=== PATIENT | male | born 1945 | race Caucasian/White ===

== ENCOUNTER 2016-08-02 16:35 | Inpatient (IN) | payer MEDICARE ==
[~2016-08-02 16:35] MED LIST: ATOR40TA PO; CENTCHW3 PO; CILO50 PO; DIGO0.127 PO; ECASA PO; FLUO20TA20 PO; LANTUS2P SC; METO25 PO; NOVO7030P2 SQ; PLAV75TA PO; PREV15CA PO; VITA500015 PO
[2016-08-03 22:26] VITALS: BP 158/81; PULSE 63; RESP 18; TEMP 98.2; O2SAT 97
[2016-08-04] VITALS (14 sets, daily range): BP systolic 130–176; BP diastolic 67–81; PULSE 55–71; RESP 18; TEMP 97.5–98.6; O2SAT 96–99
[2016-08-04] MEDS: DEXT 5%-NACL 0.45% 1000 ML INJ 1,000 ML IV SCH ×3 (00:30→23:31)
[2016-08-04] MEDS ORDERED: MORPHINE SULFATE 4 MG/ML INJ IV PUSH PRN (00:30)
[2016-08-04] MEDS ORDERED: DEXTROSE 50% IN WATER 50 ML VIAL(D50) IV PUSH PRN ×2 (01:30→07:00)
[2016-08-04] MEDS ORDERED: GLUCAGON 1 MG/ML VIAL OTHER PRN ×2 (01:30→07:00)
[2016-08-04 06:27] LABS: AUTOMATED NEUTROPHIL # 5.1 TH/MM3 (1.8-7.7); BASOPHIL # 0.1 TH/MM3 (0-0.2); BASOPHIL % 0.9 % (0.0-2.0); EOSINOPHIL # 0.3 TH/MM3 (0-0.4); EOSINOPHIL % 4.4 % (0.0-4.0); HEMATOCRIT 36.3 % (39.0-51.0); HEMO FLAGS DIFF FINAL; LYMPH % 16.5 % (9.0-44.0); LYMPHOCYTE # 1.2 TH/MM3 (1.0-4.8); MEAN CELL VOLUME 80.2 FL (80.0-100.0); MEAN CORPUSCULAR HEMOGLOBIN 27.8 PG (27.0-34.0); MEAN CORPUSCULAR HGB CONC 34.6 % (32.0-36.0); MONO % 6.7 % (0.0-8.0); NEUT % 71.5 % (16.0-70.0); PLATELET COUNT 247 TH/MM3 (150-450); RED BLOOD COUNT 4.52 MIL/MM3 (4.50-5.90); RED CELL DISTRIBUTION WIDTH 13.9 % (11.6-17.2); WHITE BLOOD COUNT 7.2 TH/MM3 (4.0-11.0)
[2016-08-04 06:50] LABS: POTASSIUM 4.3 MEQ/L (3.5-5.1)
[2016-08-04] MEDS: CILOSTAZOL 50 MG TAB PO SCH ×2 (07:00→16:21)
[2016-08-04] MEDS ORDERED: ENOXAPARIN SODIUM 30 MG/0.3 ML SYRINGE SQ SCH (07:00)
[2016-08-04] MEDS: LOW DOSE INSULIN NOVOLOG SUPPLEMENTAL SCALE SQ SCH ×4 (07:00→20:16)
--- NOTE | 2016-08-04 08:24 | HHI.HP ---
History of Present Illness Chief Complaint: R groin infection History of Present Illness 70 yo male with PAD who had R LEGAL PRACTICE MANAGER TEA w/ patch in 2003 and then repeated about a week ago. He was seen at OSH earlier this week and there was clear fluid from the groin and concerns of a groin wound infection. The patient denies fevers, chills or malaise. 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 He has a history of R LE endovascular procedures multiple times. He denies rest pain. At present, he feels well overall. Past/Family/Social History Past Medical History PAD HTN XOL DM CAD Past Surgical History R groin reconstruction x 2 CABG Family History none Home Medications Active Scripts Cilostazol (Pletal 50 mg Tab)50 Mg [id number] Mg PO BIDAC #30 TAB Ref 11 Prov:Eliecer Turcios MD 07/18/15 Aspirin (Aspirin EC)325 Mg [id number] Mg PO DAILY #30 TAB Ref 11 Prov:Eliecer Turcios MD 07/18/15 Reported Medications Fluoxetine Hcl 20MG Cap20 Mg PO DAILY 11/20/14 Cholecalciferol (Vitamin D3)5,000 Unit Cap5,000 Unit PO DAILY 10/07/14 Lansoprazole (Prevacid 24Hr)15 Mg Cap30 Mg PO DAILY 10/07/14 Clopidogrel Bisulfate (Plavix)75 Mg Tab75 Mg PO DAILY 10/07/14 Metoprolol Tartrate 25 mg 25 Mg Tab25 Mg PO BID 10/07/14 Insulin Human Isophan/Regular (Novolin 70/30)100 Units/Ml Inj Sq As Directed Sliding Scale As Directed. 10/07/14 Insulin Glargine (Lantus)100 Units/Ml Inj50 Units SC BID 10/07/14 Digoxin (Digox 0.125 mg)0.125 Mg Tab2 Tab PO DAILY 1 TAB ON Tuesday10/07/14 Atorvastatin 40 mg 40 Mg Tab40 Mg PO HS 10/07/14 Multiple Vitamins W/ Minerals (Centrum Silver)Silver Chw1 Tab PO DAILY 10/07/14 Coded Allergies: No Known Allergies (Unverified , 10/07/14) Review of Systems Constitutional: COMPLAINS OF: Weight loss, DENIES: Fever, Chills Respiratory: COMPLAINS OF: Cough, DENIES: Wheezing, Shortness of breath Cardiovascular: COMPLAINS OF: Dyspnea on Exertion, Lower Extremity Edema, DENIES: Chest pain Physical Exam Vitals/I&O Date Time Temp Pulse Resp B/P Pulse Ox O2 Delivery O2 Flow Rate FiO2 08/04/16 04:00 97.5 55 18 130/69 98 08/04/16 00:00 58 08/03/16 22:26 98.2 63 18 158/81 97 08/04/16 08/04/16 08/04/16 07:00 15:00 23:00 Output Total 700 ml Balance -700 ml Neuro: alert, oriented, pleasant HEENT: NC/AT Neck: no JVD Heart: reg rate Lungs: clear, no wheezing Abdomen: NT Vascular: Palp R groin pulse R groin incision slightly full, closed with yasmani Extremities: no palpable pedal pulses Distal 3rd toe tip gangrenous Laboratory Tests Test 08/04/16 05:05 White Blood Count 7.2 Red Blood Count 4.52 Hemoglobin 12.6 Hematocrit 36.3 Mean Corpuscular Volume 80.2 Mean Corpuscular Hemoglobin 27.8 Mean Corpuscular Hemoglobin 34.6 Concent Red Cell Distribution Width 13.9 Platelet Count 247 Mean Platelet Volume 7.2 Neutrophils (%) (Auto) 71.5 Lymphocytes (%) (Auto) 16.5 Monocytes (%) (Auto) 6.7 Eosinophils (%) (Auto) 4.4 Basophils (%) (Auto) 0.9 Neutrophils # (Auto) 5.1 Lymphocytes # (Auto) 1.2 Monocytes # (Auto) 0.5 Eosinophils # (Auto) 0.3 Basophils # (Auto) 0.1 CBC Comment DIFF FINAL Differential Comment Sodium Level 142 Potassium Level 4.3 Chloride Level 104 Carbon Dioxide Level 33.0 Anion Gap 5 Blood Urea Nitrogen 8 Creatinine 0.79 Estimat Glomerular Filtration 97 Rate Random Glucose 90 Calcium Level 9.4 Assessment and Plan Plan possible R groin infection s/p revasc x 2 1. CV meds : ASA, statin, beta virgilio, SSI for DM 2. FRANTZ, UE/LE vein survey for possible revascularization 3. CTA to eval for dipak-graft fluid Abner Chavez MD FACS lieutenant ballistics [facility] - Heart and Vascular Surgery at [facility] [phone] Abner Chavez MD Aug 04, 2016 08:24
[2016-08-04] MEDS ORDERED: LANSOPRAZOLE 30 MG PO SCH (09:00)
[2016-08-04] MEDS: DIGOXIN 0.125 MG TAB PO SCH (09:15)
[2016-08-04] MEDS: CLOPIDOGREL 75 MG TAB PO SCH (09:15)
[2016-08-04] MEDS: PANTOPRAZOLE SOD 40 MG DELAYED RELEASE TAB PO SCH (09:15)
[2016-08-04] MEDS: ASPIRIN EC 325 MG TABEC PO SCH (09:15)
[2016-08-04] MEDS: METOPROLOL TARTRATE 25 MG TAB PO SCH ×2 (09:15→20:15)
[2016-08-04] MEDS ORDERED: IOHEXOL 350 MG/ML 10 ML VIAL (for RAD DIAG) IV ONE (09:46)
--- NOTE | 2016-08-04 10:15 | RADRPT ---
EXAM DATE/TIME: 08/04/2016 09:50 [facility] COMPARISON: No previous studies available for comparison. INDICATIONS : Evaluate for penumonia, pneumothorax,or communicable disease. Pre op for femoral bypass. MEDICAL HISTORY : Hypertension. Hypercholesterolemia. Hiatal hernia. CAD. Myocardial infarction. PVD. COPD. Diabeti c. SURGICAL HISTORY : CABG. Cardiac stent. ENCOUNTER: Initial ACUITY: 1 day PAIN SCORE: 0/10 LOCATION: chest FINDINGS: PA and lateral views of the chest demonstrate the lungs to be symmetrically aerated without evidence of mass, infiltrate or effusion. The cardiomediastinal contours are unremarkable. Osseous structure s are intact. CONCLUSION: Sternal wires of previous bypass otherwise negative Todd Gage MD FACR on August 04, 2016 at 10:11 Board Certified Radiologist. This report was verified electronically.
--- NOTE | 2016-08-04 11:01 | RADRPT ---
EXAM DATE/TIME: 08/04/2016 09:32 [facility] COMPARISON: No previous studies available for comparison. INDICATIONS : Peripheral arterial disease. IV CONTRAST: 97 cc Omnipaque 350 (iohexol) IV RADIATION DOSE: 10.61 CTDIvol (mGy) MEDICAL HISTORY : Hypertension. Peripheral vascular disease.Laryngeal cancer, diabetes SURGICAL HISTORY : CABG Right leg endovascular procedures, left femoral stent ENCOUNTER: Initial ACUITY: 1 day PAIN SCALE: 0/10 LOCATION: lower quadrant TECHNIQUE: Volumetric scanning was performed using a multi-row detector CT scanner. The data was post processed with a variety of visualization algorithms including full volume maximum intensity projection, multi -planar sliding thin slab reformation, curved planar reformation, and surface rendering techniques. Using automated exposure control and adjustment of the mA and/or kV according to patient size, radiat ion dose was kept as low as reasonably achievable to obtain optimal diagnostic quality images. FINDINGS: Examination of the lung bases demonstrates no abnormality. No pleural fluid is identified. No pulmona ry nodules are present. The visualized portion of the liver and spleen are normal. The gallbladder an d pancreas are unremarkable. No intrahepatic or extrahepatic ductal dilatation is seen. The adrenal g lands and kidneys appear normal bilaterally. No hydronephrosis or mass lesions are identified. There is a moderate amount of fecal material throughout the colon. The aorta is normal in caliber. There is no evidence of aneurysm or dissection. The celiac and superi or mesenteric arteries are patent. The left renal artery origin is patent. An accessory right renal a rtery is present. There is 60-70% stenosis at the origin of the main right renal artery Examination of the right lower extremity demonstrates no evidence of inflow stenosis. The common femo ral artery is patent with recent surgery. There is long segment occlusion of the superficial femoral artery with a stent in place with reconstitution of the distal popliteal segment. There is two vessel runoff to the ankle via the posterior tibial and peroneal branch though there is diffuse disease inv olving the peroneal branch. Examination of the left lower extremity demonstrates no evidence of inflow stenosis. The common femor al artery demonstrates 70-80% stenosis in its midportion with a stent in the proximal superficial fem oral artery demonstrating complete occlusion. There is reconstitution at the distal portion of the st ent with diffuse atherosclerotic disease in the distal superficial femoral artery and popliteal segme nt. There is extensive calcific disease involving the trifurcation with single vessel runoff via the posterior tibial artery. CONCLUSION: 1. Long segment occlusion of both superficial femoral arteries. 2. No inflow stenosis is identified. 3. There is single vessel runoff bilaterally via the posterior tibial arteries. Eddy Cruz MD on August 04, 2016 at 10:49 Board Certified Radiologist. This report was verified electronically.
[2016-08-04] MEDS: hydrALAZINE HCL 20 MG/ML VIAL IV PUSH PRN ×2 (12:13→16:22)
[2016-08-04] MEDS: MULTIVITAMINS/MINERALS THERAPEUTIC TAB PO SCH (12:34)
[2016-08-04] MEDS: FLUoxetine HCL 20 MG CAP PO SCH (12:34)
[2016-08-04] MEDS: CHOLECALCIFEROL (VIT D3) 5000 UNIT CAP PO SCH (13:00)
[2016-08-04] MEDS ORDERED: ONDANSETRON HCL 4 MG/2 ML VIAL IV PUSH PRN (15:15)
--- NOTE | 2016-08-04 16:41 | RADRPT ---
EXAM DATE/TIME: 08/04/2016 13:07 [place] Corrected on: August 04, 2016; [facility] COMPARISON: CTA RUNOFF W 3D RECON, August 04, 2016, 9:32. EXTERNAL COMPARISON : [facility], CTA Aorta runoff, June 04, 2016POI, Ultrasound leg mapping venous, 01/20/11 an d 12/28/10. POI, Venous doppler bilateral legs, 12/28/10. INDICATIONS : PreOp. MEDICAL HISTORY : Hypertension. Afib. Carotid stenosis. CAD. Hyperlipidemia. Diabetic. Hypertension. PVD. SURGICAL HISTORY : Left PST SUPERVISOR stent. Right endarterectomy. ENCOUNTER: Initial ACUITY: 1 day PAIN SCORE: 0/10 LOCATION: Bilateral leg. TECHNIQUE: Venous ultrasound of the left and right leg was performed from the inguinal ligament to the proximal calf. Real-time, color Doppler and spectral tracing, compression and augmentation techniques were us ed. FINDINGS: RIGHT LEG: There is normal compressibility of the deep venous system from the inguinal region to the proximal ca lf. No echogenic clot is seen in the lumen of the common femoral, femoral, popliteal, and posterior tibial veins. There is a normal response of the venous system to proximal and distal augmentation an d respiration. LEFT LEG: There is normal compressibility of the deep venous system from the inguinal region to the proximal ca lf. No echogenic clot is seen in the lumen of the common femoral, femoral, popliteal, and posterior tibial veins. There is a normal response of the venous system to proximal and distal augmentation an d respiration. CONCLUSION: Negative for deep venous thrombosis. Common femoral on the right is not visualized due to surgical b andage. Minimal thrombus is identified in the greater saphenous vein below the knee on the left. Todd Gage MD FACR on August 04, 2016 at 16:38 Board Certified Radiologist. This report was verified electronically. Todd Gage MD FACR on August 04, 2016 at 16:46 Board Certified Radiologist. This report was verified electronically.
--- NOTE | 2016-08-04 16:42 | RADRPT ---
EXAM DATE/TIME: 08/04/2016 13:14 [facility] COMPARISON: No previous studies available for comparison. INDICATIONS : PreOp. MEDICAL HISTORY : Hypertension. Diabetic. Afib. Carotid stenosis. CAD. Hyperlipidemia. Diabetic. PVD. SURGICAL HISTORY : Carotid endarterectomy. Left INSTRUMENT CHECKER stent. ENCOUNTER: Initial ACUITY: 1 day PAIN SCORE: 0/10 LOCATION: Bilateral leg. GREATER SAPHENOUS VEIN THIGH: PROXIMAL: Right 3 mm Left 3 mm MID: Right 2 mm Left 2 mm DISTAL: Right 2 mm Left 3 mm CALF: PROXIMAL: Right 1 mm Left 2 mm MID: Right 1 mm Left Thrombosed DISTAL: Right Non-visualized Left Non-visualized FINDINGS: The venous system of the lower extremities are patent by color Doppler imaging. Measurements of the leg veins (in mm) are listed above. CONCLUSION: Venous mapping as described above. There is thrombosis in the left mid greater saphe nous vein.. Todd Gage MD FACR on August 04, 2016 at 16:39 Board Certified Radiologist. This report was verified electronically.
--- NOTE | 2016-08-04 16:43 | RADRPT ---
EXAM DATE/TIME: 08/04/2016 13:39 [facility] COMPARISON: No previous studies available for comparison. EXTERNAL COMPARISON : [facility], CTA Aorta runoff, June 04, 2016POI, Ultrasound leg mapping venous, 01/20/11 an d 12/28/10. POI, Venous doppler bilateral legs, 12/28/10. INDICATIONS : PreOp. MEDICAL HISTORY : Hypertension. Afib. Carotid stenosis. CAD. Hyperlipidemia. Diabetic. Hypertention. PVD. SURGICAL HISTORY : Carotid endarterectomy right. Left ELECTROLYTIC DE SCALER stent. ENCOUNTER: Initial ACUITY: 1 day PAIN SCORE: 0/10 LOCATION: Bilateral arm. FINDINGS: RIGHT UPPER EXTREMITY: There is spontaneous flow documented in the brachial, basilic, cephalic, axillary, and subclavian vei ns. The vessels are compressible and augmentation response is documented. No filling defects are se en. The flow is phasic with respiration. Direction of flow in the jugular vein is caudal. LEFT UPPER EXTREMITY: There is spontaneous flow documented in the brachial, basilic, cephalic, axillary, and subclavian vei ns. The vessels are compressible and augmentation response is documented. No filling defects are se en. The flow is phasic with respiration. Direction of flow in the jugular vein is caudal. CONCLUSION: Negative for venous thrombosis. Todd Gage MD FACR on August 04, 2016 at 16:40 Board Certified Radiologist. This report was verified electronically.
--- NOTE | 2016-08-04 16:43 | RADRPT ---
EXAM DATE/TIME: 08/04/2016 13:56 [facility] COMPARISON: No previous studies available for comparison. EXTERNAL COMPARISON : [facility], CTA Aorta runoff, June 04, 2016POI, Ultrasound leg mapping venous, 01/20/11 an d 12/28/10. POI, Venous doppler bilateral legs, 12/28/10. INDICATIONS : PreOp. MEDICAL HISTORY : Hypertension. Diabetic. Afib. Carotid stenosis. CAD. Hyperlipidemia. PVD. SURGICAL HISTORY : Cartoid endarterectomy right. Left common femoral artery stent. ENCOUNTER: Initial ACUITY: 1 day PAIN SCORE: 0/10 LOCATION: Bilateral arm. CEPHALIC: ORIGIN: Right 1 mm Left 1 mm MID-ARM: Right 2 mm Left 1 mm ELBOW: Right 1 mm Left 2 mm FOREARM: Right 2 mm Left 1 mm WRIST: Right Non-visualized Left 1 mm BASILIC: ORIGIN: Right 5 mm Left 5 mm MID-ARM: Right 2 mm Left 5 mm ELBOW: Right 3 mm Left 3 mm ARTERIES: BRACHIAL: Right 5 mm Left 4 mm ULNAR: Right 2 mm Left 2 mm RADIAL: Right 1 mm Left 1 mm VEINS: RADIAL: Right 1 mm Left 1 mm ULNAR: Right 2 mm Left 1 mm FINDINGS: The venous system of the upper extremities are patent by color Doppler imaging. Measurements of the arm veins (in mm) are listed above. CONCLUSION: Venous mapping as described above. Todd Gage MD FACR on August 04, 2016 at 16:41 Board Certified Radiologist. This report was verified electronically.
[2016-08-04 17:18] LABS: HEMOGLOBIN A1a 0.6 %; HEMOGLOBIN A1b 0.7 %; HEMOGLOBIN Ao 85.9 %; HEMOGLOBIN F 0.8 %; HEMOGLOBIN LA1C 1.6 %; HEMOGLOBIN P3 3.4 %
[2016-08-04] MEDS ORDERED: ATORVASTATIN 40 MG TAB PO SCH (21:00)
[2016-08-05] VITALS (8 sets, daily range): BP systolic 121–188; BP diastolic 58–80; PULSE 64–85; RESP 16–20; TEMP 97.6–98.3; O2SAT 97–98
[2016-08-05] MEDS: LOW DOSE INSULIN NOVOLOG SUPPLEMENTAL SCALE SQ SCH ×2 (04:56→10:51)
[2016-08-05] MEDS: CILOSTAZOL 50 MG TAB PO SCH (04:57)
[2016-08-05] MEDS: hydrALAZINE HCL 20 MG/ML VIAL IV PUSH PRN (05:00)
[2016-08-05 06:50] LABS: MEAN CELL VOLUME 80.6 FL (80.0-100.0); MEAN CORPUSCULAR HEMOGLOBIN 26.7 PG (27.0-34.0); MEAN CORPUSCULAR HGB CONC 33.1 % (32.0-36.0); PLATELET COUNT 228 TH/MM3 (150-450); RED BLOOD COUNT 4.71 MIL/MM3 (4.50-5.90); RED CELL DISTRIBUTION WIDTH 13.9 % (11.6-17.2); REVIEW FLAG FINAL; WHITE BLOOD COUNT 5.9 TH/MM3 (4.0-11.0)
[2016-08-05 07:23] LABS: BICARBONATE 31.2 MEQ/L (21.0-32.0); POTASSIUM 3.9 MEQ/L (3.5-5.1)
[2016-08-05] MEDS: CLOPIDOGREL 75 MG TAB PO SCH (09:53)
[2016-08-05] MEDS: FLUoxetine HCL 20 MG CAP PO SCH (09:53)
[2016-08-05] MEDS: DIGOXIN 0.125 MG TAB PO SCH (09:53)
[2016-08-05] MEDS: PANTOPRAZOLE SOD 40 MG DELAYED RELEASE TAB PO SCH (09:54)
[2016-08-05] MEDS: ASPIRIN EC 325 MG TABEC PO SCH (09:54)
[2016-08-05] MEDS: METOPROLOL TARTRATE 25 MG TAB PO SCH (09:54)
[2016-08-05] MEDS: MULTIVITAMINS/MINERALS THERAPEUTIC TAB PO SCH (09:54)
[2016-08-05] MEDS: CHOLECALCIFEROL (VIT D3) 5000 UNIT CAP PO SCH (10:06)
--- NOTE | 2016-08-05 10:45 | PD.VS.PN ---
Subjective Subjective/Hospital Course Pt adm with concerns of groin infection because of slight drainage caudal aspect of the wound. He feels well and has no F/C. His WBC is normal. His wound actually looks quite good. CTA yesterday showed no obvious infection - only normal post-operative changes. Foot ok and middle toe stable dry gangrene. No rest pain Objective Vitals/I&O Date Time Temp Pulse Resp B/P Pulse Ox O2 Delivery O2 Flow Rate FiO2 08/05/16 10:00 76 08/05/16 09:00 85 08/05/16 08:00 70 08/05/16 07:00 74 08/05/16 07:00 97.9 77 20 165/69 97 08/05/16 06:02 149/58 08/05/16 04:00 68 08/05/16 04:00 97.7 73 18 188/80 98 08/05/16 00:00 98.3 67 16 121/72 98 08/05/16 00:00 64 08/04/16 20:00 66 08/04/16 20:00 98.6 71 18 131/69 99 08/04/16 18:01 68 08/04/16 17:00 66 08/04/16 16:00 66 08/04/16 15:45 62 08/04/16 15:45 98.1 61 18 176/81 96 08/04/16 14:02 58 08/04/16 13:05 59 08/04/16 12:22 58 08/04/16 11:15 97.5 59 18 173/67 99 08/04/16 11:15 55 08/05/16 08/05/16 08/05/16 07:00 15:00 23:00 Intake Total 1680 ml Output Total 1650 ml Balance 30 ml Physical Exam R groin incision intact with yasmani. Minimal serosanguinous drainage caudal aspect of wound. No surrounding erythema. Laboratory Laboratory Tests Test 08/05/16 05:50 White Blood Count 5.9 Red Blood Count 4.71 Hemoglobin 12.6 Hematocrit 38.0 Mean Corpuscular Volume 80.6 Mean Corpuscular Hemoglobin 26.7 Mean Corpuscular Hemoglobin 33.1 Concent Red Cell Distribution Width 13.9 Platelet Count 228 Mean Platelet Volume 7.3 Sodium Level 141 Potassium Level 3.9 Chloride Level 103 Carbon Dioxide Level 31.2 Anion Gap 7 Blood Urea Nitrogen 7 Creatinine 0.80 Estimat Glomerular Filtration 95 Rate Random Glucose 188 Calcium Level 9.3 Imaging Last 48 hours Impressions Upper Extremity Ultrasound 08/04/16 Signed Impressions: Service Date/Time: Thursday, August 04, 2016 13:39 - CONCLUSION: Negative for venous thrombosis. Todd Gage MD FACR Upper Extremity Ultrasound 08/04/16 Signed Impressions: Service Date/Time: Thursday, August 04, 2016 13:56 - CONCLUSION: Venous mapping as described above. Todd Gage MD FACR Lower Extremity Ultrasound 08/04/16 Signed Impressions: Service Date/Time: Thursday, August 04, 2016 13:07 - CONCLUSION: Negative for deep venous thrombosis. Common femoral on the right is not visualized due to surgical bandage. Minimal thrombus is identified in the greater saphenous vein below the knee on the left. Todd Gage MD FACR Lower Extremity Ultrasound 08/04/16 Signed Impressions: Service Date/Time: Thursday, August 04, 2016 13:14 - CONCLUSION: Venous mapping as described above. There is thrombosis in the left mid greater saphenous vein.. Todd Gage MD FACR Chest X-Ray 08/04/16 Signed Impressions: Service Date/Time: Thursday, August 04, 2016 09:50 - CONCLUSION: Sternal wires of previous bypass otherwise negative Todd Gage MD FACR Aorta w/Runoff CTA 08/04/16 Signed Impressions: Service Date/Time: Thursday, August 04, 2016 09:32 - CONCLUSION: 1. Long segment occlusion of both superficial femoral arteries. 2. No inflow stenosis is identified. 3. There is single vessel runoff bilaterally via the posterior tibial arteries. Eddy Cruz MD Assessment and Plan Plan possible R groin infection s/p revasc x 2; CTA unimpressive for infection and no clinical signs of infection 1. CV meds : ASA, statin, beta virgilio, SSI for DM 2. d/c home and RTC 1 week. 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 3. In terms of his underlying PAD, I will get ABIs as outpatient. He may need add'l revasc for the toe wound. Abner Chavez MD FACS staff physician [facility] - Heart and Vascular Surgery at [facility] [phone] Discharge Planning today. RTC 1 week with Abner Swenson MD Aug 05, 2016 10:45
--- NOTE | 2016-08-05 11:06 | PD.VS.DC ---
Discharge Summary Admission Date: Aug 03, 2016 at 22:20 Discharge Date: Aug 05, 2016 Admission Diagnosis: (1) PAD (peripheral artery disease) Discharge Diagnosis: (1) PAD (peripheral artery disease) Status: Chronic Brief History from admission 70 yo male with PAD who had R [employer] TEA w/ patch in 2003 and then repeated about a week ago. He was seen at OSH earlier this week and there was clear fluid from the groin and concerns of a groin wound infection. The patient denies fevers, chills or malaise. 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 He has a history of R LE endovascular procedures multiple times. He denies rest pain. At present, he feels well overall. Procedure(s): Imaging No surgical intervention Significant Findings GENERAL: A&OX3, GCS15, NAD, Pleasant 70/M SKIN: Warm and dry , Right groin incision with staple closure intact/ minimal serosanguineous drainage noted, skin clean and dry with no redness/swelling/odor RESPIRATORY: No accessory muscle use. MUSCULOSKELETAL: No cyanosis, or edema. Right 3rd digit (toe) present with dry gangrene, BLE warm with motor intact Laboratory Tests Test 08/04/16 08/05/16 05:05 05:50 Hemoglobin 12.6 GM/DL 12.6 GM/DL (13.0-17.0) (13.0-17.0) Hematocrit 36.3 % 38.0 % (39.0-51.0) (39.0-51.0) Neutrophils (%) (Auto) 71.5 % (16.0-70.0) Eosinophils (%) (Auto) 4.4 % (0.0-4.0) Carbon Dioxide Level 33.0 MEQ/L (21.0-32.0) Hemoglobin A1c 6.4 % (4.3-6.0) Mean Corpuscular Hemoglobin 26.7 PG (27.0-34.0) Random Glucose 188 MG/DL (74-106) Hospital Course: Mr. Rojo is a 70 yo male with a PMH of PAD who had R [employer]CTOR TEA w/ patch in 2003 and then repeated about a week ago. He was seen at OSH earlier this week and there was clear fluid from the groin and concerns of a groin wound infection. The patient denies fevers, chills or malaise. 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 He has a history of R LE endovascular procedures multiple times. He denies rest pain. At present, he feels well overall. Pt with possible R groin infection s/p revasc x 2; CTA unimpressive for infection and no clinical signs of infection. Pt Ok for D/C today and will f/u in our OPC on 08/13/16. Will continue to monitor pt in our OPC Allergies Coded Allergies Type Severity Reaction Last Updated Verified No Known Allergies 10/07/14 No Recent Impressions Upper Extremity Ultrasound 08/04/16 0000 Signed Impressions: Service Date/Time: Thursday, August 04, 2016 13:39 - CONCLUSION: Negative for venous thrombosis. Todd Gage MD FACR Upper Extremity Ultrasound 08/04/16 0000 Signed Impressions: Service Date/Time: Thursday, August 04, 2016 13:56 - CONCLUSION: Venous mapping as described above. Todd Gage MD FACR Lower Extremity Ultrasound 08/04/16 0000 Signed Impressions: Service Date/Time: Thursday, August 04, 2016 13:07 - CONCLUSION: Negative for deep venous thrombosis. Common femoral on the right is not visualized due to surgical bandage. Minimal thrombus is identified in the greater saphenous vein below the knee on the left. Todd Gage MD FACR Lower Extremity Ultrasound 08/04/16 0000 Signed Impressions: Service Date/Time: Thursday, August 04, 2016 13:14 - CONCLUSION: Venous mapping as described above. There is thrombosis in the left mid greater saphenous vein.. Todd Gage MD FACR Chest X-Ray 08/04/16 0000 Signed Impressions: Service Date/Time: Thursday, August 04, 2016 09:50 - CONCLUSION: Sternal wires of previous bypass otherwise negative Todd Gage MD FACR Aorta w/Runoff CTA 08/04/16 0000 Signed Impressions: Service Date/Time: Thursday, August 04, 2016 09:32 - CONCLUSION: 1. Long segment occlusion of both superficial femoral arteries. 2. No inflow stenosis is identified. 3. There is single vessel runoff bilaterally via the posterior tibial arteries. Eddy Cruz MD 08/03////// 06:00 18:00 06:00 18:00 06:00 18:00 Intake Total 1395 ml 1680 ml Output Total 700 ml 1650 ml Balance -700 ml 1395 ml 30 ml Intake Oral 720 ml 480 ml IV Total 675 ml 1200 ml Output Urine Total 700 ml 1650 ml # Bowel Movements 1 Laboratory Tests Test 08/04/16 08/05/16 05:05 05:50 White Blood Count 7.2 TH/MM3 5.9 TH/MM3 Red Blood Count 4.52 MIL/MM3 4.71 MIL/MM3 Hemoglobin 12.6 GM/DL 12.6 GM/DL Hematocrit 36.3 % 38.0 % Mean Corpuscular Volume 80.2 FL 80.6 FL Mean Corpuscular Hemoglobin 27.8 PG 26.7 PG Mean Corpuscular Hemoglobin 34.6 % 33.1 % Concent Red Cell Distribution Width 13.9 % 13.9 % Platelet Count 247 TH/MM3 228 TH/MM3 Mean Platelet Volume 7.2 FL 7.3 FL Neutrophils (%) (Auto) 71.5 % Lymphocytes (%) (Auto) 16.5 % Monocytes (%) (Auto) 6.7 % Eosinophils (%) (Auto) 4.4 % Basophils (%) (Auto) 0.9 % Neutrophils # (Auto) 5.1 TH/MM3 Lymphocytes # (Auto) 1.2 TH/MM3 Monocytes # (Auto) 0.5 TH/MM3 Eosinophils # (Auto) 0.3 TH/MM3 Basophils # (Auto) 0.1 TH/MM3 CBC Comment DIFF FINAL Differential Comment Sodium Level 142 MEQ/L 141 MEQ/L Potassium Level 4.3 MEQ/L 3.9 MEQ/L Chloride Level 104 MEQ/L 103 MEQ/L Carbon Dioxide Level 33.0 MEQ/L 31.2 MEQ/L Anion Gap 5 MEQ/L 7 MEQ/L Blood Urea Nitrogen 8 MG/DL 7 MG/DL Creatinine 0.79 MG/DL 0.80 MG/DL Estimat Glomerular Filtration 97 ML/MIN 95 ML/MIN Rate Random Glucose 90 MG/DL 188 MG/DL Hemoglobin A1c 6.4 % Calcium Level 9.4 MG/DL 9.3 MG/DL Procedure Category Date Status Time Complete Blood Count LAB 08/04/16 Complete With Diff 06:00 Basic Metabolic Panel LAB 08/04/16 Complete (Bmp) 06:00 ^ IV JESSICA 08/04/16 In Process 00:17 ^ Instruction [facility] 08/04/16 In Process 00:17 ^ Blood Glucose Goal [facility] 08/04/16 In Process (Criteria 00:17 ^ Hypoglycemia 51 - JESSICA 08/04/16 In Process 69 Mg/Dl 00:17 ^ Hypoglycemia 50 JESSICA 08/04/16 In Process Mg/Dl Or < 00:17 ^ Notify DrLia LOPEZ 08/04/16 In Process 00:17 Dext 5%-Nacl 0.45% MED 08/04/16 In Process 1000 Ml Inj (D5w-05/10 00:30 Morphine Inj MED 08/04/16 In Process (Morphine Inj) 00:30 Dextrose 50% In Mik MED 08/04/16 Complete (Vial) Inj (D50w (Vi 01:30 Glucagon Inj MED 08/04/16 Complete (Glucagon Inj) 01:30 Insulin Aspart MED 08/04/16 In Process Supplemtl Scale 07:00 Admit To Inpatient ADMITTING 08/04/16 Transmitted Code Status CODE 08/04/16 Transmitted 06:53 Vital Signs (Adult) [facility] 08/04/16 In Process 06:53 Sales And Marketing Engineer / [facility] 08/04/16 Complete Telemetry 06:53 Activity Oob Ad Susana [facility] 08/04/16 In Process 06:53 ^ Notify Dr. LOPEZ 08/04/16 In Process Parameters 06:53 ^ Precautions [facility] 08/04/16 In Process 06:53 Diet 1800 Ada Cons DIET 08/04/16 Transmitted Carb Breakfast Basic Metabolic Panel LAB 08/05/16 Complete (Bmp) 06:00 Cbc No Diff, Includes LAB 08/05/16 Complete Plts 06:00 Chest, Pa & Lat RADDIAG 08/04/16 Resulted Case Management CONS 08/04/16 Transmitted Consult Pantoprazole MED 08/04/16 In Process (Protonix) 09:00 Oxycodone (Roxicodone) MED 08/04/16 In Process 07:00 Enoxaparin Inj MED 08/04/16 Complete (Lovenox Inj) 07:00 Inpatient ADMITTING 08/04/16 Transmitted Certification Aspirin Ec (Ecotrin MED 08/04/16 In Process Ec) 09:00 Atorvastatin (Lipitor) MED 08/04/16 In Process 21:00 Cilostazol (Pletal) MED 08/04/16 In Process 07:00 Clopidogrel (Plavix) MED 08/04/16 In Process 09:00 Digoxin (Lanoxin) MED 08/04/16 In Process 09:00 Metoprolol Tartrate MED 08/04/16 In Process (Lopressor) 09:00 Cholecalciferol MED 08/04/16 In Process (Vitamin D3) 13:00 Fluoxetine (Prozac) MED 08/04/16 In Process 12:15 Multivitamins-Minerals MED 08/04/16 In Process Therap (Theragran 12:15 Arterial Segmt Dopp CAV 08/04/16 Logged Ltd Monalisa Us Venous Mapping Up RADUS 08/04/16 Resulted Ext Bilat Us Venous Mapping Low RADUS 08/04/16 Resulted Ext Bila Cta Runoff W Iv RADCT 08/04/16 Resulted Contrast W 3d ^ Blood Glucose Goal JESSICA 08/04/16 In Process (Criteria 06:58 ^ Hypoglycemia 51 - JESSICA 08/04/16 In Process 69 Mg/Dl 06:58 ^ Hypoglycemia 50 JESSICA 08/04/16 In Process Mg/Dl Or < 06:58 ^ Notify Dr: Other JESSICA 08/04/16 In Process 06:58 Dextrose 50% In Mik MED 08/04/16 In Process (Vial) Inj (D50w (Vi 07:00 Glucagon Inj MED 08/04/16 In Process (Glucagon Inj) 07:00 Vascular Poc IMGUS 08/04/16 Taken Ultrasound Us Leg Venous Doppler [facility] 08/04/16 Resulted Bilat Us Arm Venous Doppler RADUS 08/04/16 Resulted Bilat Hemoglobin (Hgb) A1c LAB 08/04/16 Complete 08:25 Iohexol 350 Inj MED 08/04/16 Complete (Omnipaque 350 Inj) 09:46 Hydralazine Inj MED 08/04/16 In Process (Apresoline Inj) 11:30 Ondansetron Inj MED 08/04/16 In Process (Zofran Inj) 15:15 Attending Discharge DISCHARGE 08/05/16 Transmitted Order Vital Signs Date Time Temp Pulse Resp B/P Pulse Ox O2 Delivery O2 Flow Rate FiO2 08/05/16 10:00 76 08/05/16 09:00 85 08/05/16 08:00 70 08/05/16 07:00 74 08/05/16 07:00 97.9 77 20 165/69 97 08/05/16 06:02 149/58 08/05/16 04:00 68 08/05/16 04:00 97.7 73 18 188/80 98 08/05/16 00:00 98.3 67 16 121/72 98 08/05/16 00:00 64 08/04/16 20:00 66 08/04/16 20:00 98.6 71 18 131/69 99 08/04/16 18:01 68 08/04/16 17:00 66 08/04/16 16:00 66 08/04/16 15:45 62 08/04/16 15:45 98.1 61 18 176/81 96 08/04/16 14:02 58 08/04/16 13:05 59 08/04/16 12:22 58 08/04/16 11:15 97.5 59 18 173/67 99 08/04/16 11:15 55 08/04/16 10:31 57 08/04/16 09:00 56 08/04/16 07:45 97.6 60 18 165/72 98 08/04/16 07:45 56 08/04/16 04:00 97.5 55 18 130/69 98 08/04/16 00:00 58 08/03/16 22:26 98.2 63 18 158/81 97 Discharge Condition: Good Discharge Disposition: Discharge Home Discharge Instructions: Follow up in our OPC on 08/13/16 Call the office to report any new onset fever, chills, redness, increased drainage, odor or swelling. Keep dressing clean and dry and change as needed if soiled Shannon IBRAHIM [facility] [phone] Any questions or concerns: Call [facility] V[facility] Surgery at [facility] [phone] Shannon Martinez Aug 05, 2016 11:06
[2016-09-24] MEDS ORDERED: FISH500C PO (12:02)
[2016-09-24] MEDS ORDERED: ATOR40TA16 PO (12:02)
[2016-09-24] MEDS ORDERED: PLAV75TA29 PO (12:02)
[2016-09-24] MEDS ORDERED: PREV15CA PO (12:02)
[2016-09-24] MEDS ORDERED: CENTTAB PO (12:02)
[2016-09-24] MEDS ORDERED: ASPI1TAB69 PO (12:02)
[2016-09-24] MEDS ORDERED: CHOL50008 PO (12:02)
[2016-09-24] MEDS ORDERED: NAPR220T95 PO (12:02)
[2016-09-24] MEDS ORDERED: METO100T PO (12:02)
[2016-09-24] MEDS ORDERED: CILO100T PO (12:02)
[2016-09-24] MEDS ORDERED: LANTUS2P SQ (12:02)
[2016-09-24] MEDS ORDERED: NOVORP2 SQ (12:02)
[2016-09-24] MEDS ORDERED: DIGO0.12 PO ×2 (12:02)
[2016-09-24] MEDS ORDERED: FLUO20CA4 PO (12:02)
[2016-09-27] MEDS ORDERED: METO50TA PO (13:24)
== END 2016-08-05 12:31 | disposition home or self-care (01) | DRG 301 ==
LOC: HCIS 08-03 22:20
PROVIDERS: ADMIT Surgery; ATTEND Surgery
PROC: B41DZZZ Fluoroscopy of Aorta and Bilateral Lower Extremity Arteries (ICD-10-PCS; principal; 2016-08-04)
DX: I70.261 Atherosclerosis of native arteries of extremities with gangrene, right leg (principal); I48.91 Unspecified atrial fibrillation; E11.9 Type 2 diabetes mellitus without complications; I10 Essential (primary) hypertension; I70.202 Unspecified atherosclerosis of native arteries of extremities, left leg; I25.10 Atherosclerotic heart disease of native coronary artery without angina pectoris; Z79.4 Long term (current) use of insulin; Z95.1 Presence of aortocoronary bypass graft
CPT/HCPCS: 71020; 75635; 76937; 80048; 82948; 83036; 85025; 85027; 93970; 93998; J0360; J1815; Q9967

== ENCOUNTER → 2016-09-27 | Day surgery (SDC) | payer MEDICARE ==
[~2016-09-27] MED LIST changes: +ASPI1TAB69 PO; +ASPI1TAB91 PO; -ATOR40TA PO; +ATOR40TA16 PO; +AUGM875T3 PO; +BUPIVACAINE HCL PF 0.5% 30 ML VIAL ONE; +CENTTAB PO; +CHLORHEXIDINE GLUCONATE 2 % 1 PACK (2 CLOTHS) TOPICAL PRN; +CHOL5000 PO; +CHOL50008 PO; +CILO100T PO; -CILO50 PO; +DIGO0.12 PO; -DIGO0.127 PO; -ECASA PO; +FISH500C PO; +FLUO10CA4 PO; +FLUO20CA4 PO; -FLUO20TA20 PO; +HALO0.5T PO; +INSULIN HUMAN REGULAR 1,000 UNITS/10 ML VIAL SQ PRN; +LACTATED RINGER'S 1000 ML IV PRN; -LANTUS2P SC; +LANTUS2P SQ; +MEDI220T PO; +METO100T PO; -METO25 PO; +METO50TA PO; +METOPROLOL TARTRATE 25 MG TAB PO PRN; +NAPR220T95 PO; -NOVO7030P2 SQ; +NOVORP2 SQ; +ONDANSETRON HCL 4 MG/2 ML VIAL IV PUSH ONE; +OXYC1CAP PO; +PHENYLEPH/NS 1000 MCG/10 ML SYR IV ONE; -PLAV75TA PO; +PLAV75TA29 PO; +POVIDONE IODINE 5% (ANTISEPSIS KIT) 4 APPLICATIONS EACH NARE PRN; +PROPOFOL 200 MG/20 ML AMP IV ONE; +PROZ20CA11 PO; +SODIUM CHLORID 0.9% 500 ML IV PRN; -VITA500015 PO; +ceFAZolin 2 GM PREMIX 50 ML ONE
[2016-09-27 13:31] VITALS: BP 140/76; PULSE 78; RESP 16; TEMP 97.1; O2SAT 98
[2016-09-27 13:52] LABS: BLOOD, URINE NEG (NEG); COMMENT (UR) CULT NOT INDICATED; CULTURE IF INDICATED CULT NOT INDICATED; GLUCOSE,URINE TRACE mg/dL (NEG); KETONE, URINE NEG (NEG); MUCUS URINE FEW /lpf (OCC); NITRITE,URINE NEG (NEG); URINE COLOR YELLOW (YELLW/STRAW)
--- NOTE | 2016-09-27 14:22 | HHI.PR ---
Immediate Post Op Note Procedure Date: September 27, 2016 Pre Op Diagnosis: R 3rd toe osteomyelitis Post Op Diagnosis: R 3rd toe osteomyelitis Surgeon: Abner Chavez Payroll Processor(s): none Procedure: R 3rd toe amputation (Ray) Findings: no infection, decent perfusion Complications: none Specimen(s) removed: R 3rd toe Estimated blood loss: 20mL Anesthesia: LMA Drains: None Fluids: 500mL IVF Patient to: PACU Patient Condition: Good Date/Time of Procedure: SEE SURGICAL CARE RECORD Abner Chavez MD September 27, 2016 14:22
[2016-09-27 15:35] VITALS: BP 154/74; PULSE 75; RESP 16; TEMP 97.3; O2SAT 99
--- NOTE | 2016-09-28 11:05 | MP ---
cc: ABNER CHAVEZ MD DATE OF SURGERY: 09/27/2016 PREOPERATIVE DIAGNOSIS Right third toe osteomyelitis. POSTOPERATIVE DIAGNOSIS Right third toe osteomyelitis. PROCEDURE Right third toe ray amputation. ATTENDING SURGEON Abner Chavez ANESTHESIA LMA. INDICATION Mr. Rojo is a gentleman who is [id number] who had a previous right wound reconstruction, appears to have adequate perfusion and a right third toe that is frankly osteomyelitic. He is taken to the operating room for amputation. DESCRIPTION OF PROCEDURE Informed consent was obtained. The patient was taken to the operating room and placed supine on the operating table. An appropriate timeout was taken to ensure the patient's identity, operative site and planned procedure. The administration of two grams of Kefzol was initiated prior to skin incision and will be discontinued after the single preoperative dose. Everyone in the room agreed with the timeout and we proceeded. The right leg was prepped and draped and an incision was made at the base of the third toe on the right foot, carried down to subcutaneous tissue with electrocautery. The metatarsophalangeal joint space was encountered and the toe was amputated without difficulty. A rongeur was then used to amputate the distal aspect of the metatarsal head. The wound was irrigated, infiltrated with Marcaine and closed with 2-0 nylon. Sponge and needle counts were correct at the end of the case. I was present and scrubbed for the entire procedure. Abner Chavez MD RJF/BT /2:26 PM /10:56 AM
== END | disposition home or self-care (01) ==
LOC: HSDC 12:37
PROVIDERS: ATTEND Surgery
DX: I96 Gangrene, not elsewhere classified (principal); I10 Essential (primary) hypertension; J44.9 Chronic obstructive pulmonary disease, unspecified
CPT/HCPCS: 01480; 28810; 81001; 86850; 86900; 86901; 88305; 88311; J0690; J2370; J2405; J3010; L3260

== ENCOUNTER 2016-10-03 11:48 | Inpatient (IN) | payer MEDICARE ==
[2016-10-03] VITALS (7 sets, daily range): BP systolic 103–171; BP diastolic 54–88; PULSE 72–91; RESP 16–20; TEMP 97.7–98.3; O2SAT 95–98
[~2016-10-03] VITALS: Ht 190.5 cm; Wt 91.2 kg
[~2016-10-03 11:48] MED LIST changes: -ASPI1TAB91 PO; -AUGM875T3 PO; -BUPIVACAINE HCL PF 0.5% 30 ML VIAL ONE; -CENTCHW3 PO; -CHLORHEXIDINE GLUCONATE 2 % 1 PACK (2 CLOTHS) TOPICAL PRN; -CHOL5000 PO; -FLUO10CA4 PO; -HALO0.5T PO; -INSULIN HUMAN REGULAR 1,000 UNITS/10 ML VIAL SQ PRN; -LACTATED RINGER'S 1000 ML IV PRN; -MEDI220T PO; -METO100T PO; -METOPROLOL TARTRATE 25 MG TAB PO PRN; -ONDANSETRON HCL 4 MG/2 ML VIAL IV PUSH ONE; -OXYC1CAP PO; -PHENYLEPH/NS 1000 MCG/10 ML SYR IV ONE; -POVIDONE IODINE 5% (ANTISEPSIS KIT) 4 APPLICATIONS EACH NARE PRN; -PROPOFOL 200 MG/20 ML AMP IV ONE; -PROZ20CA11 PO; -SODIUM CHLORID 0.9% 500 ML IV PRN; -ceFAZolin 2 GM PREMIX 50 ML ONE
[2016-10-03] MEDS ORDERED: PIPERACIL-TAZO 2.25 GM PREMIX 50 ML IV ONE (12:15)
[2016-10-03] MEDS ORDERED: VANCOMYCIN INJ 1,000 MG in SODIUM CHLOR 0.9% 250 ML INJ 250 ML IV ONE (12:15)
[2016-10-03 12:39] LABS: AUTOMATED NEUTROPHIL # 6.4 TH/MM3 (1.8-7.7); BASOPHIL # 0.1 TH/MM3 (0-0.2); BASOPHIL % 0.9 % (0.0-2.0); EOSINOPHIL # 0.1 TH/MM3 (0-0.4); EOSINOPHIL % 1.5 % (0.0-4.0); HEMATOCRIT 37.8 % (39.0-51.0); HEMO FLAGS DIFF FINAL; LYMPH % 14.9 % (9.0-44.0); LYMPHOCYTE # 1.3 TH/MM3 (1.0-4.8); MEAN CELL VOLUME 79.3 FL (80.0-100.0); MEAN CORPUSCULAR HEMOGLOBIN 27.7 PG (27.0-34.0); MONO % 7.3 % (0.0-8.0); NEUT % 75.4 % (16.0-70.0); PLATELET COUNT 148 TH/MM3 (150-450); RED BLOOD COUNT 4.76 MIL/MM3 (4.50-5.90); RED CELL DISTRIBUTION WIDTH 14.9 % (11.6-17.2); WHITE BLOOD COUNT 8.4 TH/MM3 (4.0-11.0)
[2016-10-03] MEDS ORDERED: MEDI220T PO (12:42)
[2016-10-03] MEDS ORDERED: PROZ20CA11 PO (12:42)
[2016-10-03] MEDS ORDERED: OXYC1CAP PO (12:42)
[2016-10-03] MEDS ORDERED: CENTCHW3 PO (12:42)
[2016-10-03] MEDS ORDERED: CHOL5000 PO (12:42)
[2016-10-03] MEDS ORDERED: ASPI1TAB91 PO (12:42)
[2016-10-03 12:49] LABS: APTT (PATIENT) 28.7 SEC (24.3-30.1); PROTHROMBIN TIME - PATIENT 11.2 SEC (9.8-11.6)
[2016-10-03 12:58] LABS: BICARBONATE 30.1 MEQ/L (21.0-32.0); MAGNESIUM 2.2 MG/DL (1.5-2.5); POTASSIUM 4.1 MEQ/L (3.5-5.1)
--- NOTE | 2016-10-03 13:08 | PD ---
HPI Chief Complaint: Wound/Suture/Staple Re-Check Time Seen by Provider: 13:01 Travel History International Travel<30 days: No Contact w/Intl Traveler<30days: No Traveled to known affect area: No History of Present Illness HPI 70-year-old male that presents to the ED for evaluation of right lower leg infection. Per patient he had an amputation by of the third toe of the right foot. Patient has had no issues since surgery which was done on Tuesday until 2 days ago when the started noticing 10 patient had redness on the second and fourth toes. Patient has wound care by the family member with no issues. Patient states that he went to see the surgeon on and he had no redness or any skin changes. Patient states that he had possible fever yesterday but not today. Patient apparently had contacted his surgeon who recommended that he comes here today. He states that he has 4 out of 10 pain on the foot. He has a history of diabetes and peripheral artery disease. He denies taking any antibiotics currently. He has an allergy to sulfa. He denies any injury or trauma. No purulence. No other medical issues at this time. No falls or injuries. Denies any new numbness, weakness or tingling. Per patient he does have chronic numbness to his foot. PFSH Past Medical History Hx Anticoagulant Therapy: Yes Autoimmune Disease: No Cancer: No Cardiovascular Problems: Yes High Cholesterol: Yes Chest Pain: No COPD: Yes Diabetes: Yes Patient Takes Glucophage: Yes Endocrine: No Gastrointestinal Disorders: Yes (ACID REFLUX) Glaucoma: No Genitourinary: No Hepatitis: No Hiatal Hernia: Yes Hypertension: Yes Immune Disorder: No Neurologic: Yes (numbness in hand and feet) Psychiatric: No Reproductive: No Respiratory: Yes (COPD) Integumentary: No Thyroid Disease: No Tetanus Vaccination: < 5 Years Past Surgical History Abdominal Surgery: Yes ("LINK OF INTESTINE REMOVED") AICD: No Body Medical Devices: stents in heart and legs Cardiac Surgery: Yes (cabage x3, 3 cardiac stents) Ear Surgery: No Eye Surgery: Yes (CATARACT) Joint Replacement: No Neurologic Surgery: No Oral Surgery: No Pacemaker: No Thoracic Surgery: Yes Other Surgery: Yes (toes) Social History Alcohol Use: No Tobacco Use: No (FORMER) Substance Use: No Allergies-Medications (Allergen,Severity, Reaction): Coded Allergies: Sulfa (Verified Allergy, Severe, Hives, 10/03/16) Reported Meds & Prescriptions Reported Meds & Active Scripts Active Reported Oxycodone (Oxycodone HCl) 5 Mg Cap 5 Mg PO Q6H PRN Vitamin D3 (Cholecalciferol) 5,000 Unit Cap 5,000 Units PO MOWEFR Take 1 capsule daily on Tuesday,Tuesday and Tuesday Centrum Silver (Multiple Vitamins W/ Minerals) 1 Chw Chw 1 Tab PO DAILY Prozac (Fluoxetine HCl) 20 Mg Cap 20 Mg PO DAILY Naproxen Sodium 220 Mg Tab 220 Mg PO BID PRN Aspirin Adult Low Strength (Aspirin) 81 Mg Tabdr 81 Mg PO DAILY Metoprolol Tartrate 50 Mg Tab 50 Mg PO BID Fish Oil (Guys-3 Fatty Acids) 500 Mg Cap 500 Mg PO DAILY Prevacid 24Hr (Lansoprazole) 15 Mg Cap 15 Mg PO DAILY Novolin R Inj (Insulin Human Regular) 1,000 Unit/10 Ml Vial 0 SQ DIRECTED Sliding Scale As Directed. Lantus Inj (Insulin Glargine) 100 Unit/Ml Inj 50 Unit SQ BID Digoxin 0.125 Mg Tab 0.125 Mg PO DAILY Plavix (Clopidogrel Bisulfate) 75 Mg Tab 75 Mg PO HS Cilostazol 100 Mg Tab 100 Mg PO BID Atorvastatin (Atorvastatin Calcium) 40 Mg Tab 40 Mg PO HS Review of Systems Except as stated in HPI: all other systems reviewed are Neg Physical Exam Narrative GENERAL: SKIN: Warm and dry. HEAD: Atraumatic. Normocephalic. EYES: Pupils equal and round. No scleral icterus. No injection or drainage. ENT: No nasal bleeding or discharge. Mucous membranes pink and moist. Tongue is midline. No uvula deviation. NECK: Trachea midline. No JVD. CARDIOVASCULAR: Regular rate and rhythm. No murmurs, S3, S4. RESPIRATORY: No accessory muscle use. Clear to auscultation. Breath sounds equal bilaterally. GASTROINTESTINAL: Abdomen soft, non-tender, nondistended. Hepatic and splenic margins not palpable. MUSCULOSKELETAL: Extremities without clubbing, cyanosis, or edema. No obvious deformities. Full range of motion of the lower extremities. Patient does have a surgical scar on the right foot around the third digit with sutures noted. Patient has erythema and swelling which is blanchable as well as warm to the touch and tender on the dorsal aspect of the right foot as well as the plantar aspect of the foot. Some of the redness appears to be creeping up the leg into the ankle. Patient does have 1+ pulses in the dorsalis pedis. No obvious purulence coming from the wound itself and most of the erythema appears to be on the dorsal aspect of the foot as well as the second and fourth toes. NEUROLOGICAL: Awake and alert. No obvious cranial nerve deficits. Motor grossly within normal limits. Five out of 5 muscle strength in the arms and legs. Normal speech. PSYCHIATRIC: Appropriate mood and affect; insight and judgment normal. Data Data Last Documented VS Vital Signs Date Time Temp Pulse Resp B/P Pulse Ox O2 Delivery O2 Flow Rate FiO2 10/03/16 12:41 98 10/03/16 11:51 98.2 87 16 117/54 Orders Complete Blood Count With Diff (10/03/16 12:09) Basic Metabolic Panel (Bmp) (10/03/16 12:09) Prothrombin Time / Inr (Pt) (10/03/16 12:09) Act Partial Throm Time (Ptt) (10/03/16 12:09) Blood Culture (10/03/16 12:09) Magnesium (Mg) (10/03/16 12:09) Iv Access Insert/Monitor (10/03/16 12:09) Ecg Monitoring (10/03/16 12:09) Oximetry (10/03/16 12:09) Foot, Complete ([id number]) (10/03/16 12:09) Vancomycin Inj (Vancomycin Inj) (10/03/16 12:15) Piperacil-Tazo 2.25 Gm Premix (Zosyn 2.2 (10/03/16 12:15) Lactic Acid (10/03/16 12:31) Hemoglobin (Hgb) A1c (10/03/16 12:45) C-Reactive Protein (Crp) (10/03/16 12:20) Admit To Inpatient (10/03/16 ) Code Status (10/03/16 13:18) Vital Signs (Adult) Q4H (10/03/16 13:18) Activity Oob With Assistance (10/03/16 13:18) Diet 1800 Ada Cons Carb (10/03/16 Lunch) Sodium Chloride 0.9% Flush (Ns Flush) (10/03/16 13:30) Sodium Chloride 0.9% Flush (Ns Flush) (10/03/16 21:00) Acetaminophen (Tylenol) (10/03/16 13:30) Ondansetron Inj (Zofran Inj) (10/03/16 13:30) Basic Metabolic Panel (Bmp) (10/04/16 06:00) Complete Blood Count With Diff (10/04/16 06:00) Chest, Single Ap (10/03/16 13:18) Electrocardiogram (10/03/16 13:18) Pt Request For Service (10/03/16 13:18) Scd Bilateral/Knee High JESSICA.BID (10/03/16 13:18) Naloxone Inj (Narcan Inj) (10/03/16 13:30) Magnesium Hydroxide Liq (Milk Of Magnesi (10/03/16 13:30) Inpatient Certification (10/03/16 ) Insulin Aspart Supplemtl Scale (Novolog (10/03/16 16:00) Vancomycin Inj (Vancomycin Inj) (10/04/16 01:15) Piperacil-Tazo 3.375 Gm Premix (Zosyn 3. (10/03/16 20:00) Atorvastatin (Lipitor) (10/03/16 21:00) Cilostazol (Pletal) (10/03/16 21:00) Clopidogrel (Plavix) (10/03/16 21:00) Digoxin (Lanoxin) (10/04/16 09:00) Fluoxetine (Prozac) (10/04/16 09:00) Metoprolol Tartrate (Lopressor) (10/03/16 21:00) (Nf) Lansoprazole (Prevacid 24hr) (10/04/16 09:00) (Nf) Guys-3 Fatty Acids (Fish Oil) (10/04/16 09:00) Admit Order (Ed Use Only) (10/03/16 13:24) Labs Laboratory Tests Test 10/03/16 12:20 White Blood Count 8.4 TH/MM3 Red Blood Count 4.76 MIL/MM3 Hemoglobin 13.2 GM/DL Hematocrit 37.8 % Mean Corpuscular Volume 79.3 FL Mean Corpuscular Hemoglobin 27.7 PG Mean Corpuscular Hemoglobin 35.0 % Concent Red Cell Distribution Width 14.9 % Platelet Count 148 TH/MM3 Mean Platelet Volume 7.8 FL Neutrophils (%) (Auto) 75.4 % Lymphocytes (%) (Auto) 14.9 % Monocytes (%) (Auto) 7.3 % Eosinophils (%) (Auto) 1.5 % Basophils (%) (Auto) 0.9 % Neutrophils # (Auto) 6.4 TH/MM3 Lymphocytes # (Auto) 1.3 TH/MM3 Monocytes # (Auto) 0.6 TH/MM3 Eosinophils # (Auto) 0.1 TH/MM3 Basophils # (Auto) 0.1 TH/MM3 CBC Comment DIFF FINAL Differential Comment Prothrombin Time 11.2 SEC Prothromb Time International 1.0 RATIO Ratio Activated Partial 28.7 SEC Thromboplast Time Sodium Level 140 MEQ/L Potassium Level 4.1 MEQ/L Chloride Level 102 MEQ/L Carbon Dioxide Level 30.1 MEQ/L Anion Gap 8 MEQ/L Blood Urea Nitrogen 9 MG/DL Creatinine 0.79 MG/DL Estimat Glomerular Filtration 97 ML/MIN Rate Random Glucose 155 MG/DL Calcium Level 9.0 MG/DL Magnesium Level 2.2 MG/DL C-Reactive Protein 11.30 MG/DL MDM Medical Decision Making Medical Screen Exam Complete: Yes Emergency Medical Condition: Yes Medical Record Reviewed: Yes Interpretation(s) CBC & BMP Diagram 10/03/16 12:20 CRP of 11 Last Impressions Foot X-Ray 10/03/16 1209 Signed Impressions: Service Date/Time: Monday, October 03, 2016 13:02 - CONCLUSION: 1. There has been prior near-complete amputation of the third digit. The proximal aspect of the proximal phalanx of the third digit remains. 2. There is soft tissue swelling of the dorsal aspect of the foot. Bebo Katz MD Differential Diagnosis Cellulitis versus postop complication versus osteomyelitis versus sepsis Narrative Course 70-year-old male that presents to the ED for evaluation of right foot infection after surgery. Patient was properly examined and was found to have signs and symptoms consistent appears to be cellulitis after surgery. Patient does have a complicated history secondary to peripheral artery disease, recent surgery, diabetes. I spoke with Dr. Chavez over the phone who was made aware of all findings and recommends admission to medicine and he will come here and personally evaluated the patient for further surgical treatment if needed. He agrees with IV antibiotics. This was discussed with the family and patient were both in agreement with plan. Labs were ordered. X-rays as well as IV antibiotics and fluids were ordered. Labs and imaging showed elevated CRP and left shift but no obvious leukocytosis. [facility] was contacted and Dr. Garcia agrees to admission. Procedures EKG Prior to Arrival: No Diagnosis Primary Impression: Cellulitis Qualified Code: L03.115 - Cellulitis of right lower extremity Additional Impressions: PAD (peripheral artery disease) Diabetes Qualified Code: E11.59 - Type 2 diabetes mellitus with other circulatory complication, with long-term current use of insulin Admitting Information Admitting Physician Requests: Andi Lao October 03, 2016 13:08
--- NOTE | 2016-10-03 13:19 | RADRPT ---
EXAM DATE/TIME: 10/03/2016 13:02 [facility] COMPARISON: No previous studies available for comparison. INDICATIONS : Foot pain, previous infection to right 3rd toe. MEDICAL HISTORY : None. SURGICAL HISTORY : amputation of 3rd left toe. ENCOUNTER: Initial ACUITY: 1 day PAIN SCORE: 0/10 LOCATION: Right foot FINDINGS: 3 views of the right foot demonstrate no fracture or dislocation. Mineralization is within normal mares its. The third digit is absent with the exception of the proximal metaphysis and epiphysis of the pro ximal phalanx. There is mild osteoarthritis at the first metatarsophalangeal joint. Lisfranc joint ap pears intact. There is soft tissue swelling in the dorsal aspect of the foot. Enthesophytes are prese nt at the posterior and plantar aspect of the calcaneus. There is arteriovascular calcification. CONCLUSION: 1. There has been prior near-complete amputation of the third digit. The proximal aspect of the proxi mal phalanx of the third digit remains. 2. There is soft tissue swelling of the dorsal aspect of the foot. Bebo Katz MD on October 03, 2016 at 13:15 Board Certified Radiologist. This report was verified electronically.
[2016-10-03] MEDS ORDERED: ONDANSETRON HCL 4 MG/2 ML VIAL IVP PRN (13:30)
[2016-10-03] MEDS ORDERED: SODIUM CHLORIDE 0.9% FLUSH 10 ML FLUSH IV FLUSH PRN (13:30)
[2016-10-03] MEDS ORDERED: MAGNESIUM HYDROXIDE SUSP 30 ML CUP PO PRN (13:30)
[2016-10-03] MEDS ORDERED: NALOXONE HCL 0.4 MG/ML AMP IV PRN (13:30)
[2016-10-03] MEDS ORDERED: ACETAMINOPHEN 325 MG TAB PO PRN (13:30)
--- NOTE | 2016-10-03 13:35 | RADRPT ---
EXAM DATE/TIME: 10/03/2016 13:31 [facility] COMPARISON: CHEST PA & LAT, August 04, 2016, 9:50. INDICATIONS : Cough MEDICAL HISTORY : Hypertension. Hypercholesterolemia. Hiatal hernia. CAD. Myocardial infarction. PVD. COPD. Diabeti c. SURGICAL HISTORY : CABG. ENCOUNTER: Initial ACUITY: 1 day PAIN SCORE: 0/10 LOCATION: Bilateral chest FINDINGS: Rotated AP view of the chest demonstrates a normal-sized cardiac silhouette in this patient post medi an sternotomy and CABG. There is stable interstitial prominence. No effusion, consolidation, or pneum othorax is visualized. Bones and soft tissues demonstrate no acute finding. CONCLUSION: No acute cardiopulmonary abnormality is identified. Bebo Katz MD on October 03, 2016 at 13:33 Board Certified Radiologist. This report was verified electronically.
[2016-10-03] MEDS ORDERED: OMEPRAZOLE 20 MG CAP PO SCH (14:00)
--- NOTE | 2016-10-03 14:27 | PD.VS.CON ---
History of Present Illness Chief Complaint: R forefoot erythema Consult Requested by: ED History of Present Illness 70 yo male with h/o DM and PAD who underwent R 3rd toe amputation on 09/27 for cellulitis. He was seen in clinic on (09/30) and the amputation site was clean and intact. Over the course of yesterday, he developed erythema and chills. No fevers. No other systemic signs of infection. Presents through ED for evaluation of erythema. Also has + pain R foot that is new over past 24 hours. 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 History none Home Medications Reported Medications Oxycodone 5 Mg Cap5 Mg PO Q6H PRN (PAIN) Ref 0 10/03/16 Cholecalciferol (Vitamin D3)5,000 Unit Cap5,000 Units PO MOWEFR #1 BOTTLE Ref 0 Take 1 capsule daily on Tuesday,Tuesday and Tuesday10/03/16 Multiple Vitamins W/ Minerals (Centrum Silver)1 Chw Chw1 Tab PO DAILY 10/03/16 Fluoxetine (Prozac)20 Mg Cap20 Mg PO DAILY #30 CAP Ref 0 10/03/16 Naproxen Sodium 220 Mg [id number] Mg PO BID PRN (Pain Management) Ref 0 10/03/[address] (Aspirin Adult Low Strength)81 Mg Tabdr81 Mg PO DAILY 10/03/16 Metoprolol Tartrate 50 Mg Tab50 Mg PO BID #60 TAB Ref 0 09/27/16 [place]-3 Fatty Acids (Fish Oil)500 Mg [id number] Mg PO DAILY 09/24/16 Lansoprazole (Prevacid 24Hr)15 Mg Cap15 Mg PO DAILY 09/24/16 Insulin Human Regular Inj (Novolin R Inj)1,000 Unit/10 Ml Vial SQ DIRECTED # 10 ML Ref 0 Sliding Scale As Directed. 09/24/16 Insulin Glargine Inj (Lantus Inj)100 Unit/Ml Inj50 Unit SQ BID 09/24/16 Digoxin 0.125 Mg Tab0.125 Mg PO DAILY #30 TAB Ref 0 09/24/16 Clopidogrel (Plavix)75 Mg Tab75 Mg PO HS #30 TAB Ref 0 09/24/16 Cilostazol 100 Mg Leu831 Mg PO BID Ref 0 09/24/16 Atorvastatin 40 Mg Tab40 Mg PO HS #30 TAB Ref 0 09/24/16 Discontinued Reported Medications Multiple Vitamins W/ Minerals (Centrum Silver)1 Tab1 Tab PO DAILY Ref 0 09/24/16 Fluoxetine 20 Mg Cap20 Mg PO DAILY #30 CAP Ref 0 09/24/16 Naproxen Sodium (Aleve)220 Mg Utc693 Mg PO BID PRN (Pain Management) Ref 0 09/24/16 Aspirin 81 Mg Tabdr81 Mg PO DAILY 09/24/16 Insulin Human Regular Inj (Novolin R Inj)1,000 Unit/10 Ml Vial SQ DIRECTED # 10 ML Ref 0 Sliding Scale As Directed. 09/24/16 Digoxin 0.125 Mg Tab0.5 Tab PO TUESDAY #30 TAB Ref 0 09/24/16 Coded Allergies: Sulfa (Verified Allergy, Severe, Hives, 10/03/16) Review of Systems Constitutional: COMPLAINS OF: Chills Cardiovascular: DENIES: Chest pain Musculoskeletal: COMPLAINS OF: Joint pain Physical Exam Vitals/I&O Date Time Temp Pulse Resp B/P Pulse Ox O2 Delivery O2 Flow Rate FiO2 10/03/16 12:41 98 10/03/16 11:51 98.2 87 16 117/54 98 Neuro: sitting in bed, no distress HEENT: NC/AT; aniecteric sclera Neck: no JVD Heart: reg rate Lungs: nonlabored breathing Abdomen: nontender Extremities: R foot erythematous toes 2 and 4; no drainage Incision intact with nylon sutures - TTP dorsum of foot (new from ) Laboratory Tests Test 10/03/16 10/03/16 12:20 12:55 White Blood Count 8.4 Red Blood Count 4.76 Hemoglobin 13.2 Hematocrit 37.8 Mean Corpuscular Volume 79.3 Mean Corpuscular Hemoglobin 27.7 Mean Corpuscular Hemoglobin 35.0 Concent Red Cell Distribution Width 14.9 Platelet Count 148 Mean Platelet Volume 7.8 Neutrophils (%) (Auto) 75.4 Lymphocytes (%) (Auto) 14.9 Monocytes (%) (Auto) 7.3 Eosinophils (%) (Auto) 1.5 Basophils (%) (Auto) 0.9 Neutrophils # (Auto) 6.4 Lymphocytes # (Auto) 1.3 Monocytes # (Auto) 0.6 Eosinophils # (Auto) 0.1 Basophils # (Auto) 0.1 CBC Comment DIFF FINAL Differential Comment Prothrombin Time 11.2 Prothromb Time International 1.0 Ratio Activated Partial 28.7 Thromboplast Time Sodium Level 140 Potassium Level 4.1 Chloride Level 102 Carbon Dioxide Level 30.1 Anion Gap 8 Blood Urea Nitrogen 9 Creatinine 0.79 Estimat Glomerular Filtration 97 Rate Random Glucose 155 Calcium Level 9.0 Magnesium Level 2.2 C-Reactive Protein 11.30 Lactic Acid Level 1.0 Date/Time Procedure Status Source Growth 10/03/16 12:30 Aerobic Blood Culture Received Blood Peripheral Pending 10/03/16 12:30 Anaerobic Blood Culture Received Blood Peripheral Pending Last 48 hours Impressions Chest X-Ray 10/03/16 1318 Signed Impressions: Service Date/Time: Monday, October 03, 2016 13:31 - CONCLUSION: No acute cardiopulmonary abnormality is identified. Bebo Katz MD Foot X-Ray 10/03/16 1209 Signed Impressions: Service Date/Time: Monday, October 03, 2016 13:02 - CONCLUSION: 1. There has been prior near-complete amputation of the third digit. The proximal aspect of the proximal phalanx of the third digit remains. 2. There is soft tissue swelling of the dorsal aspect of the foot. Bebo Katz MD Assessment and Plan Plan Pt with worsening cellulitis and chills but no fevers and no leukocytosis 1. Admit and place on IV antibiotics (VANC/ZOSYN for polymicrobial diabetic foot infection) 2. I removed the stitches to let wound drain and ok to WBAT; needs W to D BID to foot 3. May require amputation of toes 2 and 4, and I discussed that with the patient ; he understands Toe pressure in clinic was 99, so adequate to heal Abner Chavez MD FACS bureau chief [facility] - Heart and Vascular Surgery at [facility] [phone] Abner Chavez MD October 03, 2016 14:27
--- NOTE | 2016-10-03 14:48 | HHI.HP ---
HPI Service [facility] Hospitalists Primary Care Physician Ismael Gibbons Admission Diagnosis right foot cellulitis after surgery, DM, PVA Chief Complaint: redness at 2nd and 4th toes of right foot Travel History International Travel<30 Days: No Contact w/Intl Traveler <30 Da: No Traveled to Known Affected Are: No History of Present Illness Patient is a 70-year-old male with history of diabetes, paroxysmal atrial fibrillation, and peripheral artery disease. Patient underwent amputation of right third toe on 09/27/[address] Chavez. Patient was seen by Dr. Chavez on at his clinic. At this time amputation site appeared clean and intact. However, patient developed erythema at his right second and fourth toes over the last 48 hours. Patient presented to the ER for evaluation of this new erythema. Patient denies fever or chills. Review of Systems Constitutional: DENIES: Diaphoretic episodes, Fatigue, Fever, Weight gain, Weight loss, Chills, Dizziness, Change in appetite, Night Sweats Endocrine: DENIES: Heat/cold intolerance, Polydipsia, Polyuria, Polyphagia Eyes: DENIES: Blurred vision, Diplopia, Eye inflammation, Eye pain, Vision loss , Photosensitivity, Double Vision Ears, nose, mouth, throat: DENIES: Tinnitus, Hearing loss, Vertigo, Nasal discharge, Oral lesions, Throat pain, Hoarseness, Ear Pain, Running Nose, Epistaxis, Sinus Pain, Toothache, Odynophagia Respiratory: DENIES: Apneas, Cough, Snoring, Wheezing, Hemoptysis, Sputum production, Shortness of breath Cardiovascular: DENIES: Chest pain, Palpitations, Syncope, Dyspnea on Exertion , PND, Lower Extremity Edema, Orthopnea, Claudication Gastrointestinal: DENIES: Abdominal pain, Black stools, Bloody stools, BRB per rectum, Constipation, Diarrhea, GERD, Nausea, Reflux, Vomiting, Difficulty Swallowing, Anorexia Genitourinary: DENIES: Urinary frequency, Urinary incontinence, Urgency, Hematuria, Dysuria, Nocturia Musculoskeletal: DENIES: Joint pain, Muscle aches, Stiffness, Joint Swelling, Back pain, Neck pain Integumentary: DENIES: Abnormal pigmentation, Nail changes, Pruritus, Rash Hematologic/lymphatic: DENIES: Bruising, Lymphadenopathy Immunologic/allergic: DENIES: Eczema, Urticaria Neurologic: DENIES: Abnormal gait, Headache, Localized weakness, Paresthesias, Seizures, Speech Problems, Tremor, Poor Balance Psychiatric: DENIES: Anxiety, Confusion, Mood changes, Depression, Hallucinations, Agitation, Suicidal Ideation, Homicidal Ideation, Delusions, History of Bipolar, History of Schizophrenia Past Family Social History Past Medical History - Diabetes, type II - Peripheral artery disease - Hypertension - Coronary artery disease - Paroxysmal atrial fibrillation Past Surgical History Past Surgical History R groin reconstruction x 2 Toe amp as above CABG Reported Medications Reported Meds & Active Scripts Active Reported Oxycodone (Oxycodone HCl) 5 Mg Cap 5 Mg PO Q6H PRN Vitamin D3 (Cholecalciferol) 5,000 Unit Cap 5,000 Units PO MOWEFR Take 1 capsule daily on Tuesday,Tuesday and Tuesday Centrum Silver (Multiple Vitamins W/ Minerals) 1 Chw Chw 1 Tab PO DAILY Prozac (Fluoxetine HCl) 20 Mg Cap 20 Mg PO DAILY Naproxen Sodium 220 Mg Tab 220 Mg PO BID PRN Aspirin Adult Low Strength (Aspirin) 81 Mg Tabdr 81 Mg PO DAILY Metoprolol Tartrate 50 Mg Tab 50 Mg PO BID Fish Oil ([place]-3 Fatty Acids) 500 Mg Cap 500 Mg PO DAILY Prevacid 24Hr (Lansoprazole) 15 Mg Cap 15 Mg PO DAILY Novolin R Inj (Insulin Human Regular) 1,000 Unit/10 Ml Vial 0 SQ DIRECTED Sliding Scale As Directed. Lantus Inj (Insulin Glargine) 100 Unit/Ml Inj 50 Unit SQ BID Digoxin 0.125 Mg Tab 0.125 Mg PO DAILY Plavix (Clopidogrel Bisulfate) 75 Mg Tab 75 Mg PO HS Cilostazol 100 Mg Tab 100 Mg PO BID Atorvastatin (Atorvastatin Calcium) 40 Mg Tab 40 Mg PO HS Allergies: Coded Allergies: Sulfa (Verified Allergy, Severe, Hives, 10/03/16) Family History Noncontributory Social History - Former smoker - no alcohol use - no illicit street drugs Physical Exam Vital Signs Vital Signs Date Time Temp Pulse Resp B/P Pulse Ox O2 Delivery O2 Flow Rate FiO2 10/03/16 12:41 98 10/03/16 11:51 98.2 87 16 117/54 98 Physical Exam GENERAL: This is a well-nourished, well-developed patient, in no apparent distress. SKIN: No rashes, ecchymoses or lesions. Cool and dry. HEAD: Atraumatic. Normocephalic. No temporal or scalp tenderness. EYES: Pupils equal round and reactive. Extraocular motions intact. No scleral icterus. No injection or drainage. ENT: Nose without bleeding, purulent drainage or septal hematoma. Throat without erythema, tonsillar hypertrophy or exudate. Uvula midline. Airway patent. NECK: Trachea midline. No JVD or lymphadenopathy. Supple, nontender, no meningeal signs. CARDIOVASCULAR: Regular rate and rhythm without murmurs, gallops, or rubs. RESPIRATORY: Clear to auscultation. Breath sounds equal bilaterally. No wheezes , rales, or rhonchi. GASTROINTESTINAL: Abdomen soft, non-tender, nondistended. No hepato-splenomegaly , or palpable masses. No guarding. MUSCULOSKELETAL: Extremities without clubbing, cyanosis, or edema. No joint tenderness, effusion, or edema noted. No calf tenderness. Negative Homans sign bilaterally. NEUROLOGICAL: Awake and alert. Cranial nerves II through XII intact. Motor and sensory grossly within normal limits. Five out of 5 muscle strength in all muscle groups. Normal speech. Laboratory Laboratory Tests Test 10/03/16 10/03/16 12:20 12:55 White Blood Count 8.4 Red Blood Count 4.76 Hemoglobin 13.2 Hematocrit 37.8 Mean Corpuscular Volume 79.3 Mean Corpuscular Hemoglobin 27.7 Mean Corpuscular Hemoglobin 35.0 Concent Red Cell Distribution Width 14.9 Platelet Count 148 Mean Platelet Volume 7.8 Neutrophils (%) (Auto) 75.4 Lymphocytes (%) (Auto) 14.9 Monocytes (%) (Auto) 7.3 Eosinophils (%) (Auto) 1.5 Basophils (%) (Auto) 0.9 Neutrophils # (Auto) 6.4 Lymphocytes # (Auto) 1.3 Monocytes # (Auto) 0.6 Eosinophils # (Auto) 0.1 Basophils # (Auto) 0.1 CBC Comment DIFF FINAL Differential Comment Prothrombin Time 11.2 Prothromb Time International 1.0 Ratio Activated Partial 28.7 Thromboplast Time Sodium Level 140 Potassium Level 4.1 Chloride Level 102 Carbon Dioxide Level 30.1 Anion Gap 8 Blood Urea Nitrogen 9 Creatinine 0.79 Estimat Glomerular Filtration 97 Rate Random Glucose 155 Calcium Level 9.0 Magnesium Level 2.2 C-Reactive Protein 11.30 Lactic Acid Level 1.0 Date/Time Procedure Status Source Growth 10/03/16 12:30 Aerobic Blood Culture Received Blood Peripheral Pending 10/03/16 12:30 Anaerobic Blood Culture Received Blood Peripheral Pending Result Diagram: 10/03/16 1220 10/03/16 1220 Imaging Last Impressions Chest X-Ray 10/03/16 1318 Signed Impressions: Service Date/Time: Monday, October 03, 2016 13:31 - CONCLUSION: No acute cardiopulmonary abnormality is identified. Bebo Katz MD Foot X-Ray 10/03/16 1209 Signed Impressions: Service Date/Time: Monday, October 03, 2016 13:02 - CONCLUSION: 1. There has been prior near-complete amputation of the third digit. The proximal aspect of the proximal phalanx of the third digit remains. 2. There is soft tissue swelling of the dorsal aspect of the foot. Bebo Katz MD Septic Shock Reassessment Heart: Regular rate and rhythm Lungs: Clear Skin: Warm Peripheral Pulses: Bounding Right Radial Bounding Left Radial Bounding Right Popliteal Bounding Left Popliteal Bounding Right Dorsalis Pedis Bounding Left Dorsalis Pedis Bounding Right Posterior Tibial Bounding Left Posterior Tibial Capillary Refill: Brisk Assessment and Plan Problem List: (1) Cellulitis Status: Acute Plan: - Second and fourth digits of right foot - Recent amputation of third digit of right foot with , 09/27/16 - Continue vancomycin and Zosyn - comgmt with Dr. Chavez - Patient is at high risk of requiring subsequent amputation of right second and fourth toes - Observe clinical response to antibiotic treatment - Oxycodone when necessary pain - Supportive care - DVT prophylaxis (2) CAD (coronary artery disease) Status: Acute Plan: - Continue aspirin, metoprolol, Plavix, Lipitor (3) PAD (peripheral artery disease) Status: Chronic Plan: - Aspirin, Plavix, Pletal - See above (4) Diabetes Status: Chronic Plan: - SSI (5) Paroxysmal atrial fibrillation Status: Acute Plan: - Aspirin, Plavix - Continue metoprolol and digoxin Physician Certification 2 Midnight Certification Type: Admission for Inpatient Services Order for Inpatient Services The services are ordered in accordance with Medicare regulations or non- Medicare payer requirements, as applicable. In the case of services not specified as inpatient-only, they are appropriately provided as inpatient services in accordance with the 2-midnight benchmark. Estimated LOS (days): 3 3 days is the estimated time the patient will need to remain in the hospital, assuming treatment plan goals are met and no additional complications. Post-Hospital Plan: Not yet determined Problem Qualifiers (1) Cellulitis: Qualified Code: L03.115 - Cellulitis of right lower extremity (2) CAD (coronary artery disease): Qualified Code: I25.10 - Coronary artery disease involving [place] heart without angina pectoris, unspecified vessel or lesion type (3) Diabetes: Qualified Code: E11.59 - Type 2 diabetes mellitus with other circulatory complication, with long-term current use of insulin Gumaro Garcia DO October 03, 2016 14:48
[2016-10-03] MEDS: INSULIN ASPART SUPPLEMENTAL SCALE SQ SCH ×2 (16:00→20:14)
--- NOTE | 2016-10-03 17:08 | EKG ---
Date Performed: 10/03/2016 Time Performed: 13:38:54 PTAGE: 70 years EKG: ATRIAL FIBRILLATION SEPTAL MYOCARDIAL INFARCTION ABNORMAL ECG COMPARED TO PRIOR ELECTROCARD IOGRAM, Atrial fibrillation has replaced atrial flutter. PREVIOUS TRACING : 07/18/2015 07.47 DOCTOR: Italo Mann Interpretating Date/Time 10/03/2016 17:06:33
[2016-10-03] MEDS: SODIUM CHLORIDE 0.9% FLUSH 10 ML FLUSH IV FLUSH SCH (20:27)
[2016-10-03] MEDS: CILOSTAZOL 100 MG TAB PO SCH (20:27)
[2016-10-03] MEDS: CLOPIDOGREL 75 MG TAB PO SCH (20:27)
[2016-10-03] MEDS: METOPROLOL TARTRATE 50 MG TAB PO SCH (20:27)
[2016-10-03] MEDS: PIPERACIL-TAZO 3.375 GM PREMIX 50 ML IV SCH (20:27)
[2016-10-03] MEDS: ATORVASTATIN 40 MG TAB PO SCH (20:27)
[2016-10-04] MEDS: VANCOMYCIN INJ 1,000 MG in SODIUM CHLOR 0.9% 250 ML INJ 250 ML IV SCH ×2 (01:15→13:22)
[2016-10-04] MEDS: PIPERACIL-TAZO 3.375 GM PREMIX 50 ML IV SCH ×4 (03:19→20:21)
[2016-10-04 03:40] VITALS: BP 122/67; PULSE 101; RESP 18; TEMP 97.7; O2SAT 94
[2016-10-04] MEDS: INSULIN ASPART SUPPLEMENTAL SCALE SQ SCH ×4 (06:06→21:39)
[2016-10-04 08:00] VITALS: BP 106/61; PULSE 82; RESP 20; TEMP 97.5; O2SAT 97
--- NOTE | 2016-10-04 08:05 | PD.PN.STU ---
Subjective Remarks Pt reports pain well controlled - 1/10 on pain scale minimal improvement in appearance of R 2nd toe tender to touch reports erythema on distal right leg is due to initial ODETTE bandage able to ambulate denies fever/chills, SOB, CP, n/v Objective Vitals GENERAL: well developed, appears stated age, alert/awake/oriented x3, does not appear to be in acute distress SKIN: Warm and dry. HEAD: Atraumatic. Normocephalic. EYES: Pupils equal and round. No scleral icterus. No injection or drainage. ENT: No nasal bleeding or discharge. Mucous membranes pink and moist. Tongue is midline. No uvula deviation. NECK: Trachea midline. No JVD. CARDIOVASCULAR: Regular rate and rhythm. No murmurs, S3, S4. RESPIRATORY: No accessory muscle use. Clear to auscultation. Breath sounds equal bilaterally. GASTROINTESTINAL: Abdomen soft, non-tender, nondistended. Hepatic and splenic margins not palpable. MUSCULOSKELETAL: Third digit missing from R foot due to amputation. Sutures have been removed and left open. Some of the redness appears to be creeping up the leg into the ankle. Patient does have 1+ pulses in the dorsalis pedis. No obvious purulence coming from the wound itself. Erythema on the dorsal aspect of the foot as well as the second and fourth toes. Petechiae on right lower leg. NEUROLOGICAL: Awake and alert. No obvious cranial nerve deficits. Motor grossly within normal limits. Five out of 5 muscle strength in the arms and legs. Normal speech. PSYCHIATRIC: Appropriate mood and affect; insight and judgment normal. Vital Signs Date Time Temp Pulse Resp B/P Pulse Ox O2 Delivery O2 Flow Rate FiO2 10/04/16 03:40 97.7 101 18 122/67 94 10/03/16 23:10 98.3 86 18 103/60 95 10/03/16 20:30 97.8 72 20 120/59 98 10/03/16 20:00 91 10/03/16 20:00 Room Air 10/03/16 16:44 Room Air 10/03/16 16:00 97.7 82 20 171/88 95 10/03/16 15:34 78 20 132/78 98 10/03/16 12:41 98 10/03/16 11:51 98.2 87 16 117/54 98 I/O 5/10/03/16 10/03/16 10/04/16 10/04/16 10/04/16 07:00 15:00 23:00 07:00 15:00 23:00 Intake Total 450 ml 621 ml Output Total 900 ml Balance -450 ml 621 ml Intake Oral 400 ml 360 ml IV Total 50 ml 261 ml Output Urine Total 900 ml # Voids 1 4 Result Diagram: 10/03/16 1220 10/03/16 1220 A/P Assessment and Plan (1) Cellulitis Status: Acute Plan: - Second and fourth digits of right foot - Recent amputation of third digit of right foot with , 09/27/16 - comgmt with Dr. Chavez - Patient is at high risk of requiring subsequent amputation of right second and fourth toes - Observe clinical response to antibiotic treatment - Oxycodone when necessary pain - Supportive care - DVT prophylaxis - 10/04 Minimal improvement in appearance of R 2nd toe. Continue vancomycin and Zosyn. Surgery will assess 10/05 if amputation necessary. (2) CAD (coronary artery disease) Status: Acute Plan: - Continue aspirin, metoprolol, Plavix, Lipitor (3) PAD (peripheral artery disease) Status: Chronic Plan: - Aspirin, Plavix, Pletal - See above (4) Diabetes Status: Chronic Plan: - SSI (5) Paroxysmal atrial fibrillation Status: Acute Plan: - Aspirin, Plavix - Continue metoprolol and digoxin Gopi Aparicio October 04, 2016 08:05
--- NOTE | 2016-10-04 08:24 | PD.VS.PN ---
Subjective Subjective/Hospital Course Pt with continued pain in R foot but no fevers Objective Vitals/I&O Date Time Temp Pulse Resp B/P Pulse Ox O2 Delivery O2 Flow Rate FiO2 10/04/16 03:40 97.7 101 18 122/67 94 10/03/16 23:10 98.3 86 18 103/60 95 10/03/16 20:30 97.8 72 20 120/59 98 10/03/16 20:00 91 10/03/16 20:00 Room Air 10/03/16 16:44 Room Air 10/03/16 16:00 97.7 82 20 171/88 95 10/03/16 15:34 78 20 132/78 98 10/03/16 12:41 98 10/03/16 11:51 98.2 87 16 117/54 98 Physical Exam R foot with 4th toe dusky and erythematous at base 3rd toe amputation site ok; no odor, + serous drainage 2nd toe with petechiae proximally and petechia in forefoot Laboratory Laboratory Tests Test 10/03/16 10/03/16 12:20 12:55 White Blood Count 8.4 Red Blood Count 4.76 Hemoglobin 13.2 Hematocrit 37.8 Mean Corpuscular Volume 79.3 Mean Corpuscular Hemoglobin 27.7 Mean Corpuscular Hemoglobin 35.0 Concent Red Cell Distribution Width 14.9 Platelet Count 148 Mean Platelet Volume 7.8 Neutrophils (%) (Auto) 75.4 Lymphocytes (%) (Auto) 14.9 Monocytes (%) (Auto) 7.3 Eosinophils (%) (Auto) 1.5 Basophils (%) (Auto) 0.9 Neutrophils # (Auto) 6.4 Lymphocytes # (Auto) 1.3 Monocytes # (Auto) 0.6 Eosinophils # (Auto) 0.1 Basophils # (Auto) 0.1 CBC Comment DIFF FINAL Differential Comment Prothrombin Time 11.2 Prothromb Time International 1.0 Ratio Activated Partial 28.7 Thromboplast Time Sodium Level 140 Potassium Level 4.1 Chloride Level 102 Carbon Dioxide Level 30.1 Anion Gap 8 Blood Urea Nitrogen 9 Creatinine 0.79 Estimat Glomerular Filtration 97 Rate Random Glucose 155 Calcium Level 9.0 Magnesium Level 2.2 C-Reactive Protein 11.30 Lactic Acid Level 1.0 Date/Time Procedure Status Source Growth 10/03/16 12:30 Aerobic Blood Culture Received Blood Peripheral Pending 10/03/16 12:30 Anaerobic Blood Culture Received Blood Peripheral Pending Imaging Last 48 hours Impressions Chest X-Ray 10/03/16 1318 Signed Impressions: Service Date/Time: Monday, October 03, 2016 13:31 - CONCLUSION: No acute cardiopulmonary abnormality is identified. Bebo Katz MD Foot X-Ray 10/03/16 1209 Signed Impressions: Service Date/Time: Monday, October 03, 2016 13:02 - CONCLUSION: 1. There has been prior near-complete amputation of the third digit. The proximal aspect of the proximal phalanx of the third digit remains. 2. There is soft tissue swelling of the dorsal aspect of the foot. Bebo Katz MD Assessment and Plan Plan Pt with worsening cellulitis and chills but no fevers and no leukocytosis 1.On IV antibiotics (VANC/ZOSYN for polymicrobial diabetic foot infection) 2. WBAT to R foot 3. May need amputation of toes 2 and 4 - discussed with patient and his at bedside this morning. 4. NPO after MN Abner Chavez MD FACS tooth cutter spur [facility] - Heart and Vascular Surgery at [facility] [phone] Abner Chavez MD October 04, 2016 08:24
[2016-10-04] MEDS ORDERED: FATTY ACIDS PO SCH (09:00)
[2016-10-04] MEDS ORDERED: OMEGA PO SCH (09:00)
[2016-10-04] MEDS: CILOSTAZOL 100 MG TAB PO SCH ×2 (09:30→20:29)
[2016-10-04] MEDS: FLUoxetine HCL 20 MG CAP PO SCH (09:30)
[2016-10-04] MEDS: METOPROLOL TARTRATE 50 MG TAB PO SCH ×2 (09:30→20:29)
[2016-10-04] MEDS: PANTOPRAZOLE SOD 20 MG DELAYED RELEASE TAB PO SCH (09:30)
[2016-10-04] MEDS: DIGOXIN 0.125 MG TAB PO SCH (09:31)
[2016-10-04] MEDS: SODIUM CHLORIDE 0.9% FLUSH 10 ML FLUSH IV FLUSH SCH ×2 (09:31→20:30)
[2016-10-04 09:48] VITALS: PULSE 98
--- NOTE | 2016-10-04 09:59 | HHI.PR ---
Subjective Remarks spread of redness to toe number 2 and 4, dorsum of foot. Objective Vitals heart reg lung cta abd s/nt ext right foot dorsum with redness/petechia amptuation 3rd toe with redness/tenderness toe 2 and 4 Vital Signs Date Time Temp Pulse Resp B/P Pulse Ox O2 Delivery O2 Flow Rate FiO2 10/04/16 08:00 97.5 82 20 106/61 97 10/04/16 03:40 97.7 101 18 122/67 94 10/03/16 23:10 98.3 86 18 103/60 95 10/03/16 20:30 97.8 72 20 120/59 98 10/03/16 20:00 91 10/03/16 20:00 Room Air 10/03/16 16:44 Room Air 10/03/16 16:00 97.7 82 20 171/88 95 10/03/16 15:34 78 20 132/78 98 10/03/16 12:41 98 10/03/16 11:51 98.2 87 16 117/54 98 10/03/16 10/03/16 10/04/16 15:00 23:00 07:00 Intake Total 450 ml 621 ml Output Total 900 ml Balance -450 ml 621 ml Intake Oral 400 ml 360 ml IV Total 50 ml 261 ml Output Urine Total 900 ml # Voids 1 4 Result Diagram: 10/03/16 1220 10/03/16 1220 Imaging Last Impressions Chest X-Ray 10/03/16 1318 Signed Impressions: Service Date/Time: Monday, October 03, 2016 13:31 - CONCLUSION: No acute cardiopulmonary abnormality is identified. Bebo Katz MD Foot X-Ray 10/03/16 1209 Signed Impressions: Service Date/Time: Monday, October 03, 2016 13:02 - CONCLUSION: 1. There has been prior near-complete amputation of the third digit. The proximal aspect of the proximal phalanx of the third digit remains. 2. There is soft tissue swelling of the dorsal aspect of the foot. eBbo Katz MD A/P Problem List: (1) Cellulitis Status: Acute Plan: - Second and fourth digits of right foot. dorsum of foot ..presumed cellulitis..?ischemic process. ?[employer]. no hx vasculitis/ctd - Recent amputation of third digit of right foot with , 09/27/16 - Continue vancomycin and Zosyn - possible amputations pending for tomorrow.. (2) CAD (coronary artery disease) Status: Acute Plan: - Continue aspirin, metoprolol, Plavix, Lipitor (3) PAD (peripheral artery disease) Status: Chronic Plan: - Aspirin, Plavix, Pletal - See above (4) Diabetes Status: Chronic Plan: - SSI (5) Paroxysmal atrial fibrillation Status: Acute Plan: - Aspirin, Plavix - Continue metoprolol and digoxin Problem Qualifiers (1) Cellulitis: Qualified Code: L03.115 - Cellulitis of right lower extremity (2) CAD (coronary artery disease): Qualified Code: I25.10 - Coronary artery disease involving [place] heart without angina pectoris, unspecified vessel or lesion type (3) Diabetes: Qualified Code: E11.59 - Type 2 diabetes mellitus with other circulatory complication, with long-term current use of insulin Fish Fernandez MD October 04, 2016 09:58
[2016-10-04] MEDS: NYSTATIN 100,000 U/GM OINT 15 GM TUBE TOPICAL SCH ×2 (10:27→16:57)
[2016-10-04 12:00] VITALS: BP 97/57; PULSE 85; RESP 20; TEMP 97.7; O2SAT 93
[2016-10-04 12:05] LABS: AUTOMATED NEUTROPHIL # 5.1 TH/MM3 (1.8-7.7); BASOPHIL % 0.7 % (0.0-2.0); EOSINOPHIL # 0.1 TH/MM3 (0-0.4); EOSINOPHIL % 2.1 % (0.0-4.0); HEMATOCRIT 38.2 % (39.0-51.0); HEMO FLAGS DIFF FINAL; LYMPH % 11.9 % (9.0-44.0); LYMPHOCYTE # 0.8 TH/MM3 (1.0-4.8); MEAN CELL VOLUME 80.2 FL (80.0-100.0); MEAN CORPUSCULAR HEMOGLOBIN 26.4 PG (27.0-34.0); MEAN CORPUSCULAR HGB CONC 32.8 % (32.0-36.0); NEUT % 78.3 % (16.0-70.0); PLATELET COUNT 145 TH/MM3 (150-450); RED BLOOD COUNT 4.76 MIL/MM3 (4.50-5.90); RED CELL DISTRIBUTION WIDTH 14.7 % (11.6-17.2); WHITE BLOOD COUNT 6.5 TH/MM3 (4.0-11.0)
[2016-10-04 12:26] LABS: BICARBONATE 31.5 MEQ/L (21.0-32.0); POTASSIUM 3.5 MEQ/L (3.5-5.1)
[2016-10-04 12:41] LABS: DIGOXIN 1.2 NG/ML (0.8-2.0)
[2016-10-04 16:00] VITALS: BP 112/62; PULSE 86; RESP 20; TEMP 97.9; O2SAT 96
[2016-10-04 20:00] VITALS: BP 163/90; PULSE 86; RESP 16; TEMP 98.4; O2SAT 96
[2016-10-04] MEDS: CLOPIDOGREL 75 MG TAB PO SCH (20:29)
[2016-10-04] MEDS: ATORVASTATIN 40 MG TAB PO SCH (20:30)
[2016-10-05] VITALS (8 sets, daily range): BP systolic 103–146; BP diastolic 56–74; PULSE 88–98; RESP 18–20; TEMP 97.4–98.3; O2SAT 96–98
[2016-10-05] MEDS: VANCOMYCIN INJ 1,000 MG in SODIUM CHLOR 0.9% 250 ML INJ 250 ML IV SCH ×2 (01:07→13:24)
[2016-10-05] MEDS: NYSTATIN 100,000 U/GM OINT 15 GM TUBE TOPICAL SCH ×3 (02:00→17:15)
[2016-10-05] MEDS: PIPERACIL-TAZO 3.375 GM PREMIX 50 ML IV SCH ×4 (02:37→20:48)
[2016-10-05] MEDS: INSULIN ASPART SUPPLEMENTAL SCALE SQ SCH ×4 (06:04→20:47)
--- NOTE | 2016-10-05 06:56 | PD.VS.PN ---
Subjective Subjective/Hospital Course Pt with continued pain in R foot but no fevers No chills, WBC normal Objective Vitals/I&O Date Time Temp Pulse Resp B/P Pulse Ox O2 Delivery O2 Flow Rate FiO2 10/05/16 04:00 97.7 88 18 103/56 98 10/05/16 00:00 98.0 88 18 112/58 97 10/04/16 21:00 Room Air 10/04/16 20:00 98.4 86 16 163/90 96 10/04/16 16:00 97.9 86 20 112/62 96 10/04/16 12:00 97.7 85 20 97/57 93 10/04/16 09:48 98 10/04/16 09:48 Room Air 10/04/16 08:00 97.5 82 20 106/61 97 10/05/16 10/05/16 10/05/16 07:00 15:00 23:00 Intake Total 0 ml Output Total 650 ml Balance -650 ml Physical Exam R 4th toe sl better, 2nd toe better Dorsum erythema improved serous drainage only from foot Laboratory Laboratory Tests Test 10/04/16 11:15 White Blood Count 6.5 Red Blood Count 4.76 Hemoglobin 12.5 Hematocrit 38.2 Mean Corpuscular Volume 80.2 Mean Corpuscular Hemoglobin 26.4 Mean Corpuscular Hemoglobin 32.8 Concent Red Cell Distribution Width 14.7 Platelet Count 145 Mean Platelet Volume 7.6 Neutrophils (%) (Auto) 78.3 Lymphocytes (%) (Auto) 11.9 Monocytes (%) (Auto) 7.0 Eosinophils (%) (Auto) 2.1 Basophils (%) (Auto) 0.7 Neutrophils # (Auto) 5.1 Lymphocytes # (Auto) 0.8 Monocytes # (Auto) 0.5 Eosinophils # (Auto) 0.1 Basophils # (Auto) 0.0 CBC Comment DIFF FINAL Differential Comment Sodium Level 142 Potassium Level 3.5 Chloride Level 102 Carbon Dioxide Level 31.5 Anion Gap 9 Blood Urea Nitrogen 9 Creatinine 0.71 Estimat Glomerular Filtration 109 Rate Random Glucose 134 Calcium Level 8.7 Digoxin Level 1.2 Date/Time Procedure Status Source Growth 10/03/16 12:30 Aerobic Blood Culture - Preliminary Resulted Blood Peripheral NO GROWTH IN 1 DAY 10/03/16 12:30 Anaerobic Blood Culture - Preliminary Resulted Blood Peripheral NO GROWTH IN 1 DAY Imaging Last 48 hours Impressions Chest X-Ray 10/03/16 1318 Signed Impressions: Service Date/Time: Monday, October 03, 2016 13:31 - CONCLUSION: No acute cardiopulmonary abnormality is identified. Bebo Katz MD Foot X-Ray 10/03/16 1209 Signed Impressions: Service Date/Time: Monday, October 03, 2016 13:02 - CONCLUSION: 1. There has been prior near-complete amputation of the third digit. The proximal aspect of the proximal phalanx of the third digit remains. 2. There is soft tissue swelling of the dorsal aspect of the foot. Bebo Katz MD Assessment and Plan Plan Pt with stable cellulitis and no fevers or leukocytosis 1.On IV antibiotics (VANC/ZOSYN for polymicrobial diabetic foot infection) 2. WBAT to R foot 3. May need amputation of toes 2 and 4 - discussed with patient again this morning but would like to try antibiotics for another day or two. 4. diabetic diet 5. NC CT foot to eval for undrained fluid collection Abner Chavez MD FACS library science professor [facility] - Heart and Vascular Surgery at [facility] [phone] Abner Chavez MD October 05, 2016 06:56
[2016-10-05] MEDS ORDERED: Vancomycin Consult Pharmacy 1 EA OTHER SCH (07:15)
[2016-10-05 07:57] LABS: BICARBONATE 29.8 MEQ/L (21.0-32.0); POTASSIUM 3.6 MEQ/L (3.5-5.1)
[2016-10-05 08:07] LABS: HEMOGLOBIN A1a 1.1 %; HEMOGLOBIN A1b 1.9 %; HEMOGLOBIN Ao 82.8 %; HEMOGLOBIN LA1C 1.8 %; HEMOGLOBIN P3 3.8 %
[2016-10-05] MEDS: PANTOPRAZOLE SOD 20 MG DELAYED RELEASE TAB PO SCH (08:10)
[2016-10-05] MEDS: DIGOXIN 0.125 MG TAB PO SCH (08:10)
[2016-10-05] MEDS: FLUoxetine HCL 20 MG CAP PO SCH (08:10)
[2016-10-05] MEDS: CILOSTAZOL 100 MG TAB PO SCH ×2 (08:10→20:45)
[2016-10-05] MEDS: SODIUM CHLORIDE 0.9% FLUSH 10 ML FLUSH IV FLUSH SCH ×2 (08:11→20:48)
[2016-10-05] MEDS: METOPROLOL TARTRATE 50 MG TAB PO SCH ×2 (08:11→20:45)
--- NOTE | 2016-10-05 08:14 | PD.PN.STU ---
Subjective Remarks some improvement in R 2nd toe R 4th toe and dorsum of foot remain erythematous pain controlled at rest with medication tenderness with movement/palpation as per he has been confused since night -reports he "saw bodies on the floor in the hallway of the hospital and was wondering why they didn't have beds for them" -has been agitated more easily -wanted to go grocery shopping at 2:30am fungal infection of the penis improving Objective Vitals GENERAL: well developed, appears stated age, alert/awake/oriented x3, does not appear to be in acute distress SKIN: Warm and dry. HEAD: Atraumatic. Normocephalic. EYES: Pupils equal and round. No scleral icterus. No injection or drainage. ENT: No nasal bleeding or discharge. Mucous membranes pink and moist. Tongue is midline. No uvula deviation. NECK: Trachea midline. No JVD. CARDIOVASCULAR: Regular rate and rhythm. No murmurs, S3, S4. RESPIRATORY: No accessory muscle use. Clear to auscultation. Breath sounds equal bilaterally. GASTROINTESTINAL: Abdomen soft, non-tender, nondistended. Hepatic and splenic margins not palpable. MUSCULOSKELETAL: Third digit missing from R foot due to amputation. Sutures have been removed and left open. Some of the redness appears to be creeping up the leg into the ankle. Patient does have 1+ pulses in the dorsalis pedis. No obvious purulence coming from the wound itself. Erythema on the dorsal aspect of the foot as well as the second and fourth toes. Petechiae on right lower leg. NEUROLOGICAL: Awake and alert. No obvious cranial nerve deficits. Motor grossly within normal limits. Five out of 5 muscle strength in the arms and legs. Normal speech. PSYCHIATRIC: Appropriate mood and affect; seems somewhat confused. Vital Signs Date Time Temp Pulse Resp B/P Pulse Ox O2 Delivery O2 Flow Rate FiO2 10/05/16 04:00 97.7 88 18 103/56 98 10/05/16 00:00 98.0 88 18 112/58 97 10/04/16 21:00 Room Air 10/04/16 20:00 98.4 86 16 163/90 96 10/04/16 16:00 97.9 86 20 112/62 96 10/04/16 12:00 97.7 85 20 97/57 93 10/04/16 09:48 98 10/04/16 09:48 Room Air I/O 10/04/16 10/04/16 10/04/16 10/05/16 10/05/16 10/05/16 07:00 15:00 23:00 07:00 15:00 23:00 Intake Total 621 ml 0 ml 0 ml Output Total 500 ml 650 ml Balance 621 ml -500 ml -650 ml Intake Oral 360 ml 0 ml 0 ml IV Total 261 ml Output Urine Total 500 ml 650 ml # Voids 4 3 # Bowel Movements 2 0 Result Diagram: 10/04/16 1115 10/05/16 0626 A/P Assessment and Plan (1) Cellulitis Status: Acute Plan: - Second and fourth digits of right foot - Recent amputation of third digit of right foot with , 09/27/16 - comgmt with Dr. Chavez - Patient is at high risk of requiring subsequent amputation of right second and fourth toes - Observe clinical response to antibiotic treatment - Oxycodone when necessary pain - Supportive care - DVT prophylaxis - 10/04 Minimal improvement in appearance of R 2nd toe. Continue vancomycin and Zosyn. Surgery will assess 10/05 if amputation necessary. - 10/05 Minimal improvement in appearance of R 2nd toe. Continue abx. CT scan of foot today to assess for fluid collection (2) Confusion/Agitation Status: Acute Plan: - MRI of brain (3) CAD (coronary artery disease) Status: Acute Plan: - Continue aspirin, metoprolol, Plavix, Lipitor (4) PAD (peripheral artery disease) Status: Chronic Plan: - Aspirin, Plavix, Pletal - See above (5) Diabetes Status: Chronic Plan: - SSI (6) Paroxysmal atrial fibrillation Status: Acute Plan: - Aspirin, Plavix - Continue metoprolol and digoxin (7) Fungal infection of penis Status: Acute Plan: - Improved with Nystatin Gopi Aparicio October 05, 2016 08:14
--- NOTE | 2016-10-05 10:12 | RADRPT ---
EXAM DATE/TIME: 10/05/2016 09:13 [facility] COMPARISON: CTA RUNOFF W 3D RECON, August 04, 2016, 9:32. FOOT RIGHT COMPLETE ([id number]), October 03, 2016, 13:02. INDICATIONS : Rule out Abscess. RADIATION DOSE: 7.29 CTDIvol (mGy) MEDICAL HISTORY : Diabetes mellitus type 2. Hypertension. Cardiovascular disease SURGICAL HISTORY : ENCOUNTER: Subsequent ACUITY: 3 days PAIN SCALE: 2/10 LOCATION: Right TECHNIQUE: Volumetric scanning of the foot was performed. Using automated exposure control and adjustment of th e mA and/or kV according to patient size, radiation dose was kept as low as reasonably achievable to obtain optimal diagnostic quality images. FINDINGS: Patient is recent status post a near-complete amputation of the third toe. The base of the third prox imal phalanx remains. There is soft tissue swelling in the region of the dictation. There is a few ti ny droplets of air. There is a questionable erosion involving the remaining base of the third proxima l phalanx. No definite focal fluid collection is seen. There are some primary degenerative changes at the first metatarsophalangeal joint. There some mild degenerative changes of the metatarsal bones. N o bony fracture is demonstrated. CONCLUSION: 1. Status post recent near-complete amputation of the third toe. 2. There is a questionable erosion involving the residual base of the third proximal phalanx. This co uld be postsurgical versus infection. There is surrounding soft tissue swelling and a couple droplets of air in this location. 3. No loculated fluid collection is seen in the soft tissues to indicate a soft tissue abscess at thi s time. Thai Nuñez MD on October 05, 2016 at 10:03 Board Certified Radiologist. This report was verified electronically.
--- NOTE | 2016-10-05 10:22 | HHI.PR ---
Subjective Remarks no new complaints Objective Vitals heart reg lung cta abd s/nt ext right third toe amputation with swelling/bluish/red toe number 2 and 4 with petechial rash on dorsal foot. Vital Signs Date Time Temp Pulse Resp B/P Pulse Ox O2 Delivery O2 Flow Rate FiO2 10/05/16 08:00 97.4 97 18 118/74 96 Automatic Cuff 10/05/16 04:00 97.7 88 18 103/56 98 10/05/16 00:00 98.0 88 18 112/58 97 10/04/16 21:00 Room Air 10/04/16 20:00 98.4 86 16 163/90 96 10/04/16 16:00 97.9 86 20 112/62 96 10/04/16 12:00 97.7 85 20 97/57 93 10/04/16 10/04/16 10/05/16 15:00 23:00 07:00 Intake Total 0 ml 0 ml Output Total 500 ml 650 ml Balance -500 ml -650 ml Intake Oral 0 ml 0 ml Output Urine Total 500 ml 650 ml # Voids 3 # Bowel Movements 2 0 Result Diagram: 10/04/16 1115 10/05/16 0626 Imaging Last Impressions Chest X-Ray 10/03/16 1318 Signed Impressions: Service Date/Time: Monday, October 03, 2016 13:31 - CONCLUSION: No acute cardiopulmonary abnormality is identified. Bebo Katz MD Foot X-Ray 10/03/16 1209 Signed Impressions: Service Date/Time: Monday, October 03, 2016 13:02 - CONCLUSION: 1. There has been prior near-complete amputation of the third digit. The proximal aspect of the proximal phalanx of the third digit remains. 2. There is soft tissue swelling of the dorsal aspect of the foot. Bebo Katz MD A/P Problem List: (1) Cellulitis Status: Acute Plan: - Second and fourth digits of right foot. dorsum of foot ..presumed cellulitis..?ischemic process. 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 no hx vasculitis/ctd - Recent amputation of third digit of right foot with , 09/27/16 - Continue vancomycin and Zosyn - possible amputations pending per vascular...?underlying osteo. (2) CAD (coronary artery disease) Status: Acute Plan: - Continue aspirin, metoprolol, Plavix, Lipitor (3) PAD (peripheral artery disease) Status: Chronic Plan: - Aspirin, Plavix, Pletal - See above (4) Diabetes Status: Chronic Plan: - SSI (5) Paroxysmal atrial fibrillation Status: Acute Plan: - Aspirin, Plavix - Continue metoprolol and digoxin Problem Qualifiers (1) Cellulitis: Qualified Code: L03.115 - Cellulitis of right lower extremity (2) CAD (coronary artery disease): Qualified Code: I25.10 - Coronary artery disease involving [place] heart without angina pectoris, unspecified vessel or lesion type (3) Diabetes: Qualified Code: E11.59 - Type 2 diabetes mellitus with other circulatory complication, with long-term current use of insulin Fish Fernandez MD October 05, 2016 10:22
[2016-10-05] MEDS ORDERED: PHARMACY ORDERED LAB ONE (12:45)
[2016-10-05] MEDS: ATORVASTATIN 40 MG TAB PO SCH (20:45)
[2016-10-05] MEDS: CLOPIDOGREL 75 MG TAB PO SCH (20:46)
[2016-10-06] VITALS (9 sets, daily range): BP systolic 106–149; BP diastolic 51–90; PULSE 70–106; RESP 16–18; TEMP 97.5–98.3; O2SAT 94–96
[2016-10-06] MEDS: VANCOMYCIN INJ 1,500 MG in SODIUM CHLORID 0.9% 500 ML INJ 500 ML IV SCH ×2 (00:13→12:43)
[2016-10-06] MEDS: NYSTATIN 100,000 U/GM OINT 15 GM TUBE TOPICAL SCH ×3 (02:00→18:00)
[2016-10-06] MEDS: PIPERACIL-TAZO 3.375 GM PREMIX 50 ML IV SCH ×4 (02:00→22:11)
[2016-10-06] MEDS: INSULIN ASPART SUPPLEMENTAL SCALE SQ SCH ×4 (06:19→21:00)
--- NOTE | 2016-10-06 07:19 | PD.VS.PN ---
Subjective Subjective/Hospital Course Pain in R foot better. Ambulated yesterday Is tired of bed alarm but otherwise in good spirits CT yesterday showed no abscess or fluid collection Objective Vitals/I&O Date Time Temp Pulse Resp B/P Pulse Ox O2 Delivery O2 Flow Rate FiO2 10/06/16 04:00 97.7 95 18 108/51 96 10/06/16 00:00 97.8 93 18 106/52 96 10/05/16 20:15 98 10/05/16 20:00 Room Air 10/05/16 20:00 98.3 91 20 130/70 97 10/05/16 16:00 97.6 96 18 146/70 97 10/05/16 12:00 97.6 92 18 140/72 98 10/05/16 08:19 Room Air 10/05/16 08:19 90 10/05/16 08:00 97.4 97 18 118/74 96 Automatic Cuff 10/06/16 10/06/16 10/06/16 07:00 15:00 23:00 Intake Total 559 ml Output Total 200 ml Balance 359 ml Physical Exam R dorsum of foot erythema stable, toe cellulitis is better much less TTP Laboratory Laboratory Tests Test 10/05/16 13:20 Vitamin B12 Level 999 Thyroid Stimulating Hormone 1.590 3rd Gen Vancomycin Level Trough 8.6 Date/Time Procedure Status Source Growth 10/03/16 12:30 Aerobic Blood Culture - Preliminary Resulted Blood Peripheral NO GROWTH IN 2 DAYS 10/03/16 12:30 Anaerobic Blood Culture - Preliminary Resulted Blood Peripheral NO GROWTH IN 2 DAYS Imaging Last 48 hours Impressions Lower Extremity CT 10/05/16 0000 Signed Impressions: Service Date/Time: Wednesday, October 05, 2016 09:13 - CONCLUSION: 1. Status post recent near-complete amputation of the third toe. 2. There is a questionable erosion involving the residual base of the third proximal phalanx. This could be postsurgical versus infection. There is surrounding soft tissue swelling and a couple droplets of air in this location. 3. No loculated fluid collection is seen in the soft tissues to indicate a soft tissue abscess at this time. Thai Nuñez MD Assessment and Plan Plan Pt with improved cellulitis and no fevers or leukocytosis; pain improved 1.On IV antibiotics (VANC/ZOSYN for polymicrobial diabetic foot infection) - would continue 2. WBAT to R foot 3. May need amputation of toes 2 and 4 but looking better now 4. diabetic diet 5. Discussed with his recent "sundowning" - may be infectious but I doubt it given response to antibiotics and no leukocytosis or fevers Abner Chavez MD FACS filter press supervisor [facility] - Heart and Vascular Surgery at [facility] [phone] Abner Chavez MD October 06, 2016 07:19
[2016-10-06] MEDS: CILOSTAZOL 100 MG TAB PO SCH ×2 (09:55→22:08)
[2016-10-06] MEDS: METOPROLOL TARTRATE 50 MG TAB PO SCH ×2 (09:55→22:08)
[2016-10-06] MEDS: FLUoxetine HCL 20 MG CAP PO SCH (09:55)
[2016-10-06] MEDS: SODIUM CHLORIDE 0.9% FLUSH 10 ML FLUSH IV FLUSH SCH ×2 (09:56→22:08)
[2016-10-06] MEDS: DIGOXIN 0.125 MG TAB PO SCH (09:56)
[2016-10-06] MEDS: PANTOPRAZOLE SOD 20 MG DELAYED RELEASE TAB PO SCH (09:56)
[2016-10-06] MEDS: INSULIN DETEMIR 100 UNITS/ML VIAL SQ SCH ×2 (09:59→22:10)
--- NOTE | 2016-10-06 19:39 | HHI.PR ---
Subjective Remarks says he gets more confused at night. says since May more forgetful, agitates easily, misplaces things and gets suspicious and paranoid. worsened over past week since dealing with the infection. Objective Vitals joking heart reg lung cta abd s/nt ext right dorsal foot petechial rash improved. 3rd toe amputated and 2nd and 4rth toe less bluish/purple wrapped. Vital Signs Date Time Temp Pulse Resp B/P Pulse Ox O2 Delivery O2 Flow Rate FiO2 10/06/16 16:00 97.6 83 18 143/79 96 10/06/16 12:00 97.5 90 18 142/90 94 10/06/16 11:00 20 10/06/16 08:13 99 10/06/16 08:00 Room Air 10/06/16 08:00 97.7 106 18 130/72 96 10/06/16 04:00 97.7 95 18 108/51 96 10/06/16 00:00 97.8 93 18 106/52 96 10/05/16 20:15 98 10/05/16 20:00 Room Air 10/05/16 20:00 98.3 91 20 130/70 97 10/05/16 10/05/16 10/06/16 15:00 23:00 07:00 Intake Total 590 ml 50 ml 559 ml Output Total 325 ml 700 ml 200 ml Balance 265 ml -650 ml 359 ml Intake Oral 240 ml 0 ml 0 ml IV Total 350 ml 50 ml 559 ml Output Urine Total 325 ml 700 ml 200 ml # Voids 1 # Bowel Movements 0 0 0 Result Diagram: 10/04/16 1115 10/05/16 0626 Imaging Last Impressions Chest X-Ray 10/03/16 1318 Signed Impressions: Service Date/Time: Monday, October 03, 2016 13:31 - CONCLUSION: No acute cardiopulmonary abnormality is identified. Bebo Katz MD Foot X-Ray 10/03/16 1209 Signed Impressions: Service Date/Time: Monday, October 03, 2016 13:02 - CONCLUSION: 1. There has been prior near-complete amputation of the third digit. The proximal aspect of the proximal phalanx of the third digit remains. 2. There is soft tissue swelling of the dorsal aspect of the foot. Bebo Katz MD A/P Problem List: (1) Cellulitis Status: Acute Plan: - Second and fourth digits of right foot. dorsum of foot ..presumed cellulitis..?ischemic process. no hx vasculitis/ctd - Recent amputation of third digit of right foot with , 09/27/16 - Continue vancomycin and Zosyn - possible amputations pending per vascular... Long talk with pt and about mental status. it appears that pt has had changes over past 6months to include more forgetfulness, agitates easily, paranoid and misplaces things. worsened recently with the infection. It sounds like pt has been developing dementia perhaps worsened by the recent acute illnesss and now the hospitalization(sundowns.) so far no obvious metabolic reason or drug. will get mri/a brain to exclude embolic stroke changes from his afib. has been off coumadin. (2) CAD (coronary artery disease) Status: Acute Plan: - Continue aspirin, metoprolol, Plavix, Lipitor (3) PAD (peripheral artery disease) Status: Chronic Plan: - Aspirin, Plavix, Pletal - See above (4) Diabetes Status: Chronic Plan: - SSI (5) Paroxysmal atrial fibrillation Status: Acute Plan: - Aspirin, Plavix - Continue metoprolol and digoxin Problem Qualifiers (1) Cellulitis: Qualified Code: L03.115 - Cellulitis of right lower extremity (2) CAD (coronary artery disease): Qualified Code: I25.10 - Coronary artery disease involving [place] heart without angina pectoris, unspecified vessel or lesion type (3) Diabetes: Qualified Code: E11.59 - Type 2 diabetes mellitus with other circulatory complication, with long-term current use of insulin Fish Fernandez MD October 06, 2016 19:39
--- NOTE | 2016-10-06 20:56 | RADRPT ---
EXAM DATE/TIME: 10/06/2016 20:44 [facility] COMPARISON: No previous studies available for comparison. INDICATIONS : Pre-MRI orbits. MEDICAL HISTORY : None. SURGICAL HISTORY : None. ENCOUNTER: Initial ACUITY: 1 day PAIN SCORE: 0/10 LOCATION: Orbits FINDINGS: Limited examination of the orbits was performed. There is no evidence of fracture involving the bony structures surrounding the orbits. The maxillary sinuses appear to be well aerated. No radiopaque foreign bodies are seen in the soft tissues. CONCLUSION: Unremarkable limited examination of the orbits. Yosi Mars Jr., MD on October 06, 2016 at 20:53 Board Certified Radiologist. This report was verified electronically.
[2016-10-06] MEDS: ATORVASTATIN 40 MG TAB PO SCH (22:08)
[2016-10-06] MEDS: CLOPIDOGREL 75 MG TAB PO SCH (22:09)
--- NOTE | 2016-10-06 22:18 | RADRPT ---
EXAM DATE/TIME: 10/06/2016 21:24 [facility] COMPARISON: No previous studies available for comparison. INDICATIONS : Altered mental status. MEDICAL HISTORY : Diabetes mellitus type 1. Hypertension. SURGICAL HISTORY : CABG Colon resection. Metatarsal removal, Femoral bypas bilateral legs. ENCOUNTER: Initial ACUITY: 1 day PAIN SCORE: 4/10 LOCATION: Bilateral cranial TECHNIQUE: Multiplanar, multisequence MRI of the brain was performed without contrast. FINDINGS: CEREBRUM: Atrophy. The ventricles are normal for age. No evidence of midline shift, mass lesion, hemorrhage or acute infarction. No extraaxial fluid collections are seen. The pituitary gland and suprasellar ci mcdonald are normal in configuration. WHITE MATTER: Multiple small foci of high flair signal involving the periventricular white matter of both cerebral hemispheres. POSTERIOR FOSSA: The cerebellum and brainstem are intact. The 4th ventricle is midline. The cerebellopontine angle is unremarkable. The cerebellar tonsils are normal in position. DIFFUSION IMAGING: No focal areas of restricted diffusion are seen. No evidence of acute infarction. EXTRACRANIAL: The visualized portions of the orbits and paranasal sinuses are unremarkable. CONCLUSION: 1. No acute intracranial abnormality. 2. Atrophy. 3. Chronic small vessel ischemic change. Yosi Mars Jr., MD on October 06, 2016 at 22:15 Board Certified Radiologist. This report was verified electronically.
--- NOTE | 2016-10-06 22:26 | RADRPT ---
EXAM DATE/TIME: 10/06/2016 21:24 [facility] COMPARISON: No previous studies available for comparison. INDICATIONS : Altered mental status. MEDICAL HISTORY : Diabetes mellitus type 2. Hypertension. SURGICAL HISTORY : CABG Colon resection. Metatarsal removed, Femoral bypass bilateral legs. ENCOUNTER: Initial ACUITY: 1 day PAIN SCORE: 6/10 LOCATION: Bilateral cranial Please note a normal MRA of the brain does not entirely exclude the possibility of a small aneurysm, nor the possibility of distal intracranial vessel disease. TECHNIQUE: 3D time of flight MRA was performed. Source images, multiplanar STS MIP, and 3D volume MIP reconstru ctions were reviewed. FINDINGS: There is excellent visualization of the major intracranial arteries out to the second-order branch ve ssels. There is variant anatomy with persistent circulation bilaterally. The left vertebral art liam is dominant. There is no evidence for aneurysm, vessel truncation or stenosis, and no evidence f or vascular malformation. CONCLUSION: Variant anatomy. Otherwise, unremarkable exam. Yosi Mars Jr., MD on October 06, 2016 at 22:22 Board Certified Radiologist. This report was verified electronically.
[2016-10-07] VITALS (7 sets, daily range): BP systolic 102–163; BP diastolic 60–78; PULSE 70–121; RESP 16–20; TEMP 97.3–98.3; O2SAT 94–98
[2016-10-07] MEDS: VANCOMYCIN INJ 1,500 MG in SODIUM CHLORID 0.9% 500 ML INJ 500 ML IV SCH ×2 (00:34→14:08)
[2016-10-07] MEDS: NYSTATIN 100,000 U/GM OINT 15 GM TUBE TOPICAL SCH ×3 (02:00→16:24)
[2016-10-07] MEDS: PIPERACIL-TAZO 3.375 GM PREMIX 50 ML IV SCH ×4 (02:12→20:49)
[2016-10-07] MEDS: INSULIN ASPART SUPPLEMENTAL SCALE SQ SCH ×4 (06:25→20:52)
[2016-10-07] MEDS: FLUoxetine HCL 20 MG CAP PO SCH (08:45)
[2016-10-07] MEDS: METOPROLOL TARTRATE 50 MG TAB PO SCH ×2 (08:45→20:48)
[2016-10-07] MEDS: DIGOXIN 0.125 MG TAB PO SCH (08:45)
[2016-10-07] MEDS: CILOSTAZOL 100 MG TAB PO SCH ×2 (08:46→20:48)
[2016-10-07] MEDS: PANTOPRAZOLE SOD 20 MG DELAYED RELEASE TAB PO SCH (08:46)
[2016-10-07] MEDS: SODIUM CHLORIDE 0.9% FLUSH 10 ML FLUSH IV FLUSH SCH ×2 (08:51→20:50)
[2016-10-07] MEDS: INSULIN DETEMIR 100 UNITS/ML VIAL SQ SCH ×2 (09:00→20:51)
--- NOTE | 2016-10-07 11:49 | PD.VS.PN ---
Subjective Subjective/Hospital Course Pain in right foot has improved. Patient optimistic about color of foot. Objective Vitals/I&O Date Time Temp Pulse Resp B/P Pulse Ox O2 Delivery O2 Flow Rate FiO2 10/07/16 08:20 Room Air 10/07/16 08:00 97.3 103 20 114/64 95 10/07/16 05:00 97.7 92 16 147/60 94 10/06/16 23:55 98.3 70 16 110/86 95 10/06/16 20:30 97.7 91 16 149/73 96 10/06/16 20:00 Room Air 10/06/16 20:00 96 10/06/16 16:00 97.6 83 18 143/79 96 10/06/16 12:00 97.5 90 18 142/90 94 10/07/16 10/07/16 10/07/16 07:00 15:00 23:00 Intake Total 840 ml Output Total 1400 ml Balance -560 ml Physical Exam right 3rd amp stump is clean. No erythema surrounding toes 2 and 4. Laboratory Laboratory Tests Test 10/07/16 05:57 Creatinine 0.80 Estimat Glomerular Filtration 95 Rate Date/Time Procedure Status Source Growth 10/03/16 12:30 Aerobic Blood Culture - Preliminary Resulted Blood Peripheral NO GROWTH IN 4 DAYS 10/03/16 12:30 Anaerobic Blood Culture - Preliminary Resulted Blood Peripheral NO GROWTH IN 4 DAYS Imaging Last 48 hours Impressions Orbit X-Ray 10/06/16 0000 Signed Impressions: Service Date/Time: Thursday, October 06, 2016 20:44 - CONCLUSION: Unremarkable limited examination of the orbits. Yosi Mars Jr., MD Head Magnetic Resonance Angiography 10/06/16 0000 Signed Impressions: Service Date/Time: Thursday, October 06, 2016 21:24 - CONCLUSION: Variant anatomy. Otherwise, unremarkable exam. Yosi Mars Jr., MD Brain MRI 10/06/16 0000 Signed Impressions: Service Date/Time: Thursday, October 06, 2016 21:24 - CONCLUSION: 1. No acute intracranial abnormality. 2. Atrophy. 3. Chronic small vessel ischemic change. Yosi Mars Jr., MD Assessment and Plan Plan Cellulitis of right foot is improved. definitely 2,4 toes without erythema. Will continue to follow progress. Can ambulate (WBAT) and continue IV antibiotics (zosyn and vancomycin). Bertin Paula DO, FACS [employer] Preassembler of Vascular Surgery MIRIAM/Betrin Donaldson DO Oct 07, 2016 11:49
[2016-10-07] MEDS ORDERED: PHARMACY ORDERED LAB ONE (12:45)
--- NOTE | 2016-10-07 20:27 | HHI.PR ---
Subjective Remarks sundowns and hallucinates. Objective Vitals heart reg lung cta abd s/nt ext right 3rd toe amp. 2nd/4rth toes improved color with bluish/purple resolved. redness better. Vital Signs Date Time Temp Pulse Resp B/P Pulse Ox O2 Delivery O2 Flow Rate FiO2 10/07/16 16:00 97.4 102 20 102/78 96 10/07/16 12:00 97.6 96 20 146/70 96 10/07/16 12:00 99 10/07/16 08:20 Room Air 10/07/16 08:00 97.3 103 20 114/64 95 10/07/16 08:00 121 10/07/16 05:00 97.7 92 16 147/60 94 10/06/16 23:55 98.3 70 16 110/86 95 10/06/16 20:30 97.7 91 16 149/73 96 10/06/16 10/06/16 10/07/16 15:00 23:00 07:00 Intake Total 360 ml 770 ml 840 ml Output Total 725 ml 800 ml 1400 ml Balance -365 ml -30 ml -560 ml Intake Oral 360 ml 720 ml 240 ml IV Total 50 ml 600 ml Output Urine Total 725 ml 800 ml 1400 ml # Bowel Movements 0 0 0 Result Diagram: 10/04/16 1115 10/07/16 0557 Imaging Last Impressions Chest X-Ray 10/03/16 1318 Signed Impressions: Service Date/Time: Monday, October 03, 2016 13:31 - CONCLUSION: No acute cardiopulmonary abnormality is identified. Bebo Katz MD Foot X-Ray 10/03/16 1209 Signed Impressions: Service Date/Time: Monday, October 03, 2016 13:02 - CONCLUSION: 1. There has been prior near-complete amputation of the third digit. The proximal aspect of the proximal phalanx of the third digit remains. 2. There is soft tissue swelling of the dorsal aspect of the foot. Bebo Katz MD A/P Problem List: (1) Cellulitis Status: Acute Plan: - Second and fourth digits of right foot. dorsum of foot ..presumed cellulitis..?ischemic process. no hx vasculitis/ctd - Recent amputation of third digit of right foot with , 09/27/16 - Continue vancomycin and Zosyn - overall improved and no amputations now Long talk with pt and about mental status. it appears that pt has had changes over past 6months to include more forgetfulness, agitates easily, paranoid and misplaces things. worsened recently with the infection. It sounds like pt has been developing dementia perhaps worsened by the recent acute illnesss and now the hospitalization(s.) so far no obvious metabolic reason or drug. MRI/A negative for cva. will ask psych eval to give opinion on mental status changes/hallucinations... and treatment recommendations. (2) CAD (coronary artery disease) Status: Acute Plan: - Continue aspirin, metoprolol, Plavix, Lipitor (3) PAD (peripheral artery disease) Status: Chronic Plan: - Aspirin, Plavix, Pletal - See above (4) Diabetes Status: Chronic Plan: - SSI (5) Paroxysmal atrial fibrillation Status: Acute Plan: - Aspirin, Plavix - Continue metoprolol and digoxin Problem Qualifiers (1) Cellulitis: Qualified Code: L03.115 - Cellulitis of right lower extremity (2) CAD (coronary artery disease): Qualified Code: I25.10 - Coronary artery disease involving [place] heart without angina pectoris, unspecified vessel or lesion type (3) Diabetes: Qualified Code: E11.59 - Type 2 diabetes mellitus with other circulatory complication, with long-term current use of insulin Fish Fernandez MD Oct 07, 2016 20:27
[2016-10-07] MEDS: ATORVASTATIN 40 MG TAB PO SCH (20:46)
[2016-10-07] MEDS: CLOPIDOGREL 75 MG TAB PO SCH (20:47)
[2016-10-08] MEDS: PIPERACIL-TAZO 3.375 GM PREMIX 50 ML IV SCH ×4 (02:28→21:05)
[2016-10-08] MEDS: VANCOMYCIN INJ 1,250 MG in SODIUM CHLOR 0.9% 250 ML INJ 250 ML IV SCH ×2 (02:28→12:23)
[2016-10-08] MEDS: NYSTATIN 100,000 U/GM OINT 15 GM TUBE TOPICAL SCH ×3 (03:13→17:37)
[2016-10-08 03:43] LABS: AMPHETAMINE, URINE NEG (NEG); BARBITURATES, URINE NEG (NEG); COCAINE, URINE NEG (NEG)
[2016-10-08 04:35] VITALS: BP 112/57; PULSE 86; RESP 16; TEMP 97.9; O2SAT 96
--- NOTE | 2016-10-08 05:45 | MB ---
cc: ALEX ALEXANDRE M.D. DATE OF CONSULTATION 10/07/2016 HISTORY OF PRESENT ILLNESS This 70-year-old white male with multiple medical issues was admitted because of "right foot cellulitis after surgery, redness second and fourth toe of the right foot". Psychiatric consultation is requested by Dr. Fernandez for evaluation and assistance in the management of "dementia with hallucinations". In reviewing the records it was learned that he has underwent amputation of right third toe on 09/27/[address] Chavez. He developed erythema of his right second and fourth toes over the 48 hours preceding this hospitalization. SIGNIFICANT LAB WORKUP CBC with differential is essentially unremarkable. Serum electrolytes normal. Vitamin B12 levels normal. TSH normal. Serum digoxin 1.2. Vancomycin trough 8.6. IMAGING STUDIES MRI of the brain shows cortical atrophy, no acute process. MRA of the brain unremarkable for aneurysm. Orbit x-ray unremarkable. Lower extremity CT also unremarkable. Chest x-ray unremarkable. X-ray right foot shows complete amputation of the third digit. The proximal phalanx of the third digit remains and there is soft tissue swelling of the dorsal aspect of the foot. CURRENT MEDICATIONS 1. Vancomycin. 2. Levemir. 3. Mycostatin ointment. 4. Digoxin. 5. Prozac 20 mg daily. 6. Protonix. 7. Lipitor. 8. Pletal. 9. Plavix. The case was also reviewed with the nursing staff. It was reported that at night he "hallucinates"; during the daytime he is pleasant and cooperative. 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 At the time of this evaluation Mr. Rojo was pleasant and cooperative. Because of his hearing impairment, questions had to be repeated to him. He seemed aware that he was in the hospital and was able to provide a clear account of the circumstances leading to this hospitalization, "I have diabetes. They amputated the middle toe of my right foot. The toe before and after became blue but now they gave me antibiotics and it is getting better." He stated he has been depressed off and on for the past 10 years and has been on Prozac. He, however, described more in the form that he was "stressed and irritable." He stated that he has had difficulty controlling his temper in the past but since being on Prozac he has been able to control it better. He mentioned he has also been experiencing initial insomnia off and on. Over the past few months. His appetite had declined and he lost about 20 pounds. He also seemed quite aware of gradual decline in his memory. He indicated he noticed decline in his memory over the past 2 years, more so recently. He also mentioned that he would experience visual hallucinations off and on, mostly at night. He described a recent episode where he believed that there was a man and a woman with guns in their hands. However, he also pointed to a immigration lawyer which actually is on the wall in the dictation area believing that it was a man and a woman. He denied active suicidal thoughts but acknowledged experiencing fleeting thoughts in the past. He denied any intent or plan. He denied any previous suicide attempts. He also denied any history of violence. On further direct questioning he did not give any history suggestive of bipolar affective disorder. He denied current with alcohol or drug abuse. However, acknowledged drinking heavily in his younger years. Further exploration revealed that he has been experiencing a few psychosocial stressors, mostly related to finances. He has been for 45 years. He denied any significant conflicts in his marriage. PAST PSYCHIATRIC HISTORY He denied any previous psychiatric intervention. PAST MEDICAL HISTORY As mentioned, he has history of - 1. Diabetes mellitus. 2. Peripheral artery disease. 3. Hypertension. 4. Coronary artery disease. 5. Paroxysmal atrial fibrillation. PAST SURGICAL HISTORY 1. He is status post coronary artery bypass graft. 2. Recent amputation of third toe right foot. FAMILY HISTORY His parents are . He has one sister. He denied any family history of psychiatric illness or substance abuse. PERSONAL AND SOCIAL HISTORY He grew up in [place] and dropped out of school in ninth grade. He started working for the [employer] at the age of 16. He seemed to take a great deal of pride in his ability to be a productive member of his family. He has been twice. His first marriage ended in divorce after 3 years. He has a son from this marriage who lives in [place]. He has been to his current for 45 years and had a daughter from this marriage who lives in this area. As mentioned, he has history of alcohol abuse in his younger years but currently drinks about "12 beers per year." He denied any illicit substance abuse. He denied any history of physical or sexual trauma. He denied any history of involvement with the law. Specifically, he denied ever being charged with DUI. CLINICAL OBSERVATION AND MENTAL STATUS EXAMINATION At the time of this evaluation, Mr. Rojo presented as a reasonably well-groomed white male who looked his stated age. He was pleasant, polite and cooperative with this interviewer and volunteered information spontaneously. His response to questions at times were over-elaborate and as such direct questions had to be asked to elicit specific information from him. No bizarre behavioral or mannerisms were noticed. His speech was coherent and appropriate. His affect was appropriate, somewhat blunted. Subjectively he described his mood as, "I have been irritable, stressed." Thought processes did not reveal any looseness of association or flight of ideas. No isaac delusions were noticed or reported. However, as described, he has been experiencing visual hallucinations mostly at night. During this evaluation he did not exhibit any behavior indicative of him experiencing auditory hallucinations or visual hallucinations. He denied any suicidal or homicidal ideations or intent at this time. He denied any previous suicide attempts. COGNITIVE FUNCTIONS: He was alert, oriented to time, place, person and situation. He gave the date as "October 07." MEMORY: Immediate - He could do 5 digits forward, 3 digits backward. Recent - He could recall 1 out of 3 objects after 10 minutes. Remote - He could, recall presidents up to President Obama only. ATTENTION AND CONCENTRATION was impaired. He could do serial sevens up to 93 only. His fund of knowledge was adequate. For example he knew the capital of the [facility] as "[place]", the capital of [place] "[place]." He could correctly interpret proverbs. JUDGMENT AND INSIGHT was felt to be fair. DIAGNOSTIC IMPRESSION 1. Major depressive disorder, moderate, recurrent. 2. Dementia with psychosis. 3. Diabetes mellitus. 4. Peripheral artery disease. 5. Hypertension. 6. Coronary artery disease. 7. Paroxysmal atrial fibrillation. 8. Status post amputation of right third toe. 9. Status post coronary artery bypass graft. FORMULATION AND RECOMMENDATIONS Based on this evaluation and the background information available to me at this time, Mr. Rojo is experiencing a moderate degree of depression as manifested by persistent feeling of irritability and neurovegetative symptoms. His depression is compounded by various psychosocial stressors, i.e. financial difficulties, chronic medical issues. To alleviate his depression he needs to continue on the Prozac but the dose needs to be increased. In addition he is also exhibiting a mild to moderate degree of cognitive impairment which seems to have progressed over the past 2 years. Most of the dementia workup here was already done but for the sake of completeness, I will check his urine drug screen and sed rate, BRIAN and RPR. A small dose of Haldol in the evening would certainly help reduce the visual hallucinations/agitation and I have taken the liberty of ordering this. Thank you, Dr. Fernandez, for allowing me to participate in the care of Mr. Rojo. I will be out of town for the rest of the week and if further input is needed, the psychiatrist agricultural production engineer would be available. Upon discharge he needs to follow up with a psychiatrist at [facility]. MD ROSA MARIA Shea/AHSAN /8:31 PM /5:12 AM
[2016-10-08] MEDS: INSULIN ASPART SUPPLEMENTAL SCALE SQ SCH ×4 (06:22→21:11)
[2016-10-08 08:00] VITALS: BP 130/80; PULSE 87; RESP 22; TEMP 98; O2SAT 96
[2016-10-08] MEDS: METOPROLOL TARTRATE 50 MG TAB PO SCH ×2 (09:25→21:06)
[2016-10-08] MEDS: DIGOXIN 0.125 MG TAB PO SCH (09:25)
[2016-10-08] MEDS: CILOSTAZOL 100 MG TAB PO SCH ×2 (09:25→21:06)
[2016-10-08] MEDS: FLUoxetine HCL 10 MG CAP PO SCH (09:25)
[2016-10-08] MEDS: SODIUM CHLORIDE 0.9% FLUSH 10 ML FLUSH IV FLUSH SCH ×2 (09:26→21:05)
[2016-10-08] MEDS: PANTOPRAZOLE SOD 20 MG DELAYED RELEASE TAB PO SCH (09:26)
[2016-10-08] MEDS: INSULIN DETEMIR 100 UNITS/ML VIAL SQ SCH ×2 (09:33→21:10)
--- NOTE | 2016-10-08 09:38 | HHI.PR ---
Subjective Remarks hallucinates more at night. present Objective Vitals pleasant. cooperative heart reg lung cta abd s/nt ext right 3rd toe amputation with bloody discharge from wound base and surrounding wound edge with necrotic/black tissue. tender over plantar/metartarsal area. discoloration of toe 2 and 4 better. Vital Signs Date Time Temp Pulse Resp B/P Pulse Ox O2 Delivery O2 Flow Rate FiO2 10/08/16 08:10 Room Air 10/08/16 08:00 98.0 87 22 130/80 96 10/08/16 04:35 97.9 86 16 112/57 96 10/08/16 04:00 Room Air 10/08/16 00:00 Room Air 10/07/16 23:43 98.3 70 16 110/70 95 10/07/16 20:30 97.7 82 16 163/76 98 10/07/16 20:00 Room Air 10/07/16 20:00 99 10/07/16 16:00 97.4 102 20 102/78 96 10/07/16 12:00 97.6 96 20 146/70 96 10/07/16 12:00 99 10/07/16 10/07/16 10/08/16 15:00 23:00 07:00 Intake Total 240 ml 340 ml 450 ml Output Total 400 ml 450 ml 500 ml Balance -160 ml -110 ml -50 ml Intake Oral 240 ml 240 ml 0 ml IV Total 100 ml 450 ml Output Urine Total 400 ml 450 ml 500 ml # Bowel Movements 1 0 0 Result Diagram: 10/04/16 1115 10/07/16 0557 Imaging Last Impressions Chest X-Ray 10/03/16 1318 Signed Impressions: Service Date/Time: Monday, October 03, 2016 13:31 - CONCLUSION: No acute cardiopulmonary abnormality is identified. Bebo Katz MD Foot X-Ray 10/03/16 1209 Signed Impressions: Service Date/Time: Monday, October 03, 2016 13:02 - CONCLUSION: 1. There has been prior near-complete amputation of the third digit. The proximal aspect of the proximal phalanx of the third digit remains. 2. There is soft tissue swelling of the dorsal aspect of the foot. Bebo Katz MD A/P Problem List: (1) Cellulitis Status: Acute Plan: - Second and fourth digits of right foot. dorsum of foot ..presumed cellulitis..?ischemic process. no hx vasculitis/ctd - Recent amputation of third digit of right foot with , 09/27/16 - Continue vancomycin and Zosyn - overall improved and no amputations now -?debridement of wound site of toe amputation. Long talk with pt and about mental status. it appears that pt has had changes over past 6months to include more forgetfulness, agitates easily, paranoid and misplaces things. worsened recently with the infection. I think patient has dementia. psych consult agrees and also thinks he is experiencing some depression. pscyhosis sx's with visual hallucinations. started on haldol. ssri increased. observe sx's -no obvious metabolic reason or drug. MRI/A negative for cva. (2) CAD (coronary artery disease) Status: Acute Plan: - Continue aspirin, metoprolol, Plavix, Lipitor (3) PAD (peripheral artery disease) Status: Chronic Plan: - Aspirin, Plavix, Pletal - See above (4) Diabetes Status: Chronic Plan: - SSI (5) Paroxysmal atrial fibrillation Status: Acute Plan: - Aspirin, Plavix - Continue metoprolol and digoxin Problem Qualifiers (1) Cellulitis: Qualified Code: L03.115 - Cellulitis of right lower extremity (2) CAD (coronary artery disease): Qualified Code: I25.10 - Coronary artery disease involving [place] heart without angina pectoris, unspecified vessel or lesion type (3) Diabetes: Qualified Code: E11.59 - Type 2 diabetes mellitus with other circulatory complication, with long-term current use of insulin Fish Fernandez MD Oct 08, 2016 09:38
[2016-10-08 10:48] LABS: RAPID PLASMA REAGIN SCREEN NON-REACTIVE (NON-REACTVE)
--- NOTE | 2016-10-08 10:57 | PD.VS.PN ---
Subjective Subjective/Hospital Course Pain in right foot has improved. Objective Vitals/I&O Date Time Temp Pulse Resp B/P Pulse Ox O2 Delivery O2 Flow Rate FiO2 10/08/16 08:10 Room Air 10/08/16 08:00 98.0 87 22 130/80 96 10/08/16 04:35 97.9 86 16 112/57 96 10/08/16 04:00 Room Air 10/08/16 00:00 Room Air 10/07/16 23:43 98.3 70 16 110/70 95 10/07/16 20:30 97.7 82 16 163/76 98 10/07/16 20:00 Room Air 10/07/16 20:00 99 10/07/16 16:00 97.4 102 20 102/78 96 10/07/16 12:00 97.6 96 20 146/70 96 10/07/16 12:00 99 10/08/16 10/08/16 10/08/16 07:00 15:00 23:00 Intake Total 450 ml Output Total 500 ml Balance -50 ml Physical Exam right 3 rd toe with granulation tissue at base. erythema is more proximal forefoot and decreased since yesterday. NO odor Laboratory Laboratory Tests Test 10/07/16 10/08/16 10/08/16 12:10 02:30 06:35 Vancomycin Level Trough 16.6 Urine Opiates Screen NEG Urine Barbiturates Screen NEG Urine Amphetamines Screen NEG Urine Benzodiazepines Screen NEG Urine Cocaine Screen NEG Urine Cannabinoids Screen NEG Erythrocyte Sedimentation Rate 43 Rapid Plasma Reagin NON-REACTIVE Date/Time Procedure Status Source Growth 10/03/16 12:30 Aerobic Blood Culture - Preliminary Resulted Blood Peripheral NO GROWTH IN 4 DAYS 10/03/16 12:30 Anaerobic Blood Culture - Preliminary Resulted Blood Peripheral NO GROWTH IN 4 DAYS Assessment and Plan Plan Cellulitis of right foot is improved. definitely 2,4 toes without erythema. Will continue to follow progress. Can ambulate (WBAT) and continue IV antibiotics (zosyn and vancomycin). Bertin Paula DO, FACS Geochemist of Vascular Surgery MIRIAM/Bertin Donaldson DO Oct 08, 2016 10:57
[2016-10-08 12:00] VITALS: BP 164/74; PULSE 90; RESP 22; TEMP 97.3; O2SAT 98
[2016-10-08 13:38] LABS: ANA SCREEN NEG (NEG)
[2016-10-08 16:00] VITALS: BP 148/78; PULSE 82; RESP 20; TEMP 97.1; O2SAT 97
[2016-10-08] MEDS: HALOPERIDOL 0.5 MG TAB PO SCH (17:32)
[2016-10-08 19:55] VITALS: BP 129/59; PULSE 84; RESP 16; TEMP 97.6; O2SAT 97
[2016-10-08] MEDS: ATORVASTATIN 40 MG TAB PO SCH (21:05)
[2016-10-08] MEDS: CLOPIDOGREL 75 MG TAB PO SCH (21:06)
[2016-10-08 23:15] VITALS: BP 137/58; PULSE 81; RESP 16; TEMP 98.3; O2SAT 97
[2016-10-09] MEDS: NYSTATIN 100,000 U/GM OINT 15 GM TUBE TOPICAL SCH ×3 (02:00→18:41)
[2016-10-09] MEDS: PIPERACIL-TAZO 3.375 GM PREMIX 50 ML IV SCH ×4 (02:56→20:56)
[2016-10-09] MEDS: VANCOMYCIN INJ 1,250 MG in SODIUM CHLOR 0.9% 250 ML INJ 250 ML IV SCH ×2 (02:57→12:46)
[2016-10-09 04:15] VITALS: BP 151/69; PULSE 82; RESP 16; TEMP 97.6; O2SAT 96
[2016-10-09] MEDS: INSULIN ASPART SUPPLEMENTAL SCALE SQ SCH ×4 (07:13→21:22)
[2016-10-09 08:00] VITALS: BP 162/81; PULSE 84; PULSE 90; RESP 17; TEMP 97.6; O2SAT 97
--- NOTE | 2016-10-09 08:54 | HHI.PR ---
Subjective Remarks no hallucination last night. Objective Vitals heart reg lung cta abd s/nt ext right foot toes 2 and 4 look much better. no red/purple/black amptuation site toe 3 bloody with necrotic tissue extending to plantar foot Vital Signs Date Time Temp Pulse Resp B/P Pulse Ox O2 Delivery O2 Flow Rate FiO2 10/09/16 08:00 97.6 84 17 162/81 97 10/09/16 04:15 97.6 82 16 151/69 96 10/08/16 23:15 98.3 81 16 137/58 97 10/08/16 20:00 Room Air 10/08/16 19:55 97.6 84 16 129/59 97 10/08/16 16:00 97.1 82 20 148/78 97 10/08/16 12:00 97.3 90 22 164/74 98 10/08/16 10/08/16 10/09/16 15:00 23:00 07:00 Intake Total 240 ml 360 ml 328 ml Output Total 825 ml 350 ml 375 ml Balance -585 ml 10 ml -47 ml Intake Oral 240 ml 360 ml 0 ml IV Total 328 ml Output Urine Total 825 ml 350 ml 375 ml # Bowel Movements 1 0 0 Result Diagram: 10/09/16 0618 Imaging Last Impressions Chest X-Ray 10/03/16 1318 Signed Impressions: Service Date/Time: Monday, October 03, 2016 13:31 - CONCLUSION: No acute cardiopulmonary abnormality is identified. Bebo Katz MD Foot X-Ray 10/03/16 1209 Signed Impressions: Service Date/Time: Monday, October 03, 2016 13:02 - CONCLUSION: 1. There has been prior near-complete amputation of the third digit. The proximal aspect of the proximal phalanx of the third digit remains. 2. There is soft tissue swelling of the dorsal aspect of the foot. Bebo Katz MD A/P Problem List: (1) Cellulitis Status: Acute Plan: - Second and fourth digits of right foot. dorsum of foot ..presumed cellulitis..?ischemic process. no hx vasculitis/ctd - Recent amputation of third digit of right foot with , 09/27/16 - Continue vancomycin and Zosyn - overall improved and no amputations now -?debridement of wound site of toe amputation on Tuesday Long talk with pt and about mental status. it appears that pt has had changes over past 6months to include more forgetfulness, agitates easily, paranoid and misplaces things. worsened recently with the infection. I think patient has dementia. psych consult agrees and also thinks he is experiencing some depression. pscyhosis sx's with visual hallucinations. started on haldol. ssri increased. observe sx's. so far better. -no obvious metabolic reason or drug. MRI/A negative for cva. (2) CAD (coronary artery disease) Status: Acute Plan: - Continue aspirin, metoprolol, Plavix, Lipitor (3) PAD (peripheral artery disease) Status: Chronic Plan: - Aspirin, Plavix, Pletal - See above (4) Diabetes Status: Chronic Plan: - SSI (5) Paroxysmal atrial fibrillation Status: Acute Plan: - Aspirin, Plavix - Continue metoprolol and digoxin Problem Qualifiers (1) Cellulitis: Qualified Code: L03.115 - Cellulitis of right lower extremity (2) CAD (coronary artery disease): Qualified Code: I25.10 - Coronary artery disease involving [place] heart without angina pectoris, unspecified vessel or lesion type (3) Diabetes: Qualified Code: E11.59 - Type 2 diabetes mellitus with other circulatory complication, with long-term current use of insulin Fish Fernandez MD Oct 09, 2016 08:54
[2016-10-09] MEDS: CILOSTAZOL 100 MG TAB PO SCH ×2 (08:58→20:56)
[2016-10-09] MEDS: SODIUM CHLORIDE 0.9% FLUSH 10 ML FLUSH IV FLUSH SCH ×2 (08:58→20:56)
[2016-10-09] MEDS: PANTOPRAZOLE SOD 20 MG DELAYED RELEASE TAB PO SCH (08:58)
[2016-10-09] MEDS: FLUoxetine HCL 10 MG CAP PO SCH (08:58)
[2016-10-09] MEDS: METOPROLOL TARTRATE 50 MG TAB PO SCH ×2 (08:58→20:55)
[2016-10-09] MEDS: DIGOXIN 0.125 MG TAB PO SCH (08:58)
[2016-10-09] MEDS: INSULIN DETEMIR 100 UNITS/ML VIAL SQ SCH ×2 (09:04→21:22)
[2016-10-09 12:00] VITALS: BP 112/70; PULSE 100; RESP 17; TEMP 97.5; O2SAT 97
[2016-10-09] MEDS ORDERED: PHARMACY ORDERED LAB ONE (12:45)
--- NOTE | 2016-10-09 13:23 | PD.VS.PN ---
Subjective Subjective/Hospital Course No new complaints. Objective Vitals/I&O Date Time Temp Pulse Resp B/P Pulse Ox O2 Delivery O2 Flow Rate FiO2 10/09/16 12:00 97.5 100 17 112/70 97 10/09/16 08:50 Room Air 10/09/16 08:00 90 10/09/16 08:00 97.6 84 17 162/81 97 10/09/16 04:15 97.6 82 16 151/69 96 10/08/16 23:15 98.3 81 16 137/58 97 10/08/16 20:00 Room Air 10/08/16 19:55 97.6 84 16 129/59 97 10/08/16 16:00 97.1 82 20 148/78 97 10/09/16 10/09/16 10/09/16 06:59 14:59 22:59 Intake Total 328 ml Output Total 375 ml Balance -47 ml Physical Exam right 3rd toe stump with ischemic edges but no surrounding erythema. 2.4 toes without erythema. Some ecchymosis at base of 2.4 MT Head. Laboratory Laboratory Tests Test 10/09/16 06:18 Creatinine 0.82 Estimat Glomerular Filtration 93 Rate Assessment and Plan Plan Cellulitis of right foot is improved. definitely 2,4 toes without erythema. Will continue to follow progress. Can ambulate (WBAT) and continue IV antibiotics (zosyn and vancomycin). Bertin Paula DO, FACS Journeyman Operator Assistant of Vascular Surgery MIRIAM/Bertin Donaldson DO Oct 09, 2016 13:22
[2016-10-09 16:00] VITALS: BP 141/73; PULSE 79; RESP 17; TEMP 97.8; O2SAT 97
[2016-10-09] MEDS: HALOPERIDOL 0.5 MG TAB PO SCH (16:22)
[2016-10-09 20:00] VITALS: BP 137/84; PULSE 83; PULSE 87; RESP 16; TEMP 97.3; O2SAT 97
[2016-10-09] MEDS: CLOPIDOGREL 75 MG TAB PO SCH (20:56)
[2016-10-09] MEDS: ATORVASTATIN 40 MG TAB PO SCH (20:56)
[2016-10-10] VITALS (8 sets, daily range): BP systolic 121–180; BP diastolic 61–88; PULSE 76–94; RESP 14–18; TEMP 97.6–97.8; O2SAT 94–98
[2016-10-10] MEDS: VANCOMYCIN 1,000 MG/NS 250 ML IV SCH ×4 (01:21→13:25)
[2016-10-10] MEDS: PIPERACIL-TAZO 3.375 GM PREMIX 50 ML IV SCH ×4 (01:24→20:09)
[2016-10-10] MEDS: NYSTATIN 100,000 U/GM OINT 15 GM TUBE TOPICAL SCH ×3 (01:26→16:43)
[2016-10-10] MEDS: INSULIN ASPART SUPPLEMENTAL SCALE SQ SCH ×4 (06:02→20:49)
[2016-10-10] MEDS: SODIUM CHLORIDE 0.9% FLUSH 10 ML FLUSH IV FLUSH SCH ×2 (08:41→20:10)
[2016-10-10] MEDS: DIGOXIN 0.125 MG TAB PO SCH (08:42)
[2016-10-10] MEDS: PANTOPRAZOLE SOD 20 MG DELAYED RELEASE TAB PO SCH (08:42)
[2016-10-10] MEDS: METOPROLOL TARTRATE 50 MG TAB PO SCH ×2 (08:42→20:09)
[2016-10-10] MEDS: CILOSTAZOL 100 MG TAB PO SCH ×2 (08:42→20:09)
[2016-10-10] MEDS: FLUoxetine HCL 10 MG CAP PO SCH (08:42)
[2016-10-10] MEDS: INSULIN DETEMIR 100 UNITS/ML VIAL SQ SCH ×2 (08:48→20:49)
--- NOTE | 2016-10-10 09:23 | HHI.PR ---
Subjective Remarks worried about the black appearance of tissue surrounding previous amputation. slept well. hallucinations gone. Objective Vitals heart reg lung cta abd s/nt ext right 3rd toe site black dry blood..but black strip of tissue on plantar surface with tenderness Vital Signs Date Time Temp Pulse Resp B/P Pulse Ox O2 Delivery O2 Flow Rate FiO2 10/10/16 08:40 Room Air 10/10/16 08:00 97.8 87 18 155/74 10/10/16 04:00 Room Air 10/10/16 04:00 97.8 87 14 121/61 97 10/10/16 00:00 97.8 76 16 124/71 97 10/10/16 00:00 Room Air 10/09/16 20:00 Room Air 10/09/16 20:00 97.3 87 16 137/84 97 10/09/16 20:00 83 10/09/16 16:00 97.8 79 17 141/73 97 10/09/16 12:00 97.5 100 17 112/70 97 10/09/16 10/09/16 10/10/16 15:00 23:00 07:00 Intake Total 1212 ml 53 ml 600 ml Output Total 150 ml Balance 1212 ml 53 ml 450 ml Intake Oral 960 ml 240 ml IV Total 252 ml 53 ml 360 ml Output Urine Total 150 ml # Voids 3 1 0 # Bowel Movements 0 Result Diagram: 10/09/16 0618 Imaging Last Impressions Chest X-Ray 10/03/16 1318 Signed Impressions: Service Date/Time: Monday, October 03, 2016 13:31 - CONCLUSION: No acute cardiopulmonary abnormality is identified. Bebo Katz MD Foot X-Ray 10/03/16 1209 Signed Impressions: Service Date/Time: Monday, October 03, 2016 13:02 - CONCLUSION: 1. There has been prior near-complete amputation of the third digit. The proximal aspect of the proximal phalanx of the third digit remains. 2. There is soft tissue swelling of the dorsal aspect of the foot. Bebo aKtz MD A/P Problem List: (1) Cellulitis Status: Acute Plan: - Second and fourth digits of right foot. dorsum of foot ..presumed cellulitis..?ischemic process. no hx vasculitis/ctd - Recent amputation of third digit of right foot with , 09/27/16 - Continue vancomycin and Zosyn - overall improved and no amputations now -I think pt should have debridement of wound site of toe amputation on Tuesday Long talk with pt and about mental status. it appears that pt has had changes over past 6months to include more forgetfulness, agitates easily, paranoid and misplaces things. worsened recently with the infection. I think patient has dementia. psych consult agrees and also thinks he is experiencing some depression. pscyhosis sx's with visual hallucinations. started on haldol. ssri increased. observe sx's. so far better. needs psych f/u [facility]. -no obvious metabolic reason or drug. MRI/A negative for cva. (2) CAD (coronary artery disease) Status: Acute Plan: - Continue aspirin, metoprolol, Plavix, Lipitor (3) PAD (peripheral artery disease) Status: Chronic Plan: - Aspirin, Plavix, Pletal - See above (4) Diabetes Status: Chronic Plan: - SSI (5) Paroxysmal atrial fibrillation Status: Acute Plan: - Aspirin, Plavix - Continue metoprolol and digoxin Problem Qualifiers (1) Cellulitis: Qualified Code: L03.115 - Cellulitis of right lower extremity (2) CAD (coronary artery disease): Qualified Code: I25.10 - Coronary artery disease involving [place] heart without angina pectoris, unspecified vessel or lesion type (3) Diabetes: Qualified Code: E11.59 - Type 2 diabetes mellitus with other circulatory complication, with long-term current use of insulin Fish Fernandez MD Oct 10, 2016 09:23
--- NOTE | 2016-10-10 10:07 | PD.VS.PN ---
Subjective Subjective/Hospital Course No new complaints. Pain better except with direct pressure No chills Objective Vitals/I&O Date Time Temp Pulse Resp B/P Pulse Ox O2 Delivery O2 Flow Rate FiO2 10/10/16 08:40 Room Air 10/10/16 08:00 97.8 87 18 155/74 10/10/16 04:00 Room Air 10/10/16 04:00 97.8 87 14 121/61 97 10/10/16 00:00 97.8 76 16 124/71 97 10/10/16 00:00 Room Air 10/09/16 20:00 Room Air 10/09/16 20:00 97.3 87 16 137/84 97 10/09/16 20:00 83 10/09/16 16:00 97.8 79 17 141/73 97 10/09/16 12:00 97.5 100 17 112/70 97 10/10/16 10/10/16 10/10/16 07:00 15:00 23:00 Intake Total 600 ml Output Total 150 ml Balance 450 ml Physical Exam R forefoot erythema significantly improved Toes 2 and 3 no longer erythematous base 3rd toe with necrotic tissue and serous drainage Laboratory Laboratory Tests Test 10/09/16 12:45 Vancomycin Level Trough 18.0 Assessment and Plan Plan I tried to drain the wound at the bedside but he was too tender Discussed with pt and ; will plan on taking to OR tomorrow (Tue) for RIGHT foot debridement Anticipate d/c Tues with HH if ok from primary service standpoint Abner Chavez MD Oct 10, 2016 10:07
[2016-10-10] MEDS: HALOPERIDOL 0.5 MG TAB PO SCH (15:17)
[2016-10-10] MEDS: ATORVASTATIN 40 MG TAB PO SCH (20:09)
[2016-10-10] MEDS: CLOPIDOGREL 75 MG TAB PO SCH (20:10)
[2016-10-11] VITALS (7 sets, daily range): BP systolic 111–139; BP diastolic 60–80; PULSE 64–109; RESP 16–18; TEMP 97.3–98.1; O2SAT 94–97
[2016-10-11] MEDS ORDERED: PHARMACY ORDERED LAB ONE (00:45)
[2016-10-11] MEDS: VANCOMYCIN 1,000 MG/NS 250 ML IV SCH ×4 (00:54→13:00)
[2016-10-11] MEDS: PIPERACIL-TAZO 3.375 GM PREMIX 50 ML IV SCH ×4 (02:12→21:25)
[2016-10-11] MEDS: NYSTATIN 100,000 U/GM OINT 15 GM TUBE TOPICAL SCH ×3 (02:13→17:42)
[2016-10-11] MEDS: INSULIN ASPART SUPPLEMENTAL SCALE SQ SCH ×4 (07:00→21:00)
[2016-10-11] MEDS ORDERED: PROPOFOL 200 MG/20 ML AMP IV ONE (07:51)
[2016-10-11] MEDS: CILOSTAZOL 100 MG TAB PO SCH ×2 (08:38→21:25)
[2016-10-11] MEDS: PANTOPRAZOLE SOD 20 MG DELAYED RELEASE TAB PO SCH (08:38)
[2016-10-11] MEDS: DIGOXIN 0.125 MG TAB PO SCH (08:38)
[2016-10-11] MEDS: METOPROLOL TARTRATE 50 MG TAB PO SCH ×2 (08:38→21:25)
[2016-10-11] MEDS: SODIUM CHLORIDE 0.9% FLUSH 10 ML FLUSH IV FLUSH SCH ×2 (08:38→21:25)
[2016-10-11] MEDS: FLUoxetine HCL 10 MG CAP PO SCH (08:38)
[2016-10-11] MEDS: INSULIN DETEMIR 100 UNITS/ML VIAL SQ SCH ×2 (08:48→21:46)
--- NOTE | 2016-10-11 14:37 | PD.VS.PN ---
Pre-operative Note Pre-operative diagnosis: R foot wound, DM Planned procedure: R foot debridement Interval History: Pt has been an inpatient. No changes to preclude OR. Blood: none needed Imaging: Last Impressions Orbit X-Ray 10/06/16 0000 Signed Impressions: Service Date/Time: Thursday, October 06, 2016 20:44 - CONCLUSION: Unremarkable limited examination of the orbits. Yosi Mars Jr., MD Head Magnetic Resonance Angiography 10/06/16 0000 Signed Impressions: Service Date/Time: Thursday, October 06, 2016 21:24 - CONCLUSION: Variant anatomy. Otherwise, unremarkable exam. Yosi Mars Jr., MD Brain MRI 10/06/16 0000 Signed Impressions: Service Date/Time: Thursday, October 06, 2016 21:24 - CONCLUSION: 1. No acute intracranial abnormality. 2. Atrophy. 3. Chronic small vessel ischemic change. Yosi Mars Jr., MD Lower Extremity CT 10/05/16 0000 Signed Impressions: Service Date/Time: Wednesday, October 05, 2016 09:13 - CONCLUSION: 1. Status post recent near-complete amputation of the third toe. 2. There is a questionable erosion involving the residual base of the third proximal phalanx. This could be postsurgical versus infection. There is surrounding soft tissue swelling and a couple droplets of air in this location. 3. No loculated fluid collection is seen in the soft tissues to indicate a soft tissue abscess at this time. Thai Nuñez MD Chest X-Ray 10/03/16 1318 Signed Impressions: Service Date/Time: Monday, October 03, 2016 13:31 - CONCLUSION: No acute cardiopulmonary abnormality is identified. Bebo Katz MD Foot X-Ray 10/03/16 1209 Signed Impressions: Service Date/Time: Monday, October 03, 2016 13:02 - CONCLUSION: 1. There has been prior near-complete amputation of the third digit. The proximal aspect of the proximal phalanx of the third digit remains. 2. There is soft tissue swelling of the dorsal aspect of the foot. Bebo Katz MD Orders: NPO since MN Post-operative destination: PACU Operative site marked: Yes Consent: Informed consent has been obtained from Gumaro Rojo. I have explained the procedure in detail and discussed the risks, benefits, and potential complications. All questions have been answered. Abner Chavez MD Oct 11, 2016 14:37
[2016-10-11] MEDS ORDERED: BUPIVACAINE HCL PF 0.5% 30 ML VIAL ONE (15:04)
[2016-10-11] MEDS ORDERED: DILTIAZEM HCL 25 MG/5 ML VIAL ONE (15:24)
--- NOTE | 2016-10-11 15:24 | HHI.PR ---
Immediate Post Op Note Procedure Date: Oct 11, 2016 Pre Op Diagnosis: R 3rd toe wound Post Op Diagnosis: R 3rd toe wound Surgeon: Abner Chavez Weed Cooking Operator(s): none Procedure: debridement of R third toe wound (skin and sub-q tissue, <10 sq cm) Findings: no infection Complications: exacerbated a-fib controlled with beta viriglio Estimated blood loss: 5mL Anesthesia: MAC Drains: None Fluids: 250 mL IVF Patient to: PACU Patient Condition: Good Date/Time of Procedure: SEE SURGICAL CARE RECORD Abner Chavez MD Oct 11, 2016 15:24
[2016-10-11] MEDS ORDERED: DO NOT ADM ANY ANTICOAGULANT DRUGS PRN (15:31)
[2016-10-11] MEDS ORDERED: *morphine SULFATE 8 MG/ML PERIprocedure ONLY ONE ×2 (15:51→17:02)
[2016-10-11] MEDS ORDERED: *diphenhydrAMINE HCL 50 MG/ML VIAL PERIprocedural Use ONLY ONE (15:57)
[2016-10-11] MEDS ORDERED: *LABETALOL HCL 100 MG/20 ML VIAL PERIprocedural Use ONLY ONE (16:36)
[2016-10-11] MEDS: HALOPERIDOL 0.5 MG TAB PO SCH (17:40)
[2016-10-11] MEDS: CLOPIDOGREL 75 MG TAB PO SCH (21:25)
[2016-10-11] MEDS: ATORVASTATIN 40 MG TAB PO SCH (21:25)
[2016-10-12] VITALS (7 sets, daily range): BP systolic 104–145; BP diastolic 62–80; PULSE 81–109; RESP 16–19; TEMP 97.2–98; O2SAT 94–96
[2016-10-12] MEDS: PIPERACIL-TAZO 3.375 GM PREMIX 50 ML IV SCH ×4 (01:35→20:05)
[2016-10-12] MEDS: VANCOMYCIN 1,000 MG/NS 250 ML IV SCH ×4 (01:35→13:33)
[2016-10-12] MEDS: NYSTATIN 100,000 U/GM OINT 15 GM TUBE TOPICAL SCH ×3 (01:36→17:11)
[2016-10-12] MEDS: INSULIN ASPART SUPPLEMENTAL SCALE SQ SCH ×4 (06:25→21:00)
[2016-10-12] MEDS: DIGOXIN 0.125 MG TAB PO SCH (07:37)
[2016-10-12] MEDS: CILOSTAZOL 100 MG TAB PO SCH ×2 (07:38→21:17)
[2016-10-12] MEDS: FLUoxetine HCL 10 MG CAP PO SCH (07:38)
[2016-10-12] MEDS: SODIUM CHLORIDE 0.9% FLUSH 10 ML FLUSH IV FLUSH SCH ×2 (07:38→20:05)
[2016-10-12] MEDS: PANTOPRAZOLE SOD 20 MG DELAYED RELEASE TAB PO SCH (07:38)
[2016-10-12] MEDS: METOPROLOL TARTRATE 50 MG TAB PO SCH ×2 (07:38→21:17)
[2016-10-12] MEDS: INSULIN DETEMIR 100 UNITS/ML VIAL SQ SCH ×2 (07:47→21:16)
--- NOTE | 2016-10-12 12:41 | MP ---
cc: ABNER CHAVEZ MD DATE OF SURGERY 10/11/2016 PRIMARY DIAGNOSIS Right third toe wound. POSTOPERATIVE DIAGNOSIS Right third toe wound. PROCEDURE Debridement of skin, subcutaneous tissue of right third toe wound (less than 10 square cm) SURGEON Abner Chavez MD ANESTHESIA MAC INDICATIONS Mr. Rojo is a 70-year-old gentleman with a right third toe amputation. The amputation site appeared necrotic and was causing the patient pain. There was no evidence of infection, but he was taken to the operating room for operative debridement. DESCRIPTION OF PROCEDURE Informed consent was obtained. The patient was taken to the operating room and placed supine on the operating table. An appropriate time-out was taken to assure the patient's operative site and planned procedure. The administration of antibiotics was not necessary as the patient was already on systemic and therapeutic antibiotics and these will be continued postoperatively for ongoing therapy. Everyone in the room agreed with the time out and we proceeded. His right foot was prepped and draped and the previous amputation was incised and elliptically excised in total including skin and subcutaneous tissue. The bone was then debrided with a rongeur and the entire subcutaneous tissue was debrided with sharp debridement. The wound was irrigated, infiltrated with Marcaine and wrapped in a Kerlix. There are no complications was present. I was present and scrubbed for the entire procedure. Abner Chavez MD RJF/DJL /4:55 PM /12:32 PM
[2016-10-12] MEDS ORDERED: PHARMACY ORDERED LAB ONE (12:45)
--- NOTE | 2016-10-12 13:02 | PD.VS.PN ---
Subjective POD #: 1 Procedure(s): Debridement of R third toe wound Subjective/Hospital Course Pt c/o pain to surgical site Pain controlled w/ meds Pt denies fever chills swelling or redness Dressing dry and intact Objective Vitals/I&O Date Time Temp Pulse Resp B/P Pulse Ox O2 Delivery O2 Flow Rate FiO2 10/12/16 12:06 98.0 94 18 145/80 96 10/12/16 08:06 97.9 105 18 104/62 94 10/12/16 05:50 97.4 81 18 123/64 94 10/12/16 04:00 Room Air 10/12/16 00:00 Room Air 10/12/16 00:00 97.2 83 18 117/64 95 10/11/16 20:00 Room Air 10/11/16 20:00 97.3 64 18 126/60 94 10/11/16 19:57 109 10/11/16 17:00 110 16 153/74 97 Nasal Cannula 2 10/11/16 16:45 106 16 151/97 97 Nasal Cannula 2 10/11/16 16:30 108 16 186/84 97 Nasal Cannula 2 10/11/16 16:15 120 16 179/88 97 Nasal Cannula 2 10/11/16 16:00 118 16 137/62 97 Nasal Cannula 2 10/11/16 15:45 112 16 167/72 99 Nasal Cannula 2 10/11/16 15:37 97.8 104 16 142/80 99 Nasal Cannula 2 10/12/16 10/12/16 10/12/16 07:00 15:00 23:00 Intake Total 431 ml Balance 431 ml Exam: GENERAL: Pt alert and oriented in NAD, GCS 15 SKIN: Warm and dry. dressing changed, Debridement site of R third toe wound with red tissue/ no swelling, odor or drainage present CARDIOVASCULAR: +S1,S2 RESPIRATORY: BS CTA MUSCULOSKELETAL: No cyanosis, or edema, BLE 5/5 strength + R triphasic PT/DP bilat feet warm w/ motor intact Pulses: + triphasic R DP/PT Laboratory Laboratory Tests Test 10/12/16 07:15 Creatinine 0.87 Estimat Glomerular Filtration 87 Rate Assessment and Plan Assessment: (1) S/P debridement Status: Acute Plan Pt doing well this afternoon c/o pain this am Pain controlled with pain meds Plan Changed dressing to R third toe wound Orders for daily wound care written PT/OOB Shannon IBRAHIM [facility] [place] [phone] Discharge Planning From a vascular standpoint pt is OK for D/C as early as tomorrow if pain is controlled and able to ambulate w/o difficulty Will see patient in our OPC on Tuesday for F/U Shannon Martinez Oct 12, 2016 13:02
[2016-10-12] MEDS: HALOPERIDOL 0.5 MG TAB PO SCH (14:54)
--- NOTE | 2016-10-12 16:31 | HHI.PR ---
Subjective Remarks No new complaints. Pt had increased pain this morning in the right foot and was unable to participate in PT Afebrile. Objective Vitals Vital Signs Date Time Temp Pulse Resp B/P Pulse Ox O2 Delivery O2 Flow Rate FiO2 10/12/16 16:12 97.7 90 19 114/64 96 10/12/16 12:06 98.0 94 18 145/80 96 10/12/16 08:06 97.9 105 18 104/62 94 10/12/16 05:50 97.4 81 18 123/64 94 10/12/16 04:00 Room Air 10/12/16 00:00 Room Air 10/12/16 00:00 97.2 83 18 117/64 95 10/11/16 20:00 Room Air 10/11/16 20:00 97.3 64 18 126/60 94 10/11/16 19:57 109 10/11/16 17:00 110 16 153/74 97 Nasal Cannula 2 10/11/16 16:45 106 16 151/97 97 Nasal Cannula 2 10/11/16 16:30 108 16 186/84 97 Nasal Cannula 2 10/11/16 16:15 120 16 179/88 97 Nasal Cannula 2 10/11/16 10/11/16 10/12/16 15:00 23:00 07:00 Intake Total 0 ml 300 ml 431 ml Output Total 400 ml 475 ml Balance -400 ml -175 ml 431 ml Intake Oral 0 ml 0 ml 120 ml IV Total 300 ml 311 ml Output Urine Total 400 ml 475 ml # Voids 0 # Bowel Movements 0 0 0 Result Diagram: 10/12/16 0715 Other Results Laboratory Tests Test 10/11/16 10/11/16 10/12/16 00:50 05:50 07:15 Vancomycin Level Trough 13.6 MCG/ML Creatinine 0.87 MG/DL 0.87 MG/DL Estimat Glomerular Filtration 87 ML/MIN 87 ML/MIN Rate Imaging Last Impressions Orbit X-Ray 10/06/16 0000 Signed Impressions: Service Date/Time: Thursday, October 06, 2016 20:44 - CONCLUSION: Unremarkable limited examination of the orbits. Yosi Mars Jr., MD Head Magnetic Resonance Angiography 10/06/16 0000 Signed Impressions: Service Date/Time: Thursday, October 06, 2016 21:24 - CONCLUSION: Variant anatomy. Otherwise, unremarkable exam. Yosi Mars Jr., MD Brain MRI 10/06/16 0000 Signed Impressions: Service Date/Time: Thursday, October 06, 2016 21:24 - CONCLUSION: 1. No acute intracranial abnormality. 2. Atrophy. 3. Chronic small vessel ischemic change. Yosi Mars Jr., MD Lower Extremity CT 10/05/16 0000 Signed Impressions: Service Date/Time: Wednesday, October 05, 2016 09:13 - CONCLUSION: 1. Status post recent near-complete amputation of the third toe. 2. There is a questionable erosion involving the residual base of the third proximal phalanx. This could be postsurgical versus infection. There is surrounding soft tissue swelling and a couple droplets of air in this location. 3. No loculated fluid collection is seen in the soft tissues to indicate a soft tissue abscess at this time. Thai Nuñez MD Chest X-Ray 10/03/16 1318 Signed Impressions: Service Date/Time: Monday, October 03, 2016 13:31 - CONCLUSION: No acute cardiopulmonary abnormality is identified. Bebo Katz MD Foot X-Ray 10/03/16 1209 Signed Impressions: Service Date/Time: Monday, October 03, 2016 13:02 - CONCLUSION: 1. There has been prior near-complete amputation of the third digit. The proximal aspect of the proximal phalanx of the third digit remains. 2. There is soft tissue swelling of the dorsal aspect of the foot. Bebo Katz MD Last Impressions Chest X-Ray 10/03/16 1318 Signed Impressions: Service Date/Time: Monday, October 03, 2016 13:31 - CONCLUSION: No acute cardiopulmonary abnormality is identified. Bebo Katz MD Foot X-Ray 10/03/16 1209 Signed Impressions: Service Date/Time: Monday, October 03, 2016 13:02 - CONCLUSION: 1. There has been prior near-complete amputation of the third digit. The proximal aspect of the proximal phalanx of the third digit remains. 2. There is soft tissue swelling of the dorsal aspect of the foot. Bebo Katz MD Objective Remarks General: NAD, Awake and alert Chest: CTA Cardiac: Regular Abd: +BS, soft ND/NT Ext: Right foot bandages are c/d/i A/P Problem List: (1) Cellulitis Status: Acute Plan: - Pt is a 70 y/o with diabetes, paroxysmal atrial fibrillation, and peripheral artery disease. Patient underwent amputation of right third toe on 09/27/[address] Chavez. - Pt was admitted with cellulitis of the second and fourth digits of right foot/ dorsum of foot ?ischemic process. - Pt was started on Vancomycin and Zosyn at admission and this was continued - MRI Foot (10/05/16) --> Status post recent near-complete amputation of the third toe. There is a questionable erosion involving the residual base of the third proximal phalanx. This could be postsurgical versus infection. There is surrounding soft tissue swelling and a couple droplets of air in this location. No loculated fluid collection is seen in the soft tissues to indicate a soft tissue abscess at this time. - Vascular surgery is following - Vascular surgery tried to drain the wound at the bedside but was unable to as the pt was too tender - Pt underwent debridement of the right 3rd toe wound on 10/11/[address] Chavez. - Pain control PRN - Pt will need to be converted to oral Abx and will discuss the case with Dr. Chavez tomorrow. - Anticipate d/c in the next 1-2 days. (2) Altered mental status Status: Acute Plan: - Per previous discussion with the pts and Dr. Burleson, it appears that pt has had changes over past 6 months to include more forgetfulness, agitates easily, paranoid and misplaces things. - This worsened recently with the infection. - There is no obvious metabolic reason or drug. - MRI/A negative for cva. - It is felt likely that the patient has underlying dementia. - Psych was consulted and agrees that the pt has dementia with psychosis with visual hallucination and also thinks he is experiencing some depression. - Pt was started on Haldol 30mgpo daily - Prozac 30mg po daily - Pt will need psych f/u as an outpt with CP. (3) CAD (coronary artery disease) Status: Acute Plan: - Continue aspirin, metoprolol, Plavix, Lipitor (4) PAD (peripheral artery disease) Status: Chronic Plan: - Aspirin, Plavix, Pletal - See above (5) Diabetes Status: Chronic Plan: - SSI (6) Paroxysmal atrial fibrillation Status: Acute Plan: - Aspirin, Plavix - Continue metoprolol and digoxin Assessment and Plan Patient examined. Assessment and plan formulated with Carol Loco PA-C. I agree with the above. Problem Qualifiers (1) Cellulitis: Qualified Code: L03.115 - Cellulitis of right lower extremity (2) CAD (coronary artery disease): Qualified Code: I25.10 - Coronary artery disease involving chinik heart without angina pectoris, unspecified vessel or lesion type (3) Diabetes: Qualified Code: E11.59 - Type 2 diabetes mellitus with other circulatory complication, with long-term current use of insulin Carol Loco Oct 12, 2016 16:31 Gumaro Garcia DO Oct 13, 2016 22:27
[2016-10-12] MEDS: ATORVASTATIN 40 MG TAB PO SCH (21:17)
[2016-10-12] MEDS: CLOPIDOGREL 75 MG TAB PO SCH (21:17)
[2016-10-13] VITALS: BP 139/71; PULSE 83; RESP 16; TEMP 98.3; O2SAT 94
[2016-10-13] MEDS: VANCOMYCIN 1,000 MG/NS 250 ML IV SCH ×2 (01:54)
[2016-10-13] MEDS: NYSTATIN 100,000 U/GM OINT 15 GM TUBE TOPICAL SCH (01:56)
[2016-10-13] MEDS: PIPERACIL-TAZO 3.375 GM PREMIX 50 ML IV SCH ×2 (02:58→08:00)
[2016-10-13 04:00] VITALS: BP 129/71; PULSE 75; RESP 18; TEMP 98; O2SAT 98
[2016-10-13] MEDS: INSULIN ASPART SUPPLEMENTAL SCALE SQ SCH (05:35)
[2016-10-13 08:00] VITALS: PULSE 78
[2016-10-13 08:05] VITALS: BP 120/68; PULSE 85; RESP 16; TEMP 97.7; O2SAT 94
[2016-10-13] MEDS: CILOSTAZOL 100 MG TAB PO SCH (08:17)
[2016-10-13] MEDS: PANTOPRAZOLE SOD 20 MG DELAYED RELEASE TAB PO SCH (08:17)
[2016-10-13] MEDS: METOPROLOL TARTRATE 50 MG TAB PO SCH (08:17)
[2016-10-13] MEDS: DIGOXIN 0.125 MG TAB PO SCH (08:17)
[2016-10-13] MEDS: FLUoxetine HCL 10 MG CAP PO SCH (08:17)
[2016-10-13] MEDS: SODIUM CHLORIDE 0.9% FLUSH 10 ML FLUSH IV FLUSH SCH (08:23)
[2016-10-13] MEDS: INSULIN DETEMIR 100 UNITS/ML VIAL SQ SCH (08:25)
[2016-10-13 09:00] VITALS: O2SAT 95
--- NOTE | 2016-10-13 09:57 | PD.VS.PN ---
Subjective POD #: 2 Procedure(s): Debridement of R third toe wound Subjective/Hospital Course Pt w/o complaints this am Dressing c/d/i to right foot Pt reported improved pain this am Objective Vitals/I&O Date Time Temp Pulse Resp B/P Pulse Ox O2 Delivery O2 Flow Rate FiO2 10/13/16 08:05 97.7 85 16 120/68 94 10/13/16 04:00 98.0 75 18 129/71 98 10/13/16 00:00 98.3 83 16 139/71 94 10/12/16 20:00 98.0 88 16 145/70 96 10/12/16 20:00 109 10/12/16 17:20 96 21 10/12/16 16:12 97.7 90 19 114/64 96 10/12/16 12:06 98.0 94 18 145/80 96 10/13/16 10/13/16 10/13/16 06:59 14:59 22:59 Intake Total 540 ml Output Total 650 ml Balance -110 ml Exam: GENERAL: A&OX3, NAD, GCS15 SKIN: Warm and dry, R third toe surgical site with red tissue, no drainage, swelling or odor present CARDIOVASCULAR: +S1,S2, RRR w/o M/G/R RESPIRATORY: BS CTA GASTROINTESTINAL: Abdomen S/NT MUSCULOSKELETAL: No cyanosis, or edema. Bilat feet warm w/ motor intact Laboratory Laboratory Tests Test 10/13/16 06:21 Creatinine 0.84 Estimat Glomerular Filtration 90 Rate Assessment and Plan Assessment: (1) S/P debridement Status: Acute Plan Plan PT/OOB Continue daily wound care management Apply post op shoe with transfers/ambulation Shannon IBRAHIM [facility] [phone] Discharge Planning From a vascular standpoint pt is OK for D/C Will see patient in our OPC next Tuesday for F/U Shannon Martinez Oct 13, 2016 09:57
[2016-10-13] MEDS ORDERED: AUGM875T3 PO (10:39)
[2016-10-13] MEDS ORDERED: FLUO10CA4 PO (10:39)
[2016-10-13] MEDS ORDERED: HALO0.5T PO (10:39)
--- NOTE | 2016-10-13 10:55 | HHI.DS ---
Discharge Summary Admission Date October 03, 2016 at 13:26 Discharge Date: Oct 13, 2016 Admitting Diagnosis right foot cellulitis after surgery, DM, PVA (1) Cellulitis Diagnosis: Principal (2) Altered mental status Diagnosis: Secondary (3) CAD (coronary artery disease) Diagnosis: Secondary (4) PAD (peripheral artery disease) Diagnosis: Secondary (5) Diabetes Diagnosis: Secondary (6) Paroxysmal atrial fibrillation Diagnosis: Secondary Consultants Dr. Abner Chavez - Vascular Surgery Dr. Santiago Mills - Psychiatry Procedures Debridement of the right 3rd toe wound on 10/11/[address] Chavez. Brief History Patient is a 70-year-old male with history of diabetes, paroxysmal atrial fibrillation, and peripheral artery disease. Patient underwent amputation of right third toe on 09/27/[address] Chavez. Patient was seen by Dr. Chavez on at his clinic. At this time amputation site appeared clean and intact. However, patient developed erythema at his right second and fourth toes over the last 48 hours. Patient presented to the ER for evaluation of this new erythema. Patient denies fever or chills. CBC/BMP: 10/13/16 0621 Significant Findings Laboratory Tests Test 10/11/16 10/11/16 10/12/16 00:50 05:50 07:15 Vancomycin Level Trough 13.6 MCG/ML (5.0-10.0) Estimat Glomerular Filtration 87 ML/MIN (>89) 87 ML/MIN (>89) Rate Imaging Last Impressions Orbit X-Ray 10/06/16 0000 Signed Impressions: Service Date/Time: Thursday, October 06, 2016 20:44 - CONCLUSION: Unremarkable limited examination of the orbits. Yosi Mars Jr., MD Head Magnetic Resonance Angiography 10/06/16 0000 Signed Impressions: Service Date/Time: Thursday, October 06, 2016 21:24 - CONCLUSION: Variant anatomy. Otherwise, unremarkable exam. Yosi Mars Jr., MD Brain MRI 10/06/16 0000 Signed Impressions: Service Date/Time: Thursday, October 06, 2016 21:24 - CONCLUSION: 1. No acute intracranial abnormality. 2. Atrophy. 3. Chronic small vessel ischemic change. Yosi Mars Jr., MD Lower Extremity CT 10/05/16 0000 Signed Impressions: Service Date/Time: Wednesday, October 05, 2016 09:13 - CONCLUSION: 1. Status post recent near-complete amputation of the third toe. 2. There is a questionable erosion involving the residual base of the third proximal phalanx. This could be postsurgical versus infection. There is surrounding soft tissue swelling and a couple droplets of air in this location. 3. No loculated fluid collection is seen in the soft tissues to indicate a soft tissue abscess at this time. Thai Nuñez MD Chest X-Ray 10/03/16 1318 Signed Impressions: Service Date/Time: Monday, October 03, 2016 13:31 - CONCLUSION: No acute cardiopulmonary abnormality is identified. Bebo Katz MD Foot X-Ray 10/03/16 1209 Signed Impressions: Service Date/Time: Monday, October 03, 2016 13:02 - CONCLUSION: 1. There has been prior near-complete amputation of the third digit. The proximal aspect of the proximal phalanx of the third digit remains. 2. There is soft tissue swelling of the dorsal aspect of the foot. Bebo Katz MD PE at Discharge General: NAD, Awake and alert Chest: CTA Cardiac: Regular Abd: +BS, soft ND/NT Ext: Right foot bandages are c/d/i Hospital Course Pt is a 70 y/o with diabetes, paroxysmal atrial fibrillation, and peripheral artery disease. Patient underwent amputation of right third toe on 09/27/[address] Chavez. Pt was admitted with cellulitis of the second and fourth digits of right foot/dorsum of foot ?ischemic process. Pt was started on Vancomycin and Zosyn at admission and this was continued. MRI Foot (10/05/16) -- > Status post recent near-complete amputation of the third toe. There is a questionable erosion involving the residual base of the third proximal phalanx. This could be postsurgical versus infection. There is surrounding soft tissue swelling and a couple droplets of air in this location. No loculated fluid collection is seen in the soft tissues to indicate a soft tissue abscess at this time. Vascular surgery was consulted. Vascular surgery tried to drain the wound at the bedside but was unable to as the pt was too tender. Pt underwent debridement of the right 3rd toe wound on 10/11/[address] Chavez. Pt recommended to have daily dressing changes with Maxorb Extra AG+ to be lightly packed into R third toe wound and then covered with 2x2 then 4x4 then kerlix then tape. The pt was recommended to go to SNF at discharge but he and his refused. They were also recommended HHC/PT for wound care and continued PT but they also refused this as well. The importance of continued wound care was stressed to the pt and his as well as high risk for repeat infections, hospital readmissions and possible amputation should he develop a worsening infection/osteomyelitis. They expressed understanding but again refused any HHC. This was discussed with Dr. Chavez and he will have the pt return every 3 days to his office for followup and monitoring of the wound. Pt will need to be converted to oral Abx with Augmentin BID x 5 more days. During admission the pt had some worsening AMS and agitation. Per previous discussion between the pts and Dr. Fernandez, it appears that pt has had changes over past 6 months to include more forgetfulness, agitates easily, paranoid and misplaces things. This worsened recently with the infection. There is no obvious metabolic reason or drug. MRI/A negative for CVA. It is felt likely that the patient has underlying dementia. Psych was consulted and they agrees that the pt has dementia with psychosis with visual hallucination and also thinks he is experiencing some depression. Pt was started on Haldol 30mgpo daily and this will be continued as an outpt. Pts Prozac was increased to 30mg po daily. Pt will need psych f/u as an outpt with [facility]. Pt will need to followup with Dr. Leung office on 10/15/16. Pt will need to followup with his PCP, Dr. Gibbons, in 1 week Pt will need to followup with [facility] within 1 week as well. Pt Condition on Discharge: Stable Discharge Disposition: Discharge Home Discharge Instructions DIET: Follow Instructions for: Diabetic Diet Activities you can perform: Weight Bearing as Radha, See Additionl Instruction Other Activity Instructions: Must wear post-op shoe when ambulating Follow up Referrals: PCP Follow-up - [address] Gibbons Psychiatry Adult - 1 Week with [facility] Vascular Surgery - 10/15/16 with Abner Chavez MD New Medications: Amoxicillin-Clavulanate (Augmentin) 875-125 Mg Tab 1 TAB PO BID Infection #10 Ref 0 TAB Fluoxetine (Pmdd) (Fluoxetine (Pmdd)) 10 Mg Cap 30 MG PO DAILY depression #30 CAP Haloperidol (Haloperidol) 0.5 Mg Tab 0.5 MG PO DAILY@1600 dementia with agitation #30 TAB Continued Medications: Aspirin DR (Aspirin Adult Low Strength) 81 Mg Tabdr 81 MG PO DAILY TAB Atorvastatin (Atorvastatin) 40 Mg Tab 40 MG PO HS Cholesterol Management #30 Ref 0 TAB Cholecalciferol (Vitamin D3) 5,000 Unit Cap 5000 UNITS PO MOWEFR Take 1 capsule daily on Tuesday,Tuesday and Tuesday Nutritional Supplement #1 Ref 0 BOTTLE Cilostazol (Cilostazol) 100 Mg Tab 100 MG PO BID INTERMITTENT CLAUDICATION Ref 0 TAB Clopidogrel (Plavix) 75 Mg Tab 75 MG PO HS Blood Clot Prevention #30 Ref 0 TAB Digoxin (Digoxin) 0.125 Mg Tab 0.125 MG PO DAILY Regulate Heart Beat #30 Ref 0 TAB Insulin Glargine Inj (Lantus Inj) 100 Unit/Ml Inj 50 UNIT SQ BID Insulin Human Regular Inj (Novolin R Inj) 1,000 Unit/10 Ml Vial 0 SQ DIRECTED Sliding Scale As Directed. Blood Sugar Management #10 Ref 0 ML Lansoprazole (Prevacid 24Hr) 15 Mg Cap 15 MG PO DAILY Metoprolol Tartrate (Metoprolol Tartrate) 50 Mg Tab 50 MG PO BID #60 Ref 0 TAB Multiple Vitamins W/ Minerals (Centrum Silver) 1 Chw Chw 1 TAB PO DAILY Nutritional Supplement [place]-3 Fatty Acids (Fish Oil) 500 Mg Cap 500 MG PO DAILY Oxycodone (Oxycodone) 5 Mg Cap 5 MG PO Q6H PRN PAIN Ref 0 CAP Discontinued Medications: Fluoxetine (Prozac) 20 Mg Cap 20 MG PO DAILY #30 Ref 0 CAP Naproxen Sodium (Naproxen Sodium) 220 Mg Tab 220 MG PO BID PRN Pain Management Ref 0 TAB Additional Information Patient examined. Assessment and plan formulated with Carol Loco PA-C. I agree with the above. Carol Loco Oct 13, 2016 10:54 Gumaro Garcia DO Oct 13, 2016 22:26
--- NOTE | 2016-10-13 10:56 | HHI.DCPOC ---
Discharge Care Plan Diagnosis: (1) PAD (peripheral artery disease) (2) Cellulitis (3) S/P debridement (4) Altered mental status (5) Paroxysmal atrial fibrillation (6) Diabetes (7) CAD (coronary artery disease) Goals to Promote Your Health - Patient is recommended to have daily dressing changes with Maxorb Extra AG + to be lightly packed into right third toe wound and then covered with 2x2 then 4x4 then Kerlix then tape. - Pt will need to followup with Dr. Chavez on Tuesday10/15/16 and he will have the pt return every 3 days to his office for followup and monitoring of the wound. - Pt will be discharged on oral Augmentin twice daily x 5 more days. - Pt was started on Haldol 30mg daily and this will be continued as an outpt and his Prozac was increased to 30mg daily. Pt will need psych f/u as an outpt with [facility]. - Pt will need to followup with his PCP, Dr. Gibbons, in 1 week, call for an appt. - Pt will need to followup with [facility] within 1 week as well, call for an appt. Directions to Meet Your Goals Take your medications as prescribed Follow your dietary instruction Follow activity as directed Keep your appointments as scheduled Take your immunizations and boosters as scheduled If your symptoms worsen call your PCP, if no PCP go to Urgent Care Center or Emergency Room Smoking is Dangerous to Your Health. Avoid second hand smoke Call the 24-hour hour crisis hotline for domestic abuse at [facility] Oct 13, 2016 10:56 Gumaro Garcia DO Oct 13, 2016 22:27 Take your immunizations and boosters as scheduled If your symptoms worsen call your PCP, if no PCP go to Urgent Care Center or Emergency Room Smoking is Dangerous to Your Health. Avoid second hand smoke Call the 24-hour hour crisis hotline for domestic abuse at [facility] Oct 13, 2016 10:56
[2016-10-13 12:06] VITALS: BP 133/70; PULSE 82; RESP 16; TEMP 97.6; O2SAT 96
[2016-10-14] MEDS ORDERED: PHARMACY ORDERED LAB ONE (12:45)
== END 2016-10-13 13:06 | disposition home or self-care (01) | DRG 982 ==
LOC: NEPE 11:48 → NEDA 13:26 → N04A 15:38
PROVIDERS: ADMIT Hospitalist; ATTEND Hospitalist
PROC: 0QBQ0ZZ Excision of Right Toe Phalanx, Open Approach (ICD-10-PCS; principal; 2016-10-11 14:44)
DX: L03.115 Cellulitis of right lower limb (principal); F33.1 Major depressive disorder, recurrent, moderate; I48.0 Paroxysmal atrial fibrillation; F03.90 Unspecified dementia, unspecified severity, without behavioral disturbance, psychotic disturbance, mood disturbance, and anxiety; J44.9 Chronic obstructive pulmonary disease, unspecified; I73.9 Peripheral vascular disease, unspecified; E11.9 Type 2 diabetes mellitus without complications; R20.0 Anesthesia of skin; E78.00 Pure hypercholesterolemia, unspecified; K21.9 Gastro-esophageal reflux disease without esophagitis; I10 Essential (primary) hypertension; Z79.4 Long term (current) use of insulin; K44.9 Diaphragmatic hernia without obstruction or gangrene; I25.10 Atherosclerotic heart disease of native coronary artery without angina pectoris; Z95.1 Presence of aortocoronary bypass graft; Z95.5 Presence of coronary angioplasty implant and graft; Z88.2 Allergy status to sulfonamides; Z87.891 Personal history of nicotine dependence; H91.90 Unspecified hearing loss, unspecified ear; R44.1 Visual hallucinations; F06.30 Mood disorder due to known physiological condition, unspecified
CPT/HCPCS: 70250; 70544; 70551; 71010; 73630; 73700; 80048; 80162; 80202; 80307; 82565; 82607; 82948; 83036; 83605; 83735; 84443; 85025; 85610; 85652; 85730; 86038; 86140; 86592; 87040; 93005; 96374; J1200; J1815; J2270; J2543; J3010; J3370; J7040; J7050

== ENCOUNTER 2017-04-20 17:17 | Observation (INO) | payer MEDICARE ==
[~2017-04-20] VITALS: Ht 188 cm; Wt 85.5 kg
[~2017-04-20 17:17] MED LIST changes: -ASPI1TAB69 PO; +ASPI81TA16 PO; +AUGM875T3 PO; +CENTCHW3 PO; -CENTTAB PO; +CHOL5000 PO; -CHOL50008 PO; +FLUO10CA4 PO; -FLUO20CA4 PO; +HALO0.5T PO; -NAPR220T95 PO; +OXYC1CAP PO
[2017-04-20 17:19] VITALS: BP 148/63; PULSE 92; RESP 16; TEMP 98; O2SAT 99
[2017-04-20 18:05] LABS: AUTOMATED NEUTROPHIL # 6.4 TH/MM3 (1.8-7.7); BASOPHIL # 0.1 TH/MM3 (0-0.2); BASOPHIL % 0.6 % (0.0-2.0); EOSINOPHIL # 0.1 TH/MM3 (0-0.4); EOSINOPHIL % 1.2 % (0.0-4.0); HEMATOCRIT 28.4 % (39.0-51.0); HEMO FLAGS DIFF FINAL; LYMPH % 18.4 % (9.0-44.0); LYMPHOCYTE # 1.6 TH/MM3 (1.0-4.8); MEAN CELL VOLUME 85.4 FL (80.0-100.0); MEAN CORPUSCULAR HEMOGLOBIN 30.1 PG (27.0-34.0); MEAN CORPUSCULAR HGB CONC 35.2 % (32.0-36.0); MONO % 4.7 % (0.0-8.0); NEUT % 75.1 % (16.0-70.0); PLATELET COUNT 211 TH/MM3 (150-450); RED BLOOD COUNT 3.32 MIL/MM3 (4.50-5.90); RED CELL DISTRIBUTION WIDTH 14.8 % (11.6-17.2); WHITE BLOOD COUNT 8.5 TH/MM3 (4.0-11.0)
--- NOTE | 2017-04-20 18:12 | RADRPT ---
EXAM DATE/TIME: 04/20/2017 17:58 [facility] COMPARISON: No previous studies available for comparison. INDICATIONS : Syncope. RADIATION DOSE: 35.20 CTDIvol (mGy) MEDICAL HISTORY : Cardiovascular disease. Hypertension. Chronic obstructive pulmonary disease. SURGICAL HISTORY : None. ENCOUNTER: Initial ACUITY: 1 day PAIN SCALE: 0/10 LOCATION: cranial TECHNIQUE: Multiple contiguous axial images were obtained of the head. Using automated exposure control and adj ustment of the mA and/or kV according to patient size, radiation dose was kept as low as reasonably a chievable to obtain optimal diagnostic quality images. DICOM format image data is available electro nically for review and comparison. FINDINGS: CEREBRUM: The ventricles are normal for age. No evidence of midline shift, mass lesion, hemorrhage or acute in farction. No extra-axial fluid collections are seen. POSTERIOR FOSSA: The cerebellum and brainstem are intact. The 4th ventricle is midline. The cerebellopontine angle i s unremarkable. EXTRACRANIAL: The visualized portion of the orbits is intact. SKULL: The calvaria is intact. No evidence of skull fracture. CONCLUSION: 1. No acute intracranial abnormalities. Yon Staton MD on April 20, 2017 at 18:10 Board Certified Radiologist. This report was verified electronically.
[2017-04-20 18:27] LABS: ALT (GPT) 37 U/L (12-78); ANION GAP 6 MEQ/L (5-15); AST (GOT) 26 U/L (15-37); BICARBONATE 29.7 MEQ/L (21.0-32.0); BLOOD UREA NITROGEN 13 MG/DL (7-18); CHLORIDE 103 MEQ/L (98-107); GLOMERULAR FILTRATION RATE 94 ML/MIN (>89); POTASSIUM 4.2 MEQ/L (3.5-5.1); SODIUM (NA) 139 MEQ/L (136-145)
[2017-04-20 18:30] LABS: ALKALINE PHOSPHATASE 79 U/L (45-117); APTT (PATIENT) 22.4 SEC (24.3-30.1); INTERNATIONAL NORMALIZED RATIO 1.1 RATIO; PROTHROMBIN TIME - PATIENT 10.9 SEC (9.8-11.6); TOTAL BILIRUBIN ADULT 0.8 MG/DL (0.2-1.0)
--- NOTE | 2017-04-20 18:37 | PD ---
HPI Chief Complaint: Syncope/Near-Syncope Time Seen by Provider: 18:10 Travel History International Travel<30 days: No Contact w/Intl Traveler<30days: No Traveled to known affect area: No History of Present Illness HPI 71yo M with PMH of CAD, PAD, DM, paroxysmal afib was sent to the ED for evaluation after brought him to walk in clinic today. As per his , he had 2 episodes of mumble speech that lasted 10-15 second. 4 days ago and yesterday. Said it has never happen before. Said his has been having weakness in his bilateral legs and more unsteady gait for a few months but worst for the last few days. Said he almost passed out but did not and she was able to grab him. Denies any fever, chest pain, sob, n/v, abdominal pain, numbness. Pt was admitted to [facility] [place] 10/03-10/13/16 for cellulitis after amputation of right third digit and had AMS/agitation and was seen by psych who thinks he has dementia. PFSH Past Medical History Hx Anticoagulant Therapy: Yes Autoimmune Disease: No Cancer: No Cardiovascular Problems: Yes High Cholesterol: Yes Chest Pain: No COPD: Yes Diabetes: Yes Endocrine: No Gastrointestinal Disorders: Yes (ACID REFLUX) Glaucoma: No Genitourinary: No Hepatitis: No Hiatal Hernia: Yes Hypertension: Yes Immune Disorder: No Neurologic: Yes (numbness in hand and feet) Psychiatric: No Reproductive: No Respiratory: Yes (COPD) Integumentary: No Thyroid Disease: No Past Surgical History Abdominal Surgery: Yes ("LINK OF INTESTINE REMOVED") AICD: No Body Medical Devices: stents in heart and legs Cardiac Surgery: Yes (cabage x3, 3 cardiac stents) Ear Surgery: No Eye Surgery: Yes (CATARACT) Joint Replacement: No Neurologic Surgery: No Oral Surgery: No Pacemaker: No Thoracic Surgery: Yes Other Surgery: Yes (toes) Social History Alcohol Use: No Tobacco Use: No (FORMER) Substance Use: No Allergies-Medications (Allergen,Severity, Reaction): Coded Allergies: Sulfa (Sulfonamide Antibiotics) (Unverified Allergy, Severe, Hives, ) Reported Meds & Prescriptions Reported Meds & Active Scripts Active Augmentin (Amoxicillin-Clavulanate) 875-125 Mg Tab 1 Tab PO BID Haloperidol 0.5 Mg Tab 0.5 Mg PO DAILY@1600 Fluoxetine (Pmdd) 10 Mg Cap 30 Mg PO DAILY Reported Oxycodone (Oxycodone HCl) 5 Mg Cap 5 Mg PO Q6H PRN Vitamin D3 (Cholecalciferol) 5,000 Unit Cap 5,000 Units PO MOWEFR Take 1 capsule daily on Tuesday,Tuesday and Tuesday Centrum Silver (Multiple Vitamins W/ Minerals) 1 Chw Chw 1 Tab PO DAILY Aspirin Adult Low Strength (Aspirin) 81 Mg Tabdr 81 Mg PO DAILY Metoprolol Tartrate 50 Mg Tab 50 Mg PO BID Fish Oil ([place]-3 Fatty Acids) 500 Mg Cap 500 Mg PO DAILY Prevacid 24Hr (Lansoprazole) 15 Mg Cap 15 Mg PO DAILY Novolin R Inj (Insulin Human Regular) 1,000 Unit/10 Ml Vial 0 SQ DIRECTED Sliding Scale As Directed. Lantus Inj (Insulin Glargine) 100 Unit/Ml Inj 50 Unit SQ BID Digoxin 0.125 Mg Tab 0.125 Mg PO DAILY Plavix (Clopidogrel Bisulfate) 75 Mg Tab 75 Mg PO HS Cilostazol 100 Mg Tab 100 Mg PO BID Atorvastatin (Atorvastatin Calcium) 40 Mg Tab 40 Mg PO HS Review of Systems Except as stated in HPI: all other systems reviewed are Neg Physical Exam Narrative GENERAL: 71yo M not in distress. SKIN: Focused skin assessment warm/dry. HEAD: Atraumatic. Normocephalic. EYES: Pupils equal and round. No scleral icterus. No injection or drainage. ENT: No nasal bleeding or discharge. Mucous membranes pink and moist. NECK: Trachea midline. No JVD. CARDIOVASCULAR: Regular rate and rhythm. No murmur appreciated. RESPIRATORY: No accessory muscle use. Clear to auscultation. Breath sounds equal bilaterally. GASTROINTESTINAL: Abdomen soft, non-tender, nondistended. MUSCULOSKELETAL: Right foot: s/p third toe amputation, c/d/i. DP 1+ bilaterally. NEUROLOGICAL: Awake and alert. AAOX3. No obvious cranial nerve deficits. Motor grossly within normal limits. Normal speech. Data Data Last Documented VS Vital Signs Date Time Temp Pulse Resp B/P (MAP) Pulse Ox O2 Delivery O2 Flow Rate FiO2 04/20/17 18:42 99 Room Air 04/20/17 17:19 98.0 92 16 148/63 (91) Orders Orders Electrocardiogram (04/20/17 17:30) Prothrombin Time / Inr (Pt) (04/20/17 17:30) Act Partial Throm Time (Ptt) (04/20/17 17:30) Complete Blood Count With Diff (04/20/17 17:30) Comprehensive Metabolic Panel (04/20/17 17:30) Creatine Kinase (Cpk) (04/20/17 17:30) Urinalysis - C+S If Indicated (04/20/17 17:30) Ct Brain W/O Iv Contrast(Rout) (04/20/17 17:30) Place In Observation (04/20/17 ) Vital Signs (Adult) Q4H (04/20/17 18:46) Neuro Checks Q4H (04/20/17 18:46) Activity Bed Rest (04/20/17 18:46) Bedside Glucose JESSICA.CSUGAR (04/20/17 18:46) [employer] / Telemetry .CONTINUOUS (04/20/17 18:46) Diet 1800 Ada Cons Carb (04/20/17 Dinner) Diet Heart Healthy (04/20/17 Dinner) Sodium Chloride 0.9% Flush (Ns Flush) (04/20/17 19:00) Sodium Chloride 0.9% Flush (Ns Flush) (04/20/17 21:00) Pt Request For Service (04/21/17 06:00) Speech Therapy Consult-Eval/Tx (04/20/17 18:46) Scd Bilateral/Knee High JESSICA.BID (04/20/17 18:46) Naloxone Inj (Narcan Inj) (04/20/17 19:00) Docusate Sodium-Senna (Joana-Colace) (04/20/17 21:00) Magnesium Hydroxide Liq (Milk Of Magnesi (04/20/17 19:00) Sennosides (Senokot) (04/20/17 19:00) Bisacodyl Supp (Dulcolax Supp) (04/20/17 19:00) Lactulose Liq (Lactulose Liq) (04/20/17 19:00) Admit Order (Ed Use Only) (04/20/17 19:06) Labs Laboratory Tests Test 04/20/17 17:45 White Blood Count 8.5 TH/MM3 Red Blood Count 3.32 MIL/MM3 Hemoglobin 10.0 GM/DL Hematocrit 28.4 % Mean Corpuscular Volume 85.4 FL Mean Corpuscular Hemoglobin 30.1 PG Mean Corpuscular Hemoglobin Concent 35.2 % Red Cell Distribution Width 14.8 % Platelet Count 211 TH/MM3 Mean Platelet Volume 7.7 FL Neutrophils (%) (Auto) 75.1 % Lymphocytes (%) (Auto) 18.4 % Monocytes (%) (Auto) 4.7 % Eosinophils (%) (Auto) 1.2 % Basophils (%) (Auto) 0.6 % Neutrophils # (Auto) 6.4 TH/MM3 Lymphocytes # (Auto) 1.6 TH/MM3 Monocytes # (Auto) 0.4 TH/MM3 Eosinophils # (Auto) 0.1 TH/MM3 Basophils # (Auto) 0.1 TH/MM3 CBC Comment DIFF FINAL Differential Comment Prothrombin Time 10.9 SEC Prothromb Time International Ratio 1.1 RATIO Activated Partial Thromboplast Time 22.4 SEC Blood Urea Nitrogen 13 MG/DL Creatinine 0.81 MG/DL Random Glucose 131 MG/DL Total Protein 6.9 GM/DL Albumin 4.0 GM/DL Calcium Level 9.0 MG/DL Alkaline Phosphatase 79 U/L Aspartate Amino Transf (AST/SGOT) 26 U/L Alanine Aminotransferase (ALT/SGPT) 37 U/L Total Bilirubin 0.8 MG/DL Sodium Level 139 MEQ/L Potassium Level 4.2 MEQ/L Chloride Level 103 MEQ/L Carbon Dioxide Level 29.7 MEQ/L Anion Gap 6 MEQ/L Estimat Glomerular Filtration Rate 94 ML/MIN Total Creatine Kinase 75 U/L MDM Medical Decision Making Medical Screen Exam Complete: Yes Emergency Medical Condition: Yes Interpretation(s) EKG: AFib at 82bpm. TWI I. Mild ST depression V5, V6. QTc 405ms. Differential Diagnosis Dementia vs. TIA vs. arrhythmia Narrative Course 71yo M with CAD, PAD, paroxysmal afib here with possible TIA. Pt had 2 episodes where he had incomprehensible speech that lasted about 10-15 seconds. Last episode of was yesterday. It could be his dementia but needs to r/o TIA. Labs reviewed, no leukocytosis. H/H mildly decreased at 10/28.4. Glucose 131. CMP unremarkable. Discussed with Dr. Sheppard and accepted to Dr. Fernandez's service. Diagnosis Primary Impression: TIA (transient ischemic attack) Qualified Codes: G45.9 - Transient cerebral ischemic attack, unspecified Admitting Information Admitting Physician Requests: Observation Miladis Silva DO Apr 20, 2017 18:37
[2017-04-20 18:54] LABS: CREATINE KINASE 75 U/L (39-308)
[2017-04-20] MEDS ORDERED: LACTULOSE SYRUP 20 GM/30 ML CUP PO PRN (19:00)
[2017-04-20] MEDS ORDERED: NALOXONE HCL 0.4 MG/ML AMP IV PUSH PRN (19:00)
[2017-04-20] MEDS ORDERED: BISACODYL 10 MG SUPP RECTAL PRN (19:00)
[2017-04-20] MEDS ORDERED: SODIUM CHLORIDE 0.9% FLUSH 10 ML FLUSH IV FLUSH PRN (19:00)
[2017-04-20] MEDS ORDERED: MAGNESIUM HYDROXIDE SUSP 30 ML CUP PO PRN (19:00)
[2017-04-20] MEDS ORDERED: SENNOSIDES 8.6 MG TAB PO PRN (19:00)
[2017-04-20 20:23] LABS: BLOOD, URINE NEG (NEG); GLUCOSE,URINE NEG (NEG); KETONE, URINE NEG (NEG); NITRITE,URINE NEG (NEG); PH, URINE 6.5 (5.0-8.5); URINE COLOR LIGHT-YELLOW (YELLW/STRAW)
[2017-04-20 20:30] LABS: COMMENT (UR) CATH-CULT NOT IND; CULTURE IF INDICATED CATH CULTURE NOT IND
[2017-04-20 20:52] VITALS: BP 138/65; PULSE 76; RESP 18; TEMP 97.7; O2SAT 100
[2017-04-20] MEDS: DOCUSATE SODIUM 50 MG/SENNA 8.6 MG TAB PO SCH (21:00)
[2017-04-20] MEDS: INSULIN DETEMIR 100 UNITS/ML VIAL SQ SCH ×2 (21:00→21:50)
[2017-04-20] MEDS: METOPROLOL TARTRATE 50 MG TAB PO SCH (21:49)
[2017-04-20] MEDS: CLOPIDOGREL 75 MG TAB PO SCH (21:49)
[2017-04-20] MEDS: ATORVASTATIN 40 MG TAB PO SCH (21:49)
[2017-04-20] MEDS: SODIUM CHLORIDE 0.9% FLUSH 10 ML FLUSH IV FLUSH SCH (21:50)
--- NOTE | 2017-04-20 22:03 | HHI.HP ---
HPI Service [facility] Hospitalists Primary Care Physician Ismael Gibbons D.O. Admission Diagnosis Possible TIA Chief Complaint: increasing difficulty ambulating progressed over weeks and 2 episodes of slurring speech with near syncopal episodes Travel History International Travel<30 Days: No Contact w/Intl Traveler <30 Da: No Traveled to Known Affected Are: No History of Present Illness 71yo M with PMH of CAD, PAD, DM, paroxysmal afib was sent to the ED for evaluation after brought him to walk in clinic today. As per his , he had 2 episodes of mumble speech that lasted 10-15 second. 4 days ago and yesterday. Said it has never happen before. Said his has been having weakness in his bilateral legs and more unsteady gait for a few months but worst for the last few days. Said he almost passed out but did not and she was able to grab him. Denies any fever, chest pain, sob, n/v, abdominal pain, numbness. Pt was admitted to [facility] 10/03-10/13/16 for cellulitis after amputation of right third digit and had AMS/agitation and was seen by psych who thinks he has dementia. Patient in 09/22 had MRI brain and MRA no significant abnormalities at that time . Patient with hx controlled afib and had been on coumadin many years ago according to patient but he states his better historian. PFSH Review of Systems Other weakness,near passing out more forgetful 2 episodes of slurred speech Past Family Social History Past Medical History hyperlipidemia,cad,a fib,copd,dm,reflux,htn diabetic peripheral neuropathy and had pad Past Surgical History intestine surgery stent cardiac and peripheral artery, cabg times 3 cataract 4th toe rt foot amputation 09/22 Reported Medications Augmentin (Amoxicillin-Clavulanate) 875-125 Mg Tab 1 Tab PO BID Haloperidol 0.5 Mg Tab 0.5 Mg PO DAILY@1600 Fluoxetine (Pmdd) 10 Mg Cap 30 Mg PO DAILY Reported Oxycodone (Oxycodone HCl) 5 Mg Cap 5 Mg PO Q6H PRN Vitamin D3 (Cholecalciferol) 5,000 Unit Cap 5,000 Units PO MOWEFR Take 1 capsule daily on Tuesday,Tuesday and Tuesday Centrum Silver (Multiple Vitamins W/ Minerals) 1 Chw Chw 1 Tab PO DAILY Aspirin Adult Low Strength (Aspirin) 81 Mg Tabdr 81 Mg PO DAILY Metoprolol Tartrate 50 Mg Tab 50 Mg PO BID Fish Oil ([place]-3 Fatty Acids) 500 Mg Cap 500 Mg PO DAILY Prevacid 24Hr (Lansoprazole) 15 Mg Cap 15 Mg PO DAILY Novolin R Inj (Insulin Human Regular) 1,000 Unit/10 Ml Vial 0 SQ DIRECTED Sliding Scale As Directed. Lantus Inj (Insulin Glargine) 100 Unit/Ml Inj 50 Unit SQ BID Digoxin 0.125 Mg Tab 0.125 Mg PO DAILY Plavix (Clopidogrel Bisulfate) 75 Mg Tab 75 Mg PO HS Cilostazol 100 Mg Tab 100 Mg PO BID Atorvastatin (Atorvastatin Calcium) 40 Mg Tab 40 Mg PO HS Allergies: Coded Allergies: Sulfa (Sulfonamide Antibiotics) (Unverified Allergy, Severe, Hives, ) Social History former smoker years ago Physical Exam Vital Signs Vital Signs Date Time Temp Pulse Resp B/P (MAP) Pulse Ox O2 Delivery O2 Flow Rate FiO2 04/20/17 20:52 97.7 76 18 138/65 (89) 100 04/20/17 20:16 04/20/17 18:42 99 Room Air 04/20/17 17:19 98.0 92 16 148/63 (91) 99 Physical Exam GENERAL: This is a well-nourished, well-developed patient, in no apparent distress. SKIN: No rashes, ecchymoses or lesions. Cool and dry. HEAD: Atraumatic. Normocephalic. No temporal or scalp tenderness. EYES: Pupils equal round and reactive. Extraocular motions intact. No scleral icterus. No injection or drainage. ENT: Nose without bleeding, purulent drainage or septal hematoma. Throat without erythema, tonsillar hypertrophy or exudate. Uvula midline. Airway patent. NECK: Trachea midline. No JVD or lymphadenopathy. Supple, nontender, no meningeal signs. CARDIOVASCULAR: Regular rate and rhythm without murmurs, gallops, or rubs. RESPIRATORY: Clear to auscultation. Breath sounds equal bilaterally. No wheezes , rales, or rhonchi. GASTROINTESTINAL: Abdomen soft, non-tender, nondistended. No hepato-splenomegaly , or palpable masses. No guarding. MUSCULOSKELETAL: Extremities without clubbing, cyanosis, or edema. No joint tenderness, effusion, or edema noted. No calf tenderness. Negative Homans sign bilaterally.amputation rt 4th toe NEUROLOGICAL: Awake and alert. Cranial nerves II through XII intact. Motor and sensory grossly within normal limits. Five out of 5 muscle strength in all muscle groups. Normal speech. Laboratory Laboratory Tests Test 04/20/17 17:45 04/20/17 20:05 White Blood Count 8.5 Red Blood Count 3.32 Hemoglobin 10.0 Hematocrit 28.4 Mean Corpuscular Volume 85.4 Mean Corpuscular Hemoglobin 30.1 Mean Corpuscular Hemoglobin Concent 35.2 Red Cell Distribution Width 14.8 Platelet Count 211 Mean Platelet Volume 7.7 Neutrophils (%) (Auto) 75.1 Lymphocytes (%) (Auto) 18.4 Monocytes (%) (Auto) 4.7 Eosinophils (%) (Auto) 1.2 Basophils (%) (Auto) 0.6 Neutrophils # (Auto) 6.4 Lymphocytes # (Auto) 1.6 Monocytes # (Auto) 0.4 Eosinophils # (Auto) 0.1 Basophils # (Auto) 0.1 CBC Comment DIFF FINAL Differential Comment Prothrombin Time 10.9 Prothromb Time International Ratio 1.1 Activated Partial Thromboplast Time 22.4 Blood Urea Nitrogen 13 Creatinine 0.81 Random Glucose 131 Total Protein 6.9 Albumin 4.0 Calcium Level 9.0 Alkaline Phosphatase 79 Aspartate Amino Transf (AST/SGOT) 26 Alanine Aminotransferase (ALT/SGPT) 37 Total Bilirubin 0.8 Sodium Level 139 Potassium Level 4.2 Chloride Level 103 Carbon Dioxide Level 29.7 Anion Gap 6 Estimat Glomerular Filtration Rate 94 Total Creatine Kinase 75 Urine Color LIGHT-YELLOW Urine Turbidity CLEAR Urine pH 6.5 Urine Specific [place] 1.002 Urine Protein NEG Urine Glucose (UA) NEG Urine Ketones NEG Urine Occult Blood NEG Urine Nitrite NEG Urine Bilirubin NEG Urine Urobilinogen LESS THAN 2.0 Urine Leukocyte Esterase NEG Urine WBC LESS THAN 1 Microscopic Urinalysis Comment CATH-CULT NOT IND Result Diagram: 04/20/17 1745 04/20/17 174 Imaging Last [address] 04/20/171729 Signed Impressions: Service Date/Time: Thursday, April 20, 2017 17:58 - CONCLUSION: 1. No acute intracranial abnormalities. Yon Staton MD Course ekg a fib controlled ventricular response Caprini VTE Risk Assessment Caprini VTE Risk Assessment: Mod/High Risk (score >= 2) Caprini Risk Assessment Model Point Value = 1 Point Value = 2 Point Value = 3 Point Value = 5 Age 41-60 Minor surgery BMI > 25 kg/m2 Swollen legs Varicose veins or History of unexplained or recurrent spontaneous Oral contraceptives or hormone replacement Sepsis (< 1 month) Serious lung disease, including pneumonia (< 1 month) Abnormal pulmonary function Acute myocardial infarction Congestive heart failure (< 1 month) History of inflammatory bowel disease Medical patient at bed rest Age 61-74 Arthroscopic surgery Major open surgery (> 45 min) Laparoscopic surgery (> 45 min) Malignancy Confined to bed (> 72 hours) Immobilizing plaster cast Central venous access Age >= 75 History of VTE Family history of VTE Factor V Leiden Prothrombin [id number] Lupus anticoagulant Anticardiolipin antibodies Elevated serum homocysteine Heparin-induced thrombocytopenia Other congenital or acquired thrombophilia Stroke (< 1 month) Elective arthroplasty Hip, pelvis, or leg fracture Acute spinal cord injury (< 1 month) Prophylaxis Regimen Total Risk Factor Score Risk Level Prophylaxis Regimen 0-1 Low Early ambulation 2 Moderate Order ONE of the following: *Sequential Compression Device (SCD) *Heparin 5000 units SQ BID 3-4 Higher Order ONE of the following medications: *Heparin 5000 units SQ TID *Enoxaparin/Lovenox 40 mg SQ daily (WT < 150 kg, CrCl > 30 mL/min) *Enoxaparin/Lovenox 30 mg SQ daily (WT < 150 kg, CrCl > 10-29 mL/min) *Enoxaparin/Lovenox 30 mg SQ BID (WT < 150 kg, CrCl > 30 mL/min) AND/OR *Sequential Compression Device (SCD) 5 or more Highest Order ONE of the following medications: *Heparin 5000 units SQ TID (Preferred with Epidurals) *Enoxaparin/Lovenox 40 mg SQ daily (WT < 150 kg, CrCl > 30 mL/min) *Enoxaparin/Lovenox 30 mg SQ daily (WT < 150 kg, CrCl > 10-29 mL/min) *Enoxaparin/Lovenox 30 mg SQ BID (WT < 150 kg, CrCl > 30 mL/min) AND *Sequential Compression Device (SCD) Assessment and Plan Problem List: (1) TIA (transient ischemic attack) ICD Codes: G45.9 - Transient cerebral ischemic attack, unspecified Status: Acute Plan: symptoms possibly suggest tia is on plavix and asa will continue for now last MRI 6 months ago but the two episodes of slurred speech may be related to a TIA monitor for now (2) Weakness of both lower extremities ICD Codes: R29.898 - Other symptoms and signs involving the musculoskeletal system Plan: progressive weakness to lower extremities -will get PT to evaluate (3) Paroxysmal atrial fibrillation ICD Codes: I48.0 - Paroxysmal atrial fibrillation Status: Acute Plan: may need cardiac evaluation if patient did have TIA may require changing anticoagulation will monitor (4) Diabetes ICD Codes: E11.9 - Type 2 diabetes mellitus without complications Status: Chronic Plan: continue insulin and sliding scale Assessment and Plan further plan as case develops ,can learn more on review old records and talking to patient Code Status full Discussed Condition With patient Problem Qualifiers (1) TIA (transient ischemic attack): Qualified Codes: G45.9 - Transient cerebral ischemic attack, unspecified Carlin Tang MD Apr 20, 2017 22:03
--- NOTE | 2017-04-20 23:02 | RADRPT ---
EXAM DATE/TIME: 04/20/2017 22:27 [facility] COMPARISON: No previous studies available for comparison. INDICATIONS : TIA. MEDICAL HISTORY : Hypertension. Dementia. Diabetes mellitus type 2. SURGICAL HISTORY : CABG Carotid endarterectomy. Colon resection. Metatarsal removal, Femoral bypass graft. ENCOUNTER: Initial ACUITY: 1 day PAIN SCORE: 2/10 LOCATION: Bilateral cranial TECHNIQUE: Multiplanar, multisequence MRI of the brain was performed without contrast. FINDINGS: CEREBRUM: The ventricles are normal for age. No evidence of midline shift, mass lesion, hemorrhage or acute in farction. No extraaxial fluid collections are seen. The pituitary gland and suprasellar cistern are normal in configuration. WHITE MATTER: Moderate signal abnormalities are seen in the white matter. POSTERIOR FOSSA: The cerebellum and brainstem are intact. The 4th ventricle is midline. The cerebellopontine angle is unremarkable. The cerebellar tonsils are normal in position. DIFFUSION IMAGING: No focal areas of restricted diffusion are seen. No evidence of acute infarction. EXTRACRANIAL: The visualized portions of the orbits and paranasal sinuses are unremarkable. CONCLUSION: 1. No acute findings. Moderate white matter ischemic changes similar to October 06. Yon Staton MD on April 20, 2017 at 22:58 Board Certified Radiologist. This report was verified electronically.
[2017-04-20] MEDS: CILOSTAZOL 100 MG TAB PO SCH (23:12)
[2017-04-21] VITALS (14 sets, daily range): BP systolic 93–140; BP diastolic 53–71; PULSE 68–101; RESP 16–20; TEMP 95.6–98; O2SAT 97–100
[2017-04-21] MEDS: INSULIN NovoLIN REGULAR SUPPLEMENTAL SCALE SQ SCH ×4 (08:00→21:00)
[2017-04-21] MEDS: INSULIN DETEMIR 100 UNITS/ML VIAL SQ SCH ×2 (09:00→21:53)
[2017-04-21] MEDS: DIGOXIN 0.125 MG TAB PO SCH (09:31)
[2017-04-21] MEDS: ASPIRIN EC 81 MG TABEC PO SCH (09:31)
[2017-04-21] MEDS: PANTOPRAZOLE SOD 20 MG DELAYED RELEASE TAB PO SCH (09:31)
[2017-04-21] MEDS: SODIUM CHLORIDE 0.9% FLUSH 10 ML FLUSH IV FLUSH SCH ×2 (09:31→21:48)
[2017-04-21] MEDS: FLUoxetine HCL 10 MG CAP PO SCH (09:31)
[2017-04-21] MEDS: MULTIVITAMINS/MINERALS THERAPEUTIC TAB PO SCH (09:32)
[2017-04-21] MEDS: DOCUSATE SODIUM 50 MG/SENNA 8.6 MG TAB PO SCH ×2 (09:32→21:00)
[2017-04-21] MEDS: METOPROLOL TARTRATE 50 MG TAB PO SCH ×2 (09:32→21:48)
--- NOTE | 2017-04-21 10:01 | HHI.PR ---
Subjective Remarks Pt is awake and alert, oriented to person, place and time His is at the bedside. Long discussion with the pt and his this morning. She reports that for the last 6 weeks the patient has not had much appetite, weight loss (Approx 9lbs) and has been sleeping upwards of 18 hours per day The pt states that he has been very depressed and worried a lot lately. Around 5 days ago the pt had an episode of weakness in the lower extremities where he couldn't hold himself up while ambulating and his lowered him to the floor and during this episode he had somewhat garbled speech for about 10-15 seconds. This same thing occurred 2 days ago. His reports that after the first episode occurred she checked his BS which was in the 120's and his BP and pulse. The BP was in the 130's systolic and his pulse was somewhat erratic going from 80's to 110's. She took the pt to an urgent care yesterday who recommended that he go to the ED for further evaluation. During his last admission in 09/2016 he had issues with AMS/agitation and hallucinations. According to the discharge summary, the pts had expressed at that time that the pt had had changes over the previous 6 months to include more forgetfulness, agitates easily, paranoid and misplaces things which had worsened with the infection. There is no obvious metabolic reason or drug. MRI/A was negative for CVA. It was felt likely that the patient has underlying dementia. Psych was consulted and they agreed that the pt has dementia with psychosis with visual hallucination and also thought he was experiencing some depression. Pt was started on Haldol 0.5mg po daily and his Prozac was increased to 30mg po daily. They had been seen by his PCP after his last admission in 09/2016 and he has continued on the Haldol 0.5mg daily and around a month ago they tried going up on his dose of Prozac to 40mg daily but the pt felt "weird " on the high dose and this was taken back down to 30mg daily. Pt has not followed up with psychiatry as an outpt because he felt the psychiatrist he saw during his last admission was "tricking" him. Pts workup thus far is unrevealing as to an metabolic issues that could have caused these episodes. Objective Vitals Vital Signs Date Time Temp Pulse Resp B/P (MAP) Pulse Ox O2 Delivery O2 Flow Rate FiO2 04/21/17 08:11 95.9 80 20 140/71 (94) 97 04/21/17 05:03 98.0 88 18 112/54 (73) 98 04/21/17 05:00 71 04/21/17 00:45 98.0 76 18 93/53 (66) 97 04/21/17 00:11 74 04/20/17 20:52 97.7 76 18 138/65 (89) 100 04/20/17 20:16 04/20/17 18:42 99 Room Air 04/20/17 17:19 98.0 92 16 148/63 (91) 99 Result Diagram: 04/20/17 1745 04/20/17 1745 Other Results Laboratory Tests Test 04/20/17 17:45 04/20/17 20:05 White Blood Count 8.5 TH/MM3 Red Blood Count 3.32 MIL/MM3 Hemoglobin 10.0 GM/DL Hematocrit 28.4 % Mean Corpuscular Volume 85.4 FL Mean Corpuscular Hemoglobin 30.1 PG Mean Corpuscular Hemoglobin Concent 35.2 % Red Cell Distribution Width 14.8 % Platelet Count 211 TH/MM3 Mean Platelet Volume 7.7 FL Neutrophils (%) (Auto) 75.1 % Lymphocytes (%) (Auto) 18.4 % Monocytes (%) (Auto) 4.7 % Eosinophils (%) (Auto) 1.2 % Basophils (%) (Auto) 0.6 % Neutrophils # (Auto) 6.4 TH/MM3 Lymphocytes # (Auto) 1.6 TH/MM3 Monocytes # (Auto) 0.4 TH/MM3 Eosinophils # (Auto) 0.1 TH/MM3 Basophils # (Auto) 0.1 TH/MM3 CBC Comment DIFF FINAL Differential Comment Prothrombin Time 10.9 SEC Prothromb Time International Ratio 1.1 RATIO Activated Partial Thromboplast Time 22.4 SEC Blood Urea Nitrogen 13 MG/DL Creatinine 0.81 MG/DL Random Glucose 131 MG/DL Total Protein 6.9 GM/DL Albumin 4.0 GM/DL Calcium Level 9.0 MG/DL Alkaline Phosphatase 79 U/L Aspartate Amino Transf (AST/SGOT) 26 U/L Alanine Aminotransferase (ALT/SGPT) 37 U/L Total Bilirubin 0.8 MG/DL Sodium Level 139 MEQ/L Potassium Level 4.2 MEQ/L Chloride Level 103 MEQ/L Carbon Dioxide Level 29.7 MEQ/L Anion Gap 6 MEQ/L Estimat Glomerular Filtration Rate 94 ML/MIN Total Creatine Kinase 75 U/L Urine Color LIGHT-YELLOW Urine Turbidity CLEAR Urine pH 6.5 Urine Specific [place] 1.002 Urine Protein NEG mg/dL Urine Glucose (UA) NEG mg/dL Urine Ketones NEG mg/dL Urine Occult Blood NEG Urine Nitrite NEG Urine Bilirubin NEG Urine Urobilinogen LESS THAN 2.0 MG/DL Urine Leukocyte Esterase NEG Urine WBC LESS THAN 1 /hpf Microscopic Urinalysis Comment CATH-CULT NOT IND Imaging Last Impressions Head CT 04/20/17 1730 Signed Impressions: Service Date/Time: Thursday, April 20, 2017 17:58 - CONCLUSION: 1. No acute intracranial abnormalities. Yon Staton MD Brain MRI 04/20/17 0000 Signed Impressions: Service Date/Time: Thursday, April 20, 2017 22:27 - CONCLUSION: 1. No acute findings. Moderate white matter ischemic changes similar to October 06. Yon Staton MD Objective Remarks General: NAD, AAOx3 Chest: CTA Cardiac: Irregular Abd: +BS, soft ND/NT Ext: No edema, right foot 3 digit amputation site is healed well. A/P Problem List: (1) Transient speech disturbance ICD Codes: R47.9 - Unspecified speech disturbances Status: Acute Plan: Pt is a 71 y/o male with diabetes, paroxysmal atrial fibrillation, and peripheral artery disease. He was brought to the ED on 04/20/17 with complaints of speech difficulty, LE weakness x 2 episodes. Transient speech difficulty LE weakness Weight loss/poor appetite Depression - Pts reports that for the last 6 weeks the patient has not had much appetite, weight loss (Approx 9lbs) and has been sleeping upwards of 18 hours per day The pt states that he has been very depressed and worried a lot lately. - Around 5 days ago the pt had an episode of weakness in the lower extremities where he couldn't hold himself up while ambulating and his lowered him to the floor and during this episode he had somewhat garbled speech for about 10-15 seconds. This same thing occurred 2 days ago. His reports that after the first episode occurred she checked his BS which was in the 120's and his BP and pulse. The BP was in the 130's systolic and his pulse was somewhat erratic going from 80's to 110's. - She took the pt to an urgent care yesterday who recommended that he go to the ED for further evaluation. - During his last admission in 09/2016 he had issues with AMS/agitation and hallucinations. According to the discharge summary, the pts had expressed at that time that the pt had had changes over the previous 6 months to include more forgetfulness, agitates easily, paranoid and misplaces things which had worsened with the infection. There is no obvious metabolic reason or drug. MRI/A was negative for CVA. It was felt likely that the patient has underlying dementia. Psych was consulted and they agreed that the pt has dementia with psychosis with visual hallucination and also thought he was experiencing some depression. Pt was started on Haldol 0.5mg po daily and his Prozac was increased to 30mg po daily. They had been seen by his PCP after his last admission in 09/2016 and he has continued on the Haldol 0.5mg daily and around a month ago they tried going up on his dose of Prozac to 40mg daily but the pt felt "weird" on the high dose and this was taken back down to 30mg daily. - Pt has not followed up with psychiatry as an outpt because he felt the psychiatrist he saw during his last admission was "tricking" him. - Pts workup thus far is unrevealing as to an metabolic issues that could have caused these episodes. - Cannot completely r/o TIA - CT Head was negative for any acute abnormality - MRI Brain was negative for any acute findings. Moderate white matter ischemic changes similar to October 06. - BMP was WNL - Pt slightly more anemic than previous labs but no evidence of any GIB - UA was negative. - Pt with known A. fib and is currently in A. fib - He is on ASA/Plavix and Pletal - Check Carotid US - Cont. Haldol and Prozac - PT evaluation Paroxysmal A. fib - Cont. Metoprolol 50mg po BID - Check Dig level - Dig was continued at admission - Cont. ASA Diabetes - Pt takes Lantus 50units BID and Novolin R 6-8 units TID - His states that his blood sugars have still been running in the 200- 300s despite his poor appetite and decreased oral intake - She has been giving him Glucerna 1-2 drinks per day at home - Pt may need adjustments to his medications if his needs have changed with his recent weight loss Peripheral vascular disease - Cont. Pletal/Plavix GERD - Cont. PPI (2) Weakness of both lower extremities ICD Codes: R29.898 - Other symptoms and signs involving the musculoskeletal system Plan: - See above (3) Paroxysmal atrial fibrillation ICD Codes: I48.0 - Paroxysmal atrial fibrillation Status: Acute Plan: - See above (4) Diabetes ICD Codes: E11.9 - Type 2 diabetes mellitus without complications Status: Chronic Plan: - See above Assessment and Plan Patient examined. Assessment and plan formulated with Carol Loco PA-C. I agree with the above. concern for tia sx's and slurring speech. resolved cta carotids to see if any significant dz. concern for embolic dz given afib. he has peripheral vascular dz and on asa/plavix. will decide with his insurance associate if we should stop plavix and add eliquis. Problem Qualifiers (1) Diabetes: Carol Loco Apr 21, 2017 10:01 Fish Fernandez MD Apr 21, 2017 14:16
[2017-04-21] MEDS: CILOSTAZOL 100 MG TAB PO SCH ×2 (10:25→21:49)
--- NOTE | 2017-04-21 12:19 | RADRPT ---
EXAM DATE/TIME: 04/21/2017 10:37 [facility] COMPARISON: No previous studies available for comparison. INDICATIONS : Speech difficulty. MEDICAL HISTORY : Myocardial infarction. Hypercholesterolemia. Anticoagulant therapy. Atrial fibrillation. Hypternsio n. COPD. GERD. Hiatal hernia. Diabetes. Dementia. SURGICAL HISTORY : Bilateral carotid endarterectomy. Cataract surgery. CABG. Bowel resection. 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 ENCOUNTER: Initial ACUITY: 1 day PAIN SCORE: 0/10 LOCATION: Bilateral neck PEAK SYSTOLIC VELOCITIES (cm/sec): ICA/CCA RATIO: Right: 1.8 Left: 1.4 ICA: Right: 160 Left: 161 CCA: Right: 89 Left: 142 ECA: Right: 234 Left: 188 VERTEBRAL: Right: 102 antegrade Left: 64 antegrade Elevated flow velocities and ICA/CCA ratios have been found to correlate with increased degrees of vessel stenosis, calculated as percentage of diameter relative to a normal segment of distal ICA/CCA FINDINGS: The peak systolic velocities of the internal carotid arteries are elevated and suggest 50-69% stenose s although the ICA/CCA ratio is not elevated in this range. CTA of the carotids would be helpful for evaluation of these somewhat discordant findings. There is also elevation of the peak systolic veloci ties of the external carotid arteries bilaterally (right worse than left) suggestive of greater than 70% stenosis on the right and 50-69% stenosis on the left. There is antegrade flow within the vertebr al arteries bilaterally. CONCLUSION: 1. Elevated peak systolic velocities of the internal carotid arteries suggesting 50-69% stenoses alth ough the ICA/CCA ratios are not elevated in this range. CTA of the carotids would be helpful for furt her evaluation of these somewhat discordant findings. 2. Elevation of the peak systolic velocities in the external carotid arteries bilaterally (right wors e than left) suggestive of greater than 70% stenosis on the right and 50-69% stenosis on the left. Abner Kenyon MD on April 21, 2017 at 12:13 Board Certified Radiologist. This report was verified electronically.
[2017-04-21] MEDS ORDERED: IOHEXOL 350 MG/ML 10 ML VIAL (for RAD DIAG) IVCONTRAST ONE (14:00)
--- NOTE | 2017-04-21 14:06 | EKG ---
Date Performed: 04/20/2017 Time Performed: 19:08:36 PTAGE: 71 years EKG: ATRIAL FIBRILLATION NONSPECIFIC ST & T-WAVE ABNORMALITY ABNORMAL RHYTHM ECG Compared to candi or tracing no significant change PREVIOUS TRACING : 10/03/2016 13.38 DOCTOR: Holly Lundberg Interpretating Date/Time 04/21/2017 14:04:05
[2017-04-21] MEDS ORDERED: HALOPERIDOL 0.5 MG TAB PO SCH (16:00)
--- NOTE | 2017-04-21 16:07 | RADRPT ---
EXAM DATE/TIME: 04/21/2017 14:30 [facility] COMPARISON: No previous studies available for comparison. INDICATIONS : Transient speech difficulty . IV CONTRAST: 74 cc Omnipaque 350 (iohexol) IV ; Cumulative dose for multiple exams. RADIATION DOSE: 77.88 CTDIvol (mGy) ; Combined studies MEDICAL HISTORY : Cardiovascular disease. Hyperthyroidism. Chronic obstructive pulmonary disease.Diabetes II SURGICAL HISTORY : Coronary artery stent. ENCOUNTER: Initial ACUITY: 2 days PAIN SCALE: 1/10 LOCATION: Bilateral cranial TECHNIQUE: Volumetric scanning was performed using a multi-row detector CT scanner. The data was post processed with a variety of visualization algorithms including full volume maximum intensity projection, multi -planar sliding thin slab reformation, curved planar reformation, and surface rendering techniques. Using automated exposure control and adjustment of the mA and/or kV according to patient size, radiat ion dose was kept as low as reasonably achievable to obtain optimal diagnostic quality images. DICO M format image data is available electronically for review and comparison. FINDINGS: Anterior circulation: Distal intracranial internal carotid arteries are patent with flow extending to the middle and anteri or cerebral arteries. There is no evidence for aneurysm, vessel truncation or stenosis, and no eviden ce for vascular malformation. Posterior circulation: Symmetric distal vertebral arteries with flow extending to basilar artery. Prominent patent bilatera l P-comms. There is no evidence for aneurysm, vessel truncation or stenosis, and no evidence for vasc ular malformation. CONCLUSION: 1. Unremarkable head CTA examination. Specifically, no evidence for large vessel occlusion. Landry Galeas MD on April 21, 2017 at 15:58 Board Certified Radiologist. This report was verified electronically.
--- NOTE | 2017-04-21 17:20 | RADRPT ---
EXAM DATE/TIME: 04/21/2017 14:30 [facility] COMPARISON: No previous studies available for comparison. INDICATIONS : Transient difficulty with speech possible. TIA IV CONTRAST: 74 cc Omnipaque 350 (iohexol) IV ; Cumulative dose for multiple exams. RADIATION DOSE: 77.88 CTDIvol (mGy) ; Combined studies - Brain/Cervical Spine MEDICAL HISTORY : Cardiovascular disease. Hypertension. Chronic obstructive pulmonary disease.Diabetes II SURGICAL HISTORY : Coronary artery stent. ENCOUNTER: Initial ACUITY: 1 day PAIN SCALE: 0/10 LOCATION: Bilateral neck Elevated flow velocities and ICA/CCA ratios have been found to correlate with increased degrees of vessel stenosis, calculated as percentage of diameter relative to a normal segment of distal ICA/CCA. TECHNIQUE: Volumetric scanning was performed using a multirow detector CT scanner. The data was post processed with a variety of visualization algorithms including full-volume maximum intensity projection, multip lanar sliding thin-slab reformation, curved-planar reformation, and surface-rendering techniques. Us ing automated exposure control and adjustment of the mA and/or kV according to patient size, radiatio n dose was kept as low as reasonably achievable to obtain optimal diagnostic quality images. DICOM f ormat image data is available electronically for review and comparison. FINDINGS: AORTIC ARCH: There is a three-vessel origin of the great vessels from the aorta. Heavily calcified plaque is ident ified in the aortic arch along the origin of the great vessels. There is mild narrowing at the origin of the innominate and left subclavian arteries. RIGHT CAROTID: Mild luminal irregularity is evident about the right carotid system. There is moderate narrowing in t he proximal external carotid artery. The common carotid artery and internal carotid artery are widely patent without significant stenosis. LEFT CAROTID: Luminal irregularity with eccentric plaque is identified in the left carotid bifurcation. There is mi ld narrowing in the distal left common carotid artery prior to bifurcation. The left carotid system i s otherwise patent without significant stenosis. VERTEBRALS: The right vertebral artery is small. The left vertebral artery is dominant and contains heavily calci fied plaque at its origin. Moderate to severe stenosis is suspected. CONCLUSION: 1. Noncalcified and calcified plaque in the carotid bifurcations without evidence of hemodynamically significant stenosis. 2. Heavily calcified plaque along the aortic arch without significant stenosis involving the great ve ssels. 3. Heavily calcified plaque at the origin of the left vertebral artery with suspected significant kevin nosis. Heriberto Bay MD on April 21, 2017 at 17:11 Board Certified Radiologist. This report was verified electronically.
[2017-04-21] MEDS: ATORVASTATIN 40 MG TAB PO SCH (21:48)
[2017-04-21] MEDS: CLOPIDOGREL 75 MG TAB PO SCH (21:49)
[2017-04-22 00:04] VITALS: PULSE 75
[2017-04-22 04:07] VITALS: PULSE 78
[2017-04-22 04:51] VITALS: BP 98/55; PULSE 68; RESP 18; TEMP 97.9; O2SAT 97
[2017-04-22] MEDS: INSULIN NovoLIN REGULAR SUPPLEMENTAL SCALE SQ SCH (08:00)
[2017-04-22] MEDS: PANTOPRAZOLE SOD 20 MG DELAYED RELEASE TAB PO SCH (08:09)
[2017-04-22] MEDS: ASPIRIN EC 81 MG TABEC PO SCH (08:09)
[2017-04-22] MEDS: MULTIVITAMINS/MINERALS THERAPEUTIC TAB PO SCH (08:09)
[2017-04-22] MEDS: METOPROLOL TARTRATE 50 MG TAB PO SCH (08:11)
[2017-04-22] MEDS: FLUoxetine HCL 10 MG CAP PO SCH (08:11)
[2017-04-22] MEDS: DOCUSATE SODIUM 50 MG/SENNA 8.6 MG TAB PO SCH (08:11)
[2017-04-22] MEDS: DIGOXIN 0.125 MG TAB PO SCH (08:12)
[2017-04-22] MEDS: SODIUM CHLORIDE 0.9% FLUSH 10 ML FLUSH IV FLUSH SCH (08:13)
[2017-04-22 08:20] VITALS: BP 133/58; PULSE 77; RESP 20; TEMP 95.8; O2SAT 99
--- NOTE | 2017-04-22 08:31 | HHI.PR ---
Subjective Remarks No issues overnight Pt walked about 150ft with PT yesterday Objective Vitals Vital Signs Date Time Temp Pulse Resp B/P (MAP) Pulse Ox O2 Delivery O2 Flow Rate FiO2 04/22/17 04:51 97.9 68 18 98/55 (69) 97 04/22/17 00:04 75 04/21/17 23:22 97.8 89 16 110/53 (72) 97 04/21/17 21:28 101 130/62 (84) 04/21/17 20:11 94 04/21/17 19:33 98.0 87 16 110/55 (73) 98 04/21/17 16:12 95.6 84 16 132/60 (84) 100 04/21/17 16:00 76 04/21/17 12:20 82 04/21/17 11:47 96.2 71 20 114/55 (74) 98 Result Diagram: 04/20/17 1745 04/20/17 1745 Other Results Laboratory Tests Test 04/20/17 17:45 04/20/17 20:05 04/21/17 12:10 White Blood Count 8.5 TH/MM3 Red Blood Count 3.32 MIL/MM3 Hemoglobin 10.0 GM/DL Hematocrit 28.4 % Mean Corpuscular Volume 85.4 FL Mean Corpuscular Hemoglobin 30.1 PG Mean Corpuscular Hemoglobin Concent 35.2 % Red Cell Distribution Width 14.8 % Platelet Count 211 TH/MM3 Mean Platelet Volume 7.7 FL Neutrophils (%) (Auto) 75.1 % Lymphocytes (%) (Auto) 18.4 % Monocytes (%) (Auto) 4.7 % Eosinophils (%) (Auto) 1.2 % Basophils (%) (Auto) 0.6 % Neutrophils # (Auto) 6.4 TH/MM3 Lymphocytes # (Auto) 1.6 TH/MM3 Monocytes # (Auto) 0.4 TH/MM3 Eosinophils # (Auto) 0.1 TH/MM3 Basophils # (Auto) 0.1 TH/MM3 CBC Comment DIFF FINAL Differential Comment Prothrombin Time 10.9 SEC Prothromb Time International Ratio 1.1 RATIO Activated Partial Thromboplast Time 22.4 SEC Blood Urea Nitrogen 13 MG/DL Creatinine 0.81 MG/DL Random Glucose 131 MG/DL Total Protein 6.9 GM/DL Albumin 4.0 GM/DL Calcium Level 9.0 MG/DL Alkaline Phosphatase 79 U/L Aspartate Amino Transf (AST/SGOT) 26 U/L Alanine Aminotransferase (ALT/SGPT) 37 U/L Total Bilirubin 0.8 MG/DL Sodium Level 139 MEQ/L Potassium Level 4.2 MEQ/L Chloride Level 103 MEQ/L Carbon Dioxide Level 29.7 MEQ/L Anion Gap 6 MEQ/L Estimat Glomerular Filtration Rate 94 ML/MIN Total Creatine Kinase 75 U/L Urine Color LIGHT-YELLOW Urine Turbidity CLEAR Urine pH 6.5 Urine Specific [place] 1.002 Urine Protein NEG mg/dL Urine Glucose (UA) NEG mg/dL Urine Ketones NEG mg/dL Urine Occult Blood NEG Urine Nitrite NEG Urine Bilirubin NEG Urine Urobilinogen LESS THAN 2.0 MG/DL Urine Leukocyte Esterase NEG Urine WBC LESS THAN 1 /hpf Microscopic Urinalysis Comment CATH-CULT NOT IND Digoxin Level 1.4 NG/ML Imaging Last Impressions Neck CTA 04/21/17 0000 Signed Impressions: Service Date/Time: April 14:30 - CONCLUSION: 1. Noncalcified and calcified plaque in the carotid bifurcations without evidence of hemodynamically significant stenosis. 2. Heavily calcified plaque along the aortic arch without significant stenosis involving the great vessels. 3. Heavily calcified plaque at the origin of the left vertebral artery with suspected significant stenosis. Heriberto Bay MD Head CTA 04/21/17 0000 Signed Impressions: Service Date/Time: April 14:30 - CONCLUSION: 1. Unremarkable head CTA examination. Specifically, no evidence for large vessel occlusion. Landry Galeas MD Carotid Artery Ultrasound 04/21/17 0000 Signed Impressions: Service Date/Time: April 10:37 - CONCLUSION: 1. Elevated peak systolic velocities of the internal carotid arteries suggesting 50-69%% stenoses although the ICA/CCA ratios are not elevated in this range. CTA of the carotids would be helpful for further evaluation of these somewhat discordant findings. 2. Elevation of the peak systolic velocities in the external carotid arteries bilaterally (right worse than left) suggestive of greater than 70%% stenosis on the right and 50-69%% stenosis on the left. Abner Kenyon MD Head CT 04/20/17 1730 Signed Impressions: Service Date/Time: Thursday, April 20, 2017 17:58 - CONCLUSION: 1. No acute intracranial abnormalities. Yon Staton MD Brain MRI 04/20/17 0000 Signed Impressions: Service Date/Time: Thursday, April 20, 2017 22:27 - CONCLUSION: 1. No acute findings. Moderate white matter ischemic changes similar to October 06. Yon Staton MD Last Impressions Head CT 04/20/17 1730 Signed Impressions: Service Date/Time: Thursday, April 20, 2017 17:58 - CONCLUSION: 1. No acute intracranial abnormalities. Yon Staton MD Brain MRI 04/20/17 0000 Signed Impressions: Service Date/Time: Thursday, April 20, 2017 22:27 - CONCLUSION: 1. No acute findings. Moderate white matter ischemic changes similar to October 06. Yon Staton MD Objective Remarks General: NAD, AAOx3 Chest: CTA Cardiac: Irregular Abd: +BS, soft ND/NT Ext: No edema, right foot 3 digit amputation site is healed well. A/P Problem List: (1) Transient speech disturbance ICD Codes: R47.9 - Unspecified speech disturbances Status: Acute Plan: Pt is a 71 y/o male with diabetes, paroxysmal atrial fibrillation, and peripheral artery disease. He was brought to the ED on 04/20/17 with complaints of speech difficulty, LE weakness x 2 episodes. TIA, transient speech difficulty LE weakness Weight loss/poor appetite Depression - Pts reports that for the last 6 weeks the patient has not had much appetite, weight loss (Approx 9lbs) and has been sleeping upwards of 18 hours per day The pt states that he has been very depressed and worried a lot lately. - Around 5 days ago the pt had an episode of weakness in the lower extremities where he couldn't hold himself up while ambulating and his lowered him to the floor and during this episode he had somewhat garbled speech for about 10-15 seconds. This same thing occurred 2 days ago. His reports that after the first episode occurred she checked his BS which was in the 120's and his BP and pulse. The BP was in the 130's systolic and his pulse was somewhat erratic going from 80's to 110's. - She took the pt to an urgent care yesterday who recommended that he go to the ED for further evaluation. - During his last admission in 09/2016 he had issues with AMS/agitation and hallucinations. According to the discharge summary, the pts had expressed at that time that the pt had had changes over the previous 6 months to include more forgetfulness, agitates easily, paranoid and misplaces things which had worsened with the infection. There is no obvious metabolic reason or drug. MRI/A was negative for CVA. It was felt likely that the patient has underlying dementia. Psych was consulted and they agreed that the pt has dementia with psychosis with visual hallucination and also thought he was experiencing some depression. Pt was started on Haldol 0.5mg po daily and his Prozac was increased to 30mg po daily. They had been seen by his PCP after his last admission in 09/2016 and he has continued on the Haldol 0.5mg daily and around a month ago they tried going up on his dose of Prozac to 40mg daily but the pt felt "weird" on the high dose and this was taken back down to 30mg daily. - Pt has not followed up with psychiatry as an outpt because he felt the psychiatrist he saw during his last admission was "tricking" him. - Pts workup thus far is unrevealing as to an metabolic issues that could have caused these episodes. - [place] to possibly be a TIA - CT Head was negative for any acute abnormality - MRI Brain was negative for any acute findings. Moderate white matter ischemic changes similar to October 06. - BMP was WNL - Pt slightly more anemic than previous labs but no evidence of any GIB - UA was negative. - Pt with known A. fib and is currently in A. fib - He is on ASA/Plavix and Pletal - Carotid US --> Elevated peak systolic velocities of the internal carotid arteries suggesting 50-69% stenoses although the ICA/CCA ratios are not elevated in this range. Elevation of the peak systolic velocities in the external carotid arteries bilaterally (right worse than left) suggestive of greater than 70% stenosis on the right and 50-69% stenosis on the left. - CTA Neck --> Noncalcified and calcified plaque in the carotid bifurcations without evidence of hemodynamically significant stenosis. Heavily calcified plaque along the aortic arch without significant stenosis involving the great vessels. Heavily calcified plaque at the origin of the left vertebral artery with suspected significant stenosis. - CTA Head --> Unremarkable head CTA examination. Specifically, no evidence for large vessel occlusion. - The case was discussed between Dr. Turcios and Dr. Fernandez and given the pts possible TIA symptoms it is recommended to change the pt to Eliquis and ASA and stop the Plavix. - Cont. Haldol and Prozac - PT evaluation Paroxysmal A. fib - Cont. Metoprolol 50mg po BID - Dig level 1.4 on 04/21 - Dig was continued at admission - Cont. ASA Diabetes - Pt takes Lantus 50units BID and Novolin R 6-8 units TID - His states that his blood sugars have still been running in the 200- 300s despite his poor appetite and decreased oral intake - She has been giving him Glucerna 1-2 drinks per day at home - Pt may need adjustments to his medications if his needs have changed with his recent weight loss Peripheral vascular disease - Cont. Pletal GERD - Cont. PPI (2) Weakness of both lower extremities ICD Codes: R29.898 - Other symptoms and signs involving the musculoskeletal system Plan: - See above (3) Paroxysmal atrial fibrillation ICD Codes: I48.0 - Paroxysmal atrial fibrillation Status: Acute Plan: - See above (4) Diabetes ICD Codes: E11.9 - Type 2 diabetes mellitus without complications Status: Chronic Plan: - See above Assessment and Plan Patient examined. Assessment and plan formulated with Carol Loco PA-C. I agree with the above. concern for tia sx's and slurring speech. resolved cta carotids no sig carotid dz. vertebral dz noted and discussed with pt/ concern for embolic dz given afib. he has peripheral vascular dz and on asa/plavix. discussed sx's with dr Turcios his services program manager. He is supportive of stopping plavix and continuing asa with eliquis. long discussion about risks of bleeding with eliquis with pt/. They agree to proceed with plan and f/u Dr Turcios. Problem Qualifiers (1) Diabetes: Carol Loco Apr 22, 2017 08:31 Fish Fernandez MD Apr 22, 2017 13:08
[2017-04-22] MEDS ORDERED: APIXABAN 5 MG TABLET PO SCH (09:00)
[2017-04-22] MEDS ORDERED: APIX5TAB PO (11:27)
--- NOTE | 2017-04-22 11:28 | HHI.DCPOC ---
Discharge Care Plan Diagnosis: (1) TIA (transient ischemic attack) (2) Transient speech disturbance (3) Weakness of both lower extremities (4) Paroxysmal atrial fibrillation (5) CAD (coronary artery disease) Goals to Promote Your Health * To prevent worsening of your condition and complications * To maintain your health at the optimal level Directions to Meet Your Goals Take your medications as prescribed Follow your dietary instruction Follow activity as directed Keep your appointments as scheduled Take your immunizations and boosters as scheduled If your symptoms worsen call your PCP, if no PCP go to Urgent Care Center or Emergency Room Smoking is Dangerous to Your Health. Avoid second hand smoke Call the 24-hour hour crisis hotline for domestic abuse at Carol Loco Apr 22, 2017 11:28
--- NOTE | 2017-04-22 11:29 | HHI.FF ---
Face to Face Verification Diagnosis: (1) TIA (transient ischemic attack) (2) Weakness of both lower extremities (3) Paroxysmal atrial fibrillation (4) Diabetes (5) CAD (coronary artery disease) (6) Transient speech disturbance Physical Therapy Order: Evaluate and Treat, Improve ambulation, Strength and gait training Home Health Nursing Order: Nursing assessment with vital signs I have seen patient Gumaro Rojo on 04/22/17. My clinical findings support the need for the requested home health care services because: Deconditioned w/ increased weakness Limited ability to care for self High risk of falls I certify that my clinical findings support that this patient is homebound because: Impaired cognitive ability/safety Unsteady gait/balance Carol Loco Apr 22, 2017 11:29
[2017-04-22 12:10] VITALS: BP 115/55; PULSE 85; RESP 18; TEMP 95.9; O2SAT 99
[2017-04-22] MEDS ORDERED: INSULIN DETEMIR 100 UNITS/ML VIAL SQ SCH (21:00)
== END 2017-04-22 15:06 | disposition home or self-care (01) ==
LOC: NEPE 17:17 → NEDA 19:07 → NEPHCDU 20:20 → H8EA 23:39 → NEPHCDU 23:41
PROVIDERS: ADMIT Hospitalist; ATTEND Hospitalist
DX: G45.9 Transient cerebral ischemic attack, unspecified (principal); R29.898 Other symptoms and signs involving the musculoskeletal system; D64.9 Anemia, unspecified; R63.0 Anorexia; R63.4 Abnormal weight loss; I48.0 Paroxysmal atrial fibrillation; I25.10 Atherosclerotic heart disease of native coronary artery without angina pectoris; E11.51 Type 2 diabetes mellitus with diabetic peripheral angiopathy without gangrene; I10 Essential (primary) hypertension; E78.00 Pure hypercholesterolemia, unspecified; E05.90 Thyrotoxicosis, unspecified without thyrotoxic crisis or storm; I25.2 Old myocardial infarction; J44.9 Chronic obstructive pulmonary disease, unspecified; E11.42 Type 2 diabetes mellitus with diabetic polyneuropathy; K21.9 Gastro-esophageal reflux disease without esophagitis; F03.90 Unspecified dementia, unspecified severity, without behavioral disturbance, psychotic disturbance, mood disturbance, and anxiety; F32.9 Major depressive disorder, single episode, unspecified; Z95.1 Presence of aortocoronary bypass graft; Z79.899 Other long term (current) drug therapy; Z79.82 Long term (current) use of aspirin; Z87.891 Personal history of nicotine dependence; Z95.5 Presence of coronary angioplasty implant and graft
CPT/HCPCS: 70450; 70496; 70498; 70551; 80053; 80162; 81001; 82550; 82948; 85025; 85610; 85730; 92523; 93005; 93880; 96372; 97110; 97116; 97162; 99285; G0378; G8987; G8988; G9162; G9163; G9164; Q9967

== ENCOUNTER 2017-06-24 14:25 | Inpatient (IN) | payer MEDICARE ==
[~2017-06-24] VITALS: Ht 188 cm; Wt 81.0 kg
[~2017-06-24 14:25] MED LIST changes: +APIX5TAB PO; -AUGM875T3 PO; -PLAV75TA29 PO
[2017-06-24 14:30] VITALS: BP 105/55; PULSE 79; RESP 14; TEMP 97.3; O2SAT 100
[2017-06-24] MEDS ORDERED: SODIUM CHLORIDE 0.9% FLUSH 10 ML FLUSH IVF PRN (15:15)
--- NOTE | 2017-06-24 15:49 | RADRPT ---
EXAM DATE/TIME: 06/24/2017 15:20 [facility] COMPARISON: ORBITS LIMITED (2 VWS), October 06, 2016, 20:44. INDICATIONS : Shortness of breath and syncope for three days. MEDICAL HISTORY : Chronic obstructive pulmonary disease. Hypertension Diabetes mellitus type II. SURGICAL HISTORY : CABG. Coronary artery stent. ENCOUNTER: Initial ACUITY: 3 days PAIN SCORE: 0/10 LOCATION: Bilateral chest FINDINGS: The patient is post median sternotomy. The heart is normal in size. The lungs are clear. The bony str uctures are grossly intact. CONCLUSION: 1. Post median sternotomy changes. No acute cardiopulmonary findings identified. Napoleon Gage MD on June 24, 2017 at 15:46 Board Certified Radiologist. This report was verified electronically.
[2017-06-24 16:22] VITALS: BP_SYST 114; BP_SYST 124; BP_SYST 87; BP_DIAS 49; BP_DIAS 55; BP_DIAS 67; RESP 20
--- NOTE | 2017-06-24 16:24 | RADRPT ---
EXAM DATE/TIME: 06/24/2017 16:13 [facility] COMPARISON: CT BRAIN W/O CONTRAST, April 20, 2017, 17:58. INDICATIONS : Weakness. RADIATION DOSE: 35.71 CTDIvol (mGy) MEDICAL HISTORY : Cardiovascular disease. Hypertension. Hernia, hiatal.Diabetes mellitus, GERD. SURGICAL HISTORY : CABG ENCOUNTER: Initial ACUITY: 1 day PAIN SCALE: 6/10 LOCATION: Bilateral cranial TECHNIQUE: Multiple contiguous axial images were obtained of the head. Using automated exposure control and adj ustment of the mA and/or kV according to patient size, radiation dose was kept as low as reasonably a chievable to obtain optimal diagnostic quality images. DICOM format image data is available electro nically for review and comparison. FINDINGS: CEREBRUM: Stable cortical and central atrophy. No evidence of midline shift, mass lesion, hemorrhage or acute infarction. No extra-axial fluid collections are seen. POSTERIOR FOSSA: The cerebellum and brainstem are intact. The 4th ventricle is midline. The cerebellopontine angle i s unremarkable. EXTRACRANIAL: The visualized portion of the orbits is intact. Complete opacification of the left sphenoid. SKULL: The calvaria is intact. No evidence of skull fracture. CONCLUSION: 1. Stable cortical and central atrophy. 2. Opacification of left sphenoid characteristic of a chronic sinusitis. This is new from the [facility] 2017 exam, however. 3. Otherwise, no acute intracranial process Brian Groves MD on June 24, 2017 at 16:20 Board Certified Radiologist. This report was verified electronically.
[2017-06-24 16:47] VITALS: BP 135/65; PULSE 74; RESP 20; O2SAT 100
[2017-06-24] MEDS ORDERED: CYMB60CA PO (16:53)
[2017-06-24 16:59] LABS: INTERNATIONAL NORMALIZED RATIO 1.1 RATIO; PROTHROMBIN TIME - PATIENT 11.4 SEC (9.8-11.6)
[2017-06-24 17:02] LABS: AUTOMATED NEUTROPHIL # 7.4 TH/MM3 (1.8-7.7); BASOPHIL # 0.1 TH/MM3 (0-0.2); BASOPHIL % 0.7 % (0.0-2.0); EOSINOPHIL # 0.1 TH/MM3 (0-0.4); EOSINOPHIL % 0.8 % (0.0-4.0); HEMOGLOBIN 12.3 GM/DL (13.0-17.0); LYMPH % 14.5 % (9.0-44.0); LYMPHOCYTE # 1.4 TH/MM3 (1.0-4.8); MEAN CELL VOLUME 72.5 FL (80.0-100.0); MEAN CORPUSCULAR HEMOGLOBIN 23.4 PG (27.0-34.0); MEAN CORPUSCULAR HGB CONC 32.3 % (32.0-36.0); MEAN PLATELET VOLUME 7.5 FL (7.0-11.0); MONO % 6.7 % (0.0-8.0); MONOCYTE # 0.6 TH/MM3 (0-0.9); NEUT % 77.3 % (16.0-70.0); PLATELET COUNT 202 TH/MM3 (150-450); RED BLOOD COUNT 5.24 MIL/MM3 (4.50-5.90); RED CELL DISTRIBUTION WIDTH 16.9 % (11.6-17.2); WHITE BLOOD COUNT 9.5 TH/MM3 (4.0-11.0)
[2017-06-24 17:14] LABS: ALBUMIN 3.6 GM/DL (3.4-5.0); AST (GOT) 18 U/L (15-37); BICARBONATE 33.2 MEQ/L (21.0-32.0); BLOOD UREA NITROGEN 21 MG/DL (7-18); CALCIUM 9.4 MG/DL (8.5-10.1); CHLORIDE 99 MEQ/L (98-107); CREATININE 0.97 MG/DL (0.60-1.30); GLOMERULAR FILTRATION RATE 76 ML/MIN (>89); GLUCOSE,RANDOM 205 MG/DL (74-106); MAGNESIUM 2.3 MG/DL (1.5-2.5); SODIUM (NA) 136 MEQ/L (136-145)
[2017-06-24 17:15] LABS: ALT (GPT) 24 U/L (12-78)
[2017-06-24 17:28] LABS: ALKALINE PHOSPHATASE 109 U/L (45-117); DIGOXIN 1.1 NG/ML (0.8-2.0); TOTAL BILIRUBIN ADULT 0.6 MG/DL (0.2-1.0); TOTAL PROTEIN 7.2 GM/DL (6.4-8.2); TROPONIN I LESS THAN 0.02 NG/ML (0.02-0.05)
--- NOTE | 2017-06-24 17:41 | PD ---
HPI Chief Complaint: Syncope/Near-Syncope Time Seen by Provider: 14:48 Travel History International Travel<30 days: No Contact w/Intl Traveler<30days: No Traveled to known affect area: No History of Present Illness HPI 71-year-old male with history of CAD, CABG, PVD, diabetes, A. fib on eliquis, followed by community organizer Dr. Turcios and vascular Dr. Chavez, here with his for evaluation of frequent syncopal episodes. The patient has had about 3 or 4 episodes of syncope this week. These episodes usually occur when the patient goes from sitting to standing. When he does so he becomes lightheaded, has darkened vision, then loses consciousness. He has not had any fevers, chills, cough, or recent illness. No chest pain or dyspnea. No melena or hematochezia. No hemoptysis. No history of DVT or PE. PFSH Past Medical History Hx Anticoagulant Therapy: Yes Atrial Fibrillation: Yes Autoimmune Disease: No Anxiety: Yes Heart Rhythm Problems: Yes (a-fib) Cancer: No Cardiovascular Problems: Yes High Cholesterol: Yes Chest Pain: Yes COPD: Yes Coronary Artery Disease: Yes Dementia: Yes Diabetes: Yes Patient Takes Glucophage: No Diminished Hearing: Yes (bilat ANDREAFSKI) Endocrine: No Gastrointestinal Disorders: Yes (ACID REFLUX) GERD: Yes Glaucoma: No Genitourinary: No Hepatitis: No Hiatal Hernia: Yes Hypertension: Yes Immune Disorder: No Neurologic: Yes (neuropathy bilat legs/feet/hands) Psychiatric: Yes (dementia) Reproductive: No Respiratory: Yes (COPD) Integumentary: No Thyroid Disease: No Tetanus Vaccination: < 5 Years Past Surgical History Abdominal Surgery: Yes ("LINK OF INTESTINE REMOVED") AICD: No Body Medical Devices: stents in heart and legs Cardiac Surgery: Yes (Carotid endarterectomy, fem-pop) Coronary Artery Bypass Graft: Yes (X3) Coronary Stent: Yes (x3) Ear Surgery: No Eye Surgery: Yes (CATARACT) Joint Replacement: No Neurologic Surgery: No Oral Surgery: No Pacemaker: No Thoracic Surgery: Yes Other Surgery: Yes (toes) Social History Alcohol Use: No Tobacco Use: No (FORMER) Substance Use: No Allergies-Medications (Allergen,Severity, Reaction): Coded Allergies: Sulfa (Sulfonamide Antibiotics) (Unverified Allergy, Severe, Hives, ) Reported Meds & Prescriptions Reported Meds & Active Scripts Active Eliquis (Apixaban) 5 Mg Tab 5 Mg PO BID Haloperidol 0.5 Mg Tab 0.5 Mg PO DAILY@1600 Reported [place] DANGELO (Duloxetine HCl) 60 Mg Capdr 60 Mg PO HS Vitamin D3 (Cholecalciferol) 5,000 Unit Cap 5,000 Units PO MOWEFR Take 1 capsule daily on Tuesday,Tuesday and Tuesday Centrum Silver (Multiple Vitamins W/ Minerals) 1 Chw Chw 1 Tab PO DAILY Aspirin Adult Low Strength (Aspirin) 81 Mg Tabdr 81 Mg PO DAILY Metoprolol Tartrate 50 Mg Tab 50 Mg PO BID Fish Oil ([place]-3 Fatty Acids) 500 Mg Cap 500 Mg PO DAILY Prevacid 24Hr (Lansoprazole) 15 Mg Cap 15 Mg PO DAILY Novolin R Inj (Insulin Human Regular) 1,000 Unit/10 Ml Vial 0 SQ DIRECTED Sliding Scale As Directed. Lantus Inj (Insulin Glargine) 100 Unit/Ml Inj 50 Unit SQ BID Digoxin 0.125 Mg Tab 0.125 Mg PO DAILY Cilostazol 100 Mg Tab 100 Mg PO BID Atorvastatin (Atorvastatin Calcium) 40 Mg Tab 40 Mg PO HS Review of Systems Except as stated in HPI: all other systems reviewed are Neg Physical Exam Narrative GENERAL: Well-developed, well-nourished, pleasant, comfortable, no apparent distress. SKIN: Focused skin assessment warm/dry. No rash. No pallor. HEAD: Atraumatic. Normocephalic. EYES: Pupils equal and round. No scleral icterus. No injection or drainage. ENT: Mucous membranes pink and moist. NECK: Trachea midline. No JVD. CARDIOVASCULAR: Regular rate and rhythm. RESPIRATORY: No accessory muscle use. Clear to auscultation. Breath sounds equal bilaterally. GASTROINTESTINAL: Abdomen soft, non-tender, nondistended. MUSCULOSKELETAL: No obvious deformities. No clubbing. No cyanosis. No edema. NEUROLOGICAL: Awake and alert. No obvious cranial nerve deficits. Motor grossly within normal limits. Normal speech. No focal deficits. PSYCHIATRIC: Appropriate mood and affect; insight and judgment normal. Data Data Last Documented VS Vital Signs Date Time Temp Pulse Resp B/P (MAP) Pulse Ox O2 Delivery O2 Flow Rate FiO2 06/24/17 16:47 74 20 135/65 (88) 100 Room Air 06/24/17 14:30 97.3 Orders Orders Electrocardiogram (06/24/17 15:03) Ckmb (Isoenzyme) Profile (06/24/17 15:03) Complete Blood Count With Diff (06/24/17 15:03) Comprehensive Metabolic Panel (06/24/17 15:03) Magnesium (Mg) (06/24/17 15:03) Prothrombin Time / Inr (Pt) (06/24/17 15:03) Act Partial Throm Time (Ptt) (06/24/17 15:03) Troponin I (06/24/17 15:03) Chest, Single Ap (06/24/17 15:03) Ecg Monitoring (06/24/17 15:03) Iv Access Insert/Monitor (06/24/17 15:03) Oximetry (06/24/17 15:03) Sodium Chloride 0.9% Flush (Ns Flush) (06/24/17 15:15) Ct Brain W/O Iv Contrast(Rout) (06/24/17 ) Digoxin (06/24/17 15:03) Orthostatic Vital Signs (06/24/17 15:04) Labs Laboratory Tests Test 06/24/17 16:30 White Blood Count 9.5 TH/MM3 Red Blood Count 5.24 MIL/MM3 Hemoglobin 12.3 GM/DL Hematocrit 38.0 % Mean Corpuscular Volume 72.5 FL Mean Corpuscular Hemoglobin 23.4 PG Mean Corpuscular Hemoglobin Concent 32.3 % Red Cell Distribution Width 16.9 % Platelet Count 202 TH/MM3 Mean Platelet Volume 7.5 FL Neutrophils (%) (Auto) 77.3 % Lymphocytes (%) (Auto) 14.5 % Monocytes (%) (Auto) 6.7 % Eosinophils (%) (Auto) 0.8 % Basophils (%) (Auto) 0.7 % Neutrophils # (Auto) 7.4 TH/MM3 Lymphocytes # (Auto) 1.4 TH/MM3 Monocytes # (Auto) 0.6 TH/MM3 Eosinophils # (Auto) 0.1 TH/MM3 Basophils # (Auto) 0.1 TH/MM3 CBC Comment DIFF FINAL Differential Comment Prothrombin Time 11.4 SEC Prothromb Time International Ratio 1.1 RATIO Activated Partial Thromboplast Time 27.5 SEC Blood Urea Nitrogen 21 MG/DL Creatinine 0.97 MG/DL Random Glucose 205 MG/DL Total Protein 7.2 GM/DL Albumin 3.6 GM/DL Calcium Level 9.4 MG/DL Magnesium Level 2.3 MG/DL Alkaline Phosphatase 109 U/L Aspartate Amino Transf (AST/SGOT) 18 U/L Alanine Aminotransferase (ALT/SGPT) 24 U/L Total Bilirubin 0.6 MG/DL Sodium Level 136 MEQ/L Potassium Level 4.6 MEQ/L Chloride Level 99 MEQ/L Carbon Dioxide Level 33.2 MEQ/L Anion Gap 4 MEQ/L Estimat Glomerular Filtration Rate 76 ML/MIN Total Creatine Kinase 37 U/L Troponin I LESS THAN 0.02 NG/ML Digoxin Level 1.1 NG/ML MDM Medical Decision Making Medical Screen Exam Complete: Yes Emergency Medical Condition: Yes Interpretation(s) EKG: A. fib, rate 88, normal axis, normal intervals, no acute ischemic abnormality, unchanged from prior. Differential Diagnosis Syncope, dysrhythmia, pericardial effusion, tamponade, aortic stenosis, dehydration, PE Narrative Course Initial vital signs show heart rate 79, blood pressure 105/55, pulse ox 100% on room air, oral temp of 97.3F. Sitting blood pressure is 114/55, standing blood pressure is 87/49 with an increase in heart rate of 10 bpm from sitting to standing. CBC: WBC 9.5, hemoglobin 12.3, hematocrit 38, platelets 202. CMP is remarkable for bicarbonate 33.2, random glucose 205, otherwise unremarkable. Cardiac enzymes are negative. Digoxin level is 1.1. CT brain: CONCLUSION: 1. Stable cortical and central atrophy. 2. Opacification of left sphenoid characteristic of a chronic sinusitis. This is new from the April 2017 exam, however. 3. Otherwise, no acute intracranial process Chest x-ray: CONCLUSION: 1. Post median sternotomy changes. No acute cardiopulmonary findings identified. Patient was made aware of all findings. He is resting comfortably. Again he never had any chest pain. He is also on Eliquis for A. fib, making a PE less likely. He is slightly orthostatic. I believe he should be admitted for further cardiac evaluation with telemetry monitoring and likely echocardiogram. He is amenable to this plan. Case discussed with [facility] hospitalist Dr. Garcia who will admit the patient to his service. Diagnosis Primary Impression: Syncope Qualified Codes: R55 - Syncope and collapse Admitting Information Admitting Physician Requests: Justus Flores MD Jun 24, 2017 17:41
[2017-06-24] MEDS ORDERED: ONDANSETRON HCL 4 MG/2 ML VIAL IVP PRN (17:45)
[2017-06-24] MEDS ORDERED: ACETAMINOPHEN 325 MG TAB PO PRN (17:45)
[2017-06-24] MEDS ORDERED: MAGNESIUM HYDROXIDE SUSP 30 ML CUP PO PRN (17:45)
[2017-06-24] MEDS ORDERED: SODIUM CHLORIDE 0.9% FLUSH 10 ML FLUSH IV FLUSH PRN (17:45)
[2017-06-24] MEDS ORDERED: NALOXONE HCL 0.4 MG/ML AMP IV PUSH PRN (17:45)
[2017-06-24 19:47] LABS: FREE T4 0.79 NG/DL (0.76-1.46)
[2017-06-24 20:00] VITALS: BP 139/67; PULSE 86; RESP 18; TEMP 97.4; O2SAT 90
[2017-06-24] MEDS: INSULIN ASPART SUPPLEMENTAL SCALE SQ SCH (21:00)
[2017-06-24] MEDS: DULoxetine HCl DR 60 MG CAP PO SCH (21:21)
[2017-06-24] MEDS: SODIUM CHLORIDE 0.9% FLUSH 10 ML FLUSH IV FLUSH SCH (21:21)
[2017-06-24] MEDS: APIXABAN 5 MG TABLET PO SCH (21:21)
[2017-06-24] MEDS: INSULIN DETEMIR 100 UNITS/ML VIAL SQ SCH (21:22)
[2017-06-24] MEDS: ATORVASTATIN 40 MG TAB PO SCH (21:22)
[2017-06-24] MEDS: METOPROLOL TARTRATE 50 MG TAB PO SCH (21:22)
[2017-06-24] MEDS: CILOSTAZOL 100 MG TAB PO SCH (22:16)
[2017-06-25] VITALS (12 sets, daily range): BP systolic 68–160; BP diastolic 44–73; PULSE 77–112; RESP 16–20; TEMP 97.6–98; O2SAT 95–99
[2017-06-25] MEDS: DIGOXIN 0.125 MG TAB PO SCH (08:05)
[2017-06-25] MEDS: CILOSTAZOL 100 MG TAB PO SCH ×2 (08:06→21:37)
[2017-06-25] MEDS: SODIUM CHLORIDE 0.9% FLUSH 10 ML FLUSH IV FLUSH SCH ×2 (08:06→21:00)
[2017-06-25] MEDS: METOPROLOL TARTRATE 50 MG TAB PO SCH (08:06)
[2017-06-25] MEDS: APIXABAN 5 MG TABLET PO SCH ×2 (08:06→21:31)
[2017-06-25] MEDS: INSULIN ASPART SUPPLEMENTAL SCALE SQ SCH ×4 (08:06→21:33)
[2017-06-25] MEDS: PANTOPRAZOLE SOD 20 MG DELAYED RELEASE TAB PO SCH (08:06)
[2017-06-25 08:29] LABS: AUTOMATED NEUTROPHIL # 6.7 TH/MM3 (1.8-7.7); BASOPHIL # 0.1 TH/MM3 (0-0.2); BASOPHIL % 0.6 % (0.0-2.0); EOSINOPHIL # 0.1 TH/MM3 (0-0.4); EOSINOPHIL % 1.3 % (0.0-4.0); HEMATOCRIT 36.1 % (39.0-51.0); HEMOGLOBIN 11.7 GM/DL (13.0-17.0); LYMPHOCYTE # 1.3 TH/MM3 (1.0-4.8); MEAN CELL VOLUME 71.8 FL (80.0-100.0); MEAN CORPUSCULAR HEMOGLOBIN 23.2 PG (27.0-34.0); MEAN CORPUSCULAR HGB CONC 32.3 % (32.0-36.0); MEAN PLATELET VOLUME 7.1 FL (7.0-11.0); MONO % 7.9 % (0.0-8.0); MONOCYTE # 0.7 TH/MM3 (0-0.9); NEUT % 75.2 % (16.0-70.0); PLATELET COUNT 191 TH/MM3 (150-450); RED BLOOD COUNT 5.03 MIL/MM3 (4.50-5.90); RED CELL DISTRIBUTION WIDTH 16.9 % (11.6-17.2); WHITE BLOOD COUNT 8.9 TH/MM3 (4.0-11.0)
[2017-06-25] MEDS ORDERED: SODIUM CHLOR 0.9% 1000 ML INJ 1,000 ML IV SCH (08:45)
[2017-06-25 09:04] LABS: CALCIUM 9.3 MG/DL (8.5-10.1); CREATININE 0.81 MG/DL (0.60-1.30)
--- NOTE | 2017-06-25 09:15 | HHI.HP ---
HPI Service [facility] Hospitalists Primary Care Physician Ismael Gibbons D.O. Admission Diagnosis frequent syncopal episodes Chief Complaint: Recurrent syncopal episodes with standing Travel History International Travel<30 Days: No Contact w/Intl Traveler <30 Da: No Traveled to Known Affected Are: No History of Present Illness This is a 71-year-old male patient with past medical history which includes coronary artery disease status post CABG 3 in 2001, paroxysmal atrial fibrillation, hypertension, hyperlipidemia, diabetes mellitus insulin-dependent , diabetic neuropathy, carotid stenosis status post CEA, PAD status post balloon angioplasty left common femoral and stenting of the left SFA 2014, right -sided intervention 2015, right toe amputation and recent TIAs. Patient presents to the emergency department yesterday with complaints of recurrent syncopal episodes. The patient reports he has had about 3 or 4 episodes of syncope this past week. These episodes usually occur when the patient goes from sitting to standing position. When he does so he becomes lightheaded, has darkened vision, then loses consciousness. Patient's reports that patient had an episode last Tuesday where he fell in the kitchen and then she noticed generalized shaking for 10 seconds. There was no loss of bowel or bladder control also no post-ictal state. Patient has not been able to drive, independently cook, do house chores or bill paying for about three years. Patient has had very little appetite for the past 3 months. Patient has been eating only cereal or soup for the past three months. He has lost approximally 40 pounds. He has not had any fevers, chills, cough, or recent illness. Patient denies chest pain, dyspnea, melena , hematochezia or hemoptysis. No history of DVT or PE. Review of Systems ROS Limitations: Poor Historian Past Family Social History Past Medical History coronary artery disease status post CABG 3 in 2001, paroxysmal atrial fibrillation, hypertension, hyperlipidemia, diabetes mellitus insulin-dependent , diabetic neuropathy, carotid stenosis status post CEA, PAD status post balloon angioplasty left common femoral and stenting of the left SFA 2014, right -sided intervention 2015, right toe amputation and recent TIAs Past Surgical History Coronary artery bypass graft 3 2001, cataract surgery, colonoscopy with polypectomy, iridotomy by YAG laser bilaterally, carotid endarterectomy 2007, right femoral artery stenting, right hemicolectomy and right toe amputation Reported Medications Eliquis (Apixaban) 5 Mg Tab 5 Mg PO BID Haloperidol 0.5 Mg Tab 0.5 Mg PO DAILY@[address] (Duloxetine HCl) 60 Mg Capdr 60 Mg PO HS Vitamin D3 (Cholecalciferol) 5,000 Unit Cap 5,000 Units PO MOWEFR Take 1 capsule daily on Tuesday,Tuesday and Tuesday Centrum Silver (Multiple Vitamins W/ Minerals) 1 Chw Chw 1 Tab PO DAILY Aspirin Adult Low Strength (Aspirin) 81 Mg Tabdr 81 Mg PO DAILY Metoprolol Tartrate 50 Mg Tab 50 Mg PO BID Fish Oil ([place]-3 Fatty Acids) 500 Mg Cap 500 Mg PO DAILY Prevacid 24Hr (Lansoprazole) 15 Mg Cap 15 Mg PO DAILY Novolin R Inj (Insulin Human Regular) 1,000 Unit/10 Ml Vial 0 SQ DIRECTED Sliding Scale As Directed. Lantus Inj (Insulin Glargine) 100 Unit/Ml Inj 50 Unit SQ BID Digoxin 0.125 Mg Tab 0.125 Mg PO DAILY Cilostazol 100 Mg Tab 100 Mg PO BID Atorvastatin (Atorvastatin Calcium) 40 Mg Tab 40 Mg PO HS Allergies: Coded Allergies: Sulfa (Sulfonamide Antibiotics) (Unverified Allergy, Severe, Hives, ) Family History Noncontributory Social History lives with spouse Denies EtOH use Former tobacco use or Physical Exam Vital Signs Vital Signs Date Time Temp Pulse Resp B/P (MAP) Pulse Ox O2 Delivery O2 Flow Rate FiO2 06/25/17 06:43 97 18 68/44 (52) 97 06/25/17 06:38 95 18 73/51 (58) 98 06/25/17 06:33 97.6 91 18 107/71 (83) 98 06/25/17 03:09 112 06/25/17 00:24 97.9 92 18 104/54 (71) 98 06/24/17 20:00 97.4 86 18 139/67 (91) 90 06/24/17 19:00 06/24/17 16:47 74 20 135/65 (88) 100 Room Air 06/24/17 16:22 81 20 124/67 (86) 88 114/55 (74) 91 87/49 (62) 06/24/17 14:30 97.3 79 14 105/55 (72) 100 Room Air Physical Exam GENERAL: This is a well-nourished, well-developed patient, in no apparent distress. SKIN: No rashes, ecchymoses or lesions. Cool and dry. HEAD: Atraumatic. Normocephalic. No temporal or scalp tenderness. EYES: Pupils equal round and reactive. Extraocular motions intact. No scleral icterus. No injection or drainage. ENT: Nose without bleeding, purulent drainage or septal hematoma. Throat without erythema, tonsillar hypertrophy or exudate. Uvula midline. Airway patent. NECK: Trachea midline. No JVD or lymphadenopathy. Supple, nontender, no meningeal signs. CARDIOVASCULAR: Regular rate and rhythm without murmurs, gallops, or rubs. RESPIRATORY: Clear to auscultation. Breath sounds equal bilaterally. No wheezes , rales, or rhonchi. GASTROINTESTINAL: Abdomen soft, non-tender, nondistended. No hepato-splenomegaly , or palpable masses. No guarding. MUSCULOSKELETAL: Extremities without clubbing, cyanosis, or edema. No joint tenderness, effusion, or edema noted. No calf tenderness. Negative Homans sign bilaterally. NEUROLOGICAL: Awake and alert. Cranial nerves II through XII intact. Motor and sensory grossly within normal limits. Five out of 5 muscle strength in all muscle groups. Normal speech. Laboratory Laboratory Tests Test 06/24/17 16:30 06/25/17 08:11 White Blood Count 9.5 8.9 Red Blood Count 5.24 5.03 Hemoglobin 12.3 11.7 Hematocrit 38.0 36.1 Mean Corpuscular Volume 72.5 71.8 Mean Corpuscular Hemoglobin 23.4 23.2 Mean Corpuscular Hemoglobin Concent 32.3 32.3 Red Cell Distribution Width 16.9 16.9 Platelet Count 202 191 Mean Platelet Volume 7.5 7.1 Neutrophils (%) (Auto) 77.3 75.2 Lymphocytes (%) (Auto) 14.5 15.0 Monocytes (%) (Auto) 6.7 7.9 Eosinophils (%) (Auto) 0.8 1.3 Basophils (%) (Auto) 0.7 0.6 Neutrophils # (Auto) 7.4 6.7 Lymphocytes # (Auto) 1.4 1.3 Monocytes # (Auto) 0.6 0.7 Eosinophils # (Auto) 0.1 0.1 Basophils # (Auto) 0.1 0.1 CBC Comment DIFF FINAL DIFF FINAL Differential Comment Prothrombin Time 11.4 Prothromb Time International Ratio 1.1 Activated Partial Thromboplast Time 27.5 Blood Urea Nitrogen 21 Creatinine 0.97 Random Glucose 205 Total Protein 7.2 Albumin 3.6 Calcium Level 9.4 Magnesium Level 2.3 Alkaline Phosphatase 109 Aspartate Amino Transf (AST/SGOT) 18 Alanine Aminotransferase (ALT/SGPT) 24 Total Bilirubin 0.6 Sodium Level 136 Potassium Level 4.6 Chloride Level 99 Carbon Dioxide Level 33.2 Anion Gap 4 Estimat Glomerular Filtration Rate 76 Total Creatine Kinase 37 Troponin I LESS THAN 0.02 Free Thyroxine 0.79 Thyroid Stimulating Hormone 3rd Gen 1.800 Digoxin Level 1.1 Result Diagram: 06/25/17 0811 06/24/17 1630 Caprini VTE Risk Assessment Caprini VTE Risk Assessment: Mod/High Risk (score >= 2) Caprini Risk Assessment Model Point Value = 1 Point Value = 2 Point Value = 3 Point Value = 5 Age 41-60 Minor surgery BMI > 25 kg/m2 Swollen legs Varicose veins or History of unexplained or recurrent spontaneous Oral contraceptives or hormone replacement Sepsis (< 1 month) Serious lung disease, including pneumonia (< 1 month) Abnormal pulmonary function Acute myocardial infarction Congestive heart failure (< 1 month) History of inflammatory bowel disease Medical patient at bed rest Age 61-74 Arthroscopic surgery Major open surgery (> 45 min) Laparoscopic surgery (> 45 min) Malignancy Confined to bed (> 72 hours) Immobilizing plaster cast Central venous access Age >= 75 History of VTE Family history of VTE Factor V Leiden Prothrombin [id number] Lupus anticoagulant Anticardiolipin antibodies Elevated serum homocysteine Heparin-induced thrombocytopenia Other congenital or acquired thrombophilia Stroke (< 1 month) Elective arthroplasty Hip, pelvis, or leg fracture Acute spinal cord injury (< 1 month) Prophylaxis Regimen Total Risk Factor Score Risk Level Prophylaxis Regimen 0-1 Low Early ambulation 2 Moderate Order ONE of the following: *Sequential Compression Device (SCD) *Heparin 5000 units SQ BID 3-4 Higher Order ONE of the following medications: *Heparin 5000 units SQ TID *Enoxaparin/Lovenox 40 mg SQ daily (WT < 150 kg, CrCl > 30 mL/min) *Enoxaparin/Lovenox 30 mg SQ daily (WT < 150 kg, CrCl > 10-29 mL/min) *Enoxaparin/Lovenox 30 mg SQ BID (WT < 150 kg, CrCl > 30 mL/min) AND/OR *Sequential Compression Device (SCD) 5 or more Highest Order ONE of the following medications: *Heparin 5000 units SQ TID (Preferred with Epidurals) *Enoxaparin/Lovenox 40 mg SQ daily (WT < 150 kg, CrCl > 30 mL/min) *Enoxaparin/Lovenox 30 mg SQ daily (WT < 150 kg, CrCl > 10-29 mL/min) *Enoxaparin/Lovenox 30 mg SQ BID (WT < 150 kg, CrCl > 30 mL/min) AND *Sequential Compression Device (SCD) Assessment and Plan Problem List: (1) Syncope ICD Codes: R55 - Syncope and collapse Status: Acute Plan: Syncope possible seizure activity Orthostatic hypotension Patient presents to the emergency department yesterday with complaints of recurrent syncopal episodes. The patient reports he has had about 3 or 4 episodes of syncope this past week. These episodes usually occur when the patient goes from sitting to standing position. Patient was recently admitted April 2017 at that time felt to have TIA like symptoms but also there is report of decreased appetite and weight loss. At that time patient was also evaluated by psychiatry who felt patient had dementia with psychosis and visual hallucinations patient was started on Haldol 0.5 mg by mouth daily. Review of outpatient records reveals recent 2-D echocardiogram May 31, 2017 : Normal left ventricular size and wall thickness the left ventricular systolic function is normal with an estimated ejection fraction of 60-65%. Left ventricular diastolic function parameters are normal. Mitral valve mild thickening of the mitral valve leaflets. Mitral annular calcification is present. Mild mitral valve regurgitation. No mitral valve stenosis. Aortic valve trileaflet aortic valve. Aortic valve sclerosis is present. Calcification of the non-coronary cusp. No aortic valve regurgitation and no aortic valve stenosis. Aortic valve mean gradient is 4 mmHg. Tricuspid valve is structurally normal with mild tricuspid valve regurgitation with estimated pulmonary arterial pressure is 34.4 mmHg. Normal estimated pulmonary pressures. Pulmonary valve no pulmonary valve regurgitation or stenosis Patient also had recent previous carotid ultrasound in neck CTA - Carotid US (04/21/17)--> Elevated peak systolic velocities of the internal carotid arteries suggesting 50-69% stenoses although the ICA/CCA ratios are not elevated in this range. Elevation of the peak systolic velocities in the external carotid arteries bilaterally (right worse than left) suggestive of greater than 70% stenosis on the right and 50-69% stenosis on the left. - CTA Neck (04/21/17)--> Noncalcified and calcified plaque in the carotid bifurcations without evidence of hemodynamically significant stenosis. Heavily calcified plaque along the aortic arch without significant stenosis involving the great vessels. Heavily calcified plaque at the origin of the left vertebral artery with suspected significant stenosis. Orthostatic vital signs positive standing blood pressure 107/71 heart rate 91, sitting blood pressure 73/51 heart rate 95, standing blood pressure 68/44 heart rate 97 Patient's does report that patient has had very little appetite for the past three months will start [place] AKIRA hose Start normal saline at 84 cc an hour Continuous cardiac telemetry CT of the head reviewed and reveals stable cortical and central atrophy. Opacification of the left sphenoid characteristic of chronic sinusitis. This is new from April 2017 exam however otherwise no acute intracranial process. Chest x-ray reviewed and reveals post medial sternal changes no acute cardiopulmonary findings identified Patient's only recent medication change was April 2017 his Plavix was discontinued and patient was placed on Eliquis to aspirin due to TIA symptoms EEG requested PT evaluation requested (2) Diabetes ICD Codes: E11.9 - Type 2 diabetes mellitus without complications Status: Chronic Plan: Patient takes Lantus 50 Units SQ BID Levemir 20 units SQ twice a day Check Accu-Cheks before meals at bedtime with medium dose sliding scale insulin coverage Diabetic diet (3) Paroxysmal atrial fibrillation ICD Codes: I48.0 - Paroxysmal atrial fibrillation Status: Acute Plan: Patient's metoprolol 50 mg PO BID on hold due to hypotension. Will decrease down to Metoprolol 12.5 mg PO BID Continue Eliquis and Digoxin Dig level 1.1 Monitor continuous telemetry (4) CAD (coronary artery disease) ICD Codes: I25.10 - Atherosclerotic heart disease of [place] coronary artery without angina pectoris Status: Acute Plan: Continue patient's Eliquis and Atorvastatin (5) PAD (peripheral artery disease) ICD Codes: I73.9 - Peripheral arterial disease Status: Chronic Plan: Continue home Eliquis, Cilostazol, Atorvastatin, Assessment and Plan Patient examined. Assessment and plan formulated with Jerica Vasquez PA-C. I agree with the above. Physician Certification 2 Midnight Certification Type: Admission for Inpatient Services Order for Inpatient Services The services are ordered in accordance with Medicare regulations or non- Medicare payer requirements, as applicable. In the case of services not specified as inpatient-only, they are appropriately provided as inpatient services in accordance with the 2-midnight benchmark. Estimated LOS (days): 2 days is the estimated time the patient will need to remain in the hospital, assuming treatment plan goals are met and no additional complications. Post-Hospital Plan: Home Health Problem Qualifiers (1) Syncope: Qualified Codes: R55 - Syncope and collapse Jerica Vasquez Jun 25, 2017 09:15 Gumaro Garcia DO Jun 27, 2017 01:11
[2017-06-25] MEDS: INSULIN DETEMIR 100 UNITS/ML VIAL SQ SCH ×2 (09:19→21:00)
[2017-06-25] MEDS ORDERED: PILL SPLITTER OTHER PRN (13:45)
--- NOTE | 2017-06-25 14:09 | EKG ---
Date Performed: 06/24/2017 Time Performed: 14:48:26 PTAGE: 71 years EKG: ATRIAL FIBRILLATION ANTEROSEPTAL MYOCARDIAL INFARCTION, AGE UNDETERMINATE PREVIOUS TRACING : 04/20/2017 19.08 DOCTOR: Kapil Coleman Interpretating Date/Time 06/25/2017 14:08:52
[2017-06-25] MEDS: HALOPERIDOL 0.5 MG TAB PO SCH (16:24)
--- NOTE | 2017-06-25 19:32 | MG ---
cc: VAL MARIANO Lab No: [id number] Date: 06/25/2017 Age: Sex: M Race: TECHNIQUE: A 17 channel EEG. DESCRIPTION: The background rhythm reveals mild slowing in the theta range at roughly 6 Hz, probably related to drowsiness. At times, there is a normal alpha rhythm. no lateralizing features identified and no epileptic features are seen. There is some muscle artifact present. Photic results in a modest driving response. INTERPRETATION Mildly abnormal study consistent with a mild encephalopathy versus drowsiness. MD FILI Brandon/RADHIKA /7:12 PM /7:25 PM
[2017-06-25] MEDS: DULoxetine HCl DR 60 MG CAP PO SCH (21:30)
[2017-06-25] MEDS: ATORVASTATIN 40 MG TAB PO SCH (21:31)
[2017-06-25] MEDS: MIRTAZAPINE 15 MG TAB PO SCH (21:31)
[2017-06-25] MEDS: METOPROLOL TARTRATE 25 MG TAB PO SCH (21:31)
[2017-06-26] VITALS (7 sets, daily range): BP systolic 106–143; BP diastolic 51–72; PULSE 75–96; RESP 18–20; TEMP 97.2–98.2; O2SAT 95–98
[2017-06-26] MEDS: INSULIN ASPART SUPPLEMENTAL SCALE SQ SCH ×4 (08:00→20:11)
[2017-06-26] MEDS: INSULIN DETEMIR 100 UNITS/ML VIAL SQ SCH ×2 (08:35→20:11)
[2017-06-26] MEDS: PANTOPRAZOLE SOD 20 MG DELAYED RELEASE TAB PO SCH (08:39)
[2017-06-26] MEDS: CILOSTAZOL 100 MG TAB PO SCH ×2 (08:39→20:00)
[2017-06-26] MEDS: DIGOXIN 0.125 MG TAB PO SCH (08:40)
[2017-06-26] MEDS: METOPROLOL TARTRATE 25 MG TAB PO SCH ×2 (08:40→19:59)
[2017-06-26] MEDS: APIXABAN 5 MG TABLET PO SCH ×2 (08:40→20:00)
[2017-06-26] MEDS: SODIUM CHLORIDE 0.9% FLUSH 10 ML FLUSH IV FLUSH SCH ×2 (08:40→20:12)
[2017-06-26] MEDS ORDERED: MIRTA15 PO (12:00)
--- NOTE | 2017-06-26 12:02 | HHI.FF ---
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 My clinical findings support the need for the requested home health care services because: Limited ability to care for self High risk of falls I certify that my clinical findings support that this patient is homebound because: Impaired cognitive ability/safety Unsteady gait/balance Jerica Vasquez Jun 26, 2017 12:02
--- NOTE | 2017-06-26 12:58 | HHI.DS ---
Discharge Summary Admission Date Jun 24, 2017 at 17:47 Discharge Date: Jun 27, 2017 Admitting Diagnosis frequent syncopal episodes (1) Syncope Diagnosis: Principal ICD Codes: R55 - Syncope and collapse Status: Acute (2) Diabetes Diagnosis: Secondary ICD Codes: E11.9 - Type 2 diabetes mellitus without complications Status: Chronic (3) Paroxysmal atrial fibrillation Diagnosis: Secondary ICD Codes: I48.0 - Paroxysmal atrial fibrillation Status: Acute (4) CAD (coronary artery disease) Diagnosis: Secondary ICD Codes: I25.10 - Atherosclerotic heart disease of [place] coronary artery without angina pectoris Status: Acute (5) PAD (peripheral artery disease) Diagnosis: Secondary ICD Codes: I73.9 - Peripheral arterial disease Status: Chronic Consultants Dr. Torres, neurology Procedures none Brief History This is a 71-year-old male patient with past medical history which includes coronary artery disease status post CABG 3 in 2001, paroxysmal atrial fibrillation, hypertension, hyperlipidemia, diabetes mellitus insulin-dependent , diabetic neuropathy, carotid stenosis status post CEA, PAD status post balloon angioplasty left common femoral and stenting of the left SFA 2014, right -sided intervention 2015, right toe amputation and recent TIAs. Patient presents to the emergency department yesterday with complaints of recurrent syncopal episodes. The patient reports he has had about 3 or 4 episodes of syncope this past week. These episodes usually occur when the patient goes from sitting to standing position. When he does so he becomes lightheaded, has darkened vision, then loses consciousness. Patient's reports that patient had an episode last Tuesday where he fell in the kitchen and then she noticed generalized shaking for 10 seconds. There was no loss of bowel or bladder control also no post-ictal state. Patient has not been able to drive, independently cook, do house chores or bill paying for about three years. Patient has had very little appetite for the past 3 months. Patient has been eating only cereal or soup for the past three months. He has lost approximally 40 pounds. He has not had any fevers, chills, cough, or recent illness. Patient denies chest pain, dyspnea, melena , hematochezia or hemoptysis. No history of DVT or PE. CBC/BMP: 06/25/17 0811 06/25/17 0811 Significant Findings Laboratory Tests Test 06/24/17 16:30 2/17/18 08:11 Hemoglobin 12.3 GM/DL (13.0-17.0) 11.7 GM/DL (13.0-17.0) Hematocrit 38.0 % (39.0-51.0) 36.1 % (39.0-51.0) Mean Corpuscular Volume 72.5 FL (80.0-100.0) 71.8 FL (80.0-100.0) Mean Corpuscular Hemoglobin 23.4 PG (27.0-34.0) 23.2 PG (27.0-34.0) Neutrophils (%) (Auto) 77.3 % (16.0-70.0) 75.2 % (16.0-70.0) Blood Urea Nitrogen 21 MG/DL (7-18) 19 MG/DL (7-18) Random Glucose 205 MG/DL (74-106) Carbon Dioxide Level 33.2 MEQ/L (21.0-32.0) 33.0 MEQ/L (21.0-32.0) Anion Gap 4 MEQ/L (5-15) Estimat Glomerular Filtration Rate 76 ML/MIN (>89) Total Creatine Kinase 37 U/L (39-308) Troponin I LESS THAN 0.02 NG/ML Imaging Last Impressions Chest X-Ray 06/24/17 1503 Signed Impressions: Service Date/Time: Saturday, June 24, 2017 15:20 - CONCLUSION: 1. Post median sternotomy changes. No acute cardiopulmonary findings identified. Napoleon Gage MD Head CT 06/24/17 0000 Signed Impressions: Service Date/Time: Saturday, June 24, 2017 16:13 - CONCLUSION: 1. Stable cortical and central atrophy. 2. Opacification of left sphenoid characteristic of a chronic sinusitis. This is new from the April 2017 exam, however. 3. Otherwise, no acute intracranial process Brian Groves MD PE at Discharge GENERAL: This is a thin, well-developed patient, in no apparent distress. CARDIOVASCULAR: Regular rate and rhythm RESPIRATORY: Clear to auscultation. Breath sounds equal bilaterally. GASTROINTESTINAL: Abdomen soft, non-tender, nondistended. MUSCULOSKELETAL: Extremities without clubbing, cyanosis, or edema. No joint tenderness, effusion, or edema noted. No calf tenderness. Negative Homans sign bilaterally. NEUROLOGICAL: Awake and alert. No focal deficits. Motor and sensory grossly within normal limits. 4-5 out of 5 muscle strength in all muscle groups. Normal speech. Hospital Course Syncope possible seizure activity Orthostatic hypotension Patient presents to the emergency department yesterday with complaints of recurrent syncopal episodes. The patient reports he has had about 3 or 4 episodes of syncope this past week. These episodes usually occur when the patient goes from sitting to standing position. Patient was recently admitted April 2017 at that time felt to have TIA like symptoms but also there is report of decreased appetite and weight loss. At that time patient was also evaluated by psychiatry who felt patient had dementia with psychosis and visual hallucinations patient was started on Haldol 0.5 mg by mouth daily. Review of outpatient records reveals recent 2-D echocardiogram May 31, 2017 : Normal left ventricular size and wall thickness the left ventricular systolic function is normal with an estimated ejection fraction of 60-65%. Left ventricular diastolic function parameters are normal. Mitral valve mild thickening of the mitral valve leaflets. Mitral annular calcification is present. Mild mitral valve regurgitation. No mitral valve stenosis. Aortic valve trileaflet aortic valve. Aortic valve sclerosis is present. Calcification of the non-coronary cusp. No aortic valve regurgitation and no aortic valve stenosis. Aortic valve mean gradient is 4 mmHg. Tricuspid valve is structurally normal with mild tricuspid valve regurgitation with estimated pulmonary arterial pressure is 34.4 mmHg. Normal estimated pulmonary pressures. Pulmonary valve no pulmonary valve regurgitation or stenosis Patient also had recent previous carotid ultrasound in neck CTA - Carotid US (04/21/17)--> Elevated peak systolic velocities of the internal carotid arteries suggesting 50-69% stenoses although the ICA/CCA ratios are not elevated in this range. Elevation of the peak systolic velocities in the external carotid arteries bilaterally (right worse than left) suggestive of greater than 70% stenosis on the right and 50-69% stenosis on the left. - CTA Neck (04/21/17)--> Noncalcified and calcified plaque in the carotid bifurcations without evidence of hemodynamically significant stenosis. Heavily calcified plaque along the aortic arch without significant stenosis involving the great vessels. Heavily calcified plaque at the origin of the left vertebral artery with suspected significant stenosis. - Orthostatic vital signs positive standing blood pressure 107/71 heart rate 91 , sitting blood pressure 73/51 heart rate 95, standing blood pressure 68/44 heart rate 97 - (06/26) Orthostatic vial signs continue to be positive will give additional liter of fluid - (06/27) Orthostatic vital signs continue to be positive believe this is due to autonomic dysfunction - Patient and do not want further work up and report they would not want surgery - recommending thigh high AKIRA hose, patient cautioned to change positions slowly wait 5-10 mins between position changes - Patient's does report that patient has had very little appetite for the past three months - will start Remeron (06/25) - Place AKIRA hose - normal saline at 84 cc an hour x 2L - Continuous cardiac telemetry - CT of the head reviewed and reveals stable cortical and central atrophy. Opacification of the left sphenoid characteristic of chronic sinusitis. This is new from April 2017 exam however otherwise no acute intracranial process. - Chest x-ray reviewed and reveals post medial sternal changes no acute cardiopulmonary findings identified - Patient's only recent medication change was April 2017 his Plavix was discontinued and patient was placed on Eliquis to aspirin due to TIA symptoms - EEG impression Mildly abnormal study consistent with a mild encephalopathy versus drowsiness. - PT evaluation requested - Consult palliative care for clarification of goals - DC to SNF after palliative consult Diabetes Patient takes Lantus 50 Units SQ BID Levemir 20 units SQ twice a day Check Accu-Cheks before meals at bedtime with medium dose sliding scale insulin coverage Diabetic diet Paroxysmal atrial fibrillation Patient's metoprolol 50 mg PO BID on hold due to hypotension. Will decrease down to Metoprolol 12.5 mg PO BID Continue Eliquis and Digoxin Dig level 1.1 Monitor continuous telemetry CAD (coronary artery disease) Continue patient's Eliquis and Atorvastatin PAD (peripheral artery disease) Continue home Eliquis, Cilostazol, Atorvastatin, Pt Condition on Discharge: Stable Discharge Disposition: Discharge to SNF Discharge Instructions DIET: Follow Instructions for: Heart Healthy Diet, Diabetic Diet Activities you can perform: Regular-No Restrictions, See Additionl Instruction Other Activity Instructions: change posititions slowly - fall precautions Follow up Referrals: PCP Follow-up - [address] Gibbons New Medications: Mirtazapine (Mirtazapine) 15 Mg Tab 30 MG PO HS for increase appetite, #30 TAB 0 Refills Continued Medications: Apixaban (Eliquis) 5 Mg Tab 5 MG PO BID for Blood Clot Prevention, #[address] (Aspirin Adult Low Strength) 81 Mg Tabdr 81 MG PO DAILY, TAB Atorvastatin (Atorvastatin) 40 Mg Tab 40 MG PO HS for Cholesterol Management, #30 TAB 0 Refills Cholecalciferol (Vitamin D3) 5,000 Unit Cap 5000 UNITS PO MOWEFR for Nutritional Supplement, #1 BOTTLE 0 Refills Take 1 capsule daily on Tuesday,Tuesday and Tuesday Cilostazol (Cilostazol) 100 Mg Tab 100 MG PO BID for INTERMITTENT CLAUDICATION, TAB 0 Refills Digoxin (Digoxin) 0.125 Mg Tab 0.125 MG PO DAILY for Regulate Heart Beat, #30 TAB [address] (Cymbalta DR) 60 Mg Capdr 60 MG PO HS, #30 CAP 0 Refills Haloperidol (Haloperidol) 0.5 Mg Tab 0.5 MG PO DAILY@1600 for dementia with agitation, #30 TAB Insulin Glargine Inj (Lantus Inj) 100 Unit/Ml Inj 50 UNIT SQ BID Insulin Human Regular Inj (Novolin R Inj) 1,000 Unit/10 Ml Vial 0 SQ DIRECTED for Blood Sugar Management, #10 ML 0 Refills Sliding Scale As Directed. Lansoprazole (Prevacid 24Hr) 15 Mg Cap 15 MG PO DAILY Metoprolol Tartrate (Metoprolol Tartrate) 50 Mg Tab 50 MG PO BID, #60 TAB 0 Refills Multiple Vitamins W/ Minerals (Centrum Silver) 1 Chw Chw 1 TAB PO DAILY for Nutritional Supplement [place]-3 Fatty Acids (Fish Oil) 500 Mg Cap 500 MG PO DAILY Additional Information Patient examined. Assessment and plan formulated with Jerica Vasquez PA-C. I agree with the above. Jerica Vasquez Jun 26, 2017 12:58 Gumaro Garcia DO Jun 27, 2017 01:12
[2017-06-26] MEDS ORDERED: SODIUM CHLOR 0.9% 1000 ML INJ 1,000 ML IV SCH (13:45)
--- NOTE | 2017-06-26 13:58 | HHI.PR ---
Subjective Remarks Patient continues to become dizzy with sitting Objective Vitals Vital Signs Date Time Temp Pulse Resp B/P (MAP) Pulse Ox O2 Delivery O2 Flow Rate FiO2 06/26/17 12:05 97.5 75 18 139/65 (89) 98 06/26/17 08:15 97.6 94 18 119/72 (88) 98 06/26/17 04:00 97.2 84 20 106/51 (69) 98 06/26/17 00:06 96 06/26/17 00:00 97.7 91 20 143/72 (95) 98 06/25/17 20:49 95 06/25/17 19:53 97.6 90 20 160/73 (102) 98 06/25/17 17:29 89 06/25/17 17:03 98.0 84 17 104/69 (81) 98 Result Diagram: 06/25/17 0811 06/25/17 0811 Other Results Laboratory Tests Test 06/24/17 16:30 06/25/17 08:11 White Blood Count 9.5 TH/MM3 8.9 TH/MM3 Red Blood Count 5.24 MIL/MM3 5.03 MIL/MM3 Hemoglobin 12.3 GM/DL 11.7 GM/DL Hematocrit 38.0 % 36.1 % Mean Corpuscular Volume 72.5 FL 71.8 FL Mean Corpuscular Hemoglobin 23.4 PG 23.2 PG Mean Corpuscular Hemoglobin Concent 32.3 % 32.3 % Red Cell Distribution Width 16.9 % 16.9 % Platelet Count 202 TH/MM3 191 TH/MM3 Mean Platelet Volume 7.5 FL 7.1 FL Neutrophils (%) (Auto) 77.3 % 75.2 % Lymphocytes (%) (Auto) 14.5 % 15.0 % Monocytes (%) (Auto) 6.7 % 7.9 % Eosinophils (%) (Auto) 0.8 % 1.3 % Basophils (%) (Auto) 0.7 % 0.6 % Neutrophils # (Auto) 7.4 TH/MM3 6.7 TH/MM3 Lymphocytes # (Auto) 1.4 TH/MM3 1.3 TH/MM3 Monocytes # (Auto) 0.6 TH/MM3 0.7 TH/MM3 Eosinophils # (Auto) 0.1 TH/MM3 0.1 TH/MM3 Basophils # (Auto) 0.1 TH/MM3 0.1 TH/MM3 CBC Comment DIFF FINAL DIFF FINAL Differential Comment Prothrombin Time 11.4 SEC Prothromb Time International Ratio 1.1 RATIO Activated Partial Thromboplast Time 27.5 SEC Blood Urea Nitrogen 21 MG/DL 19 MG/DL Creatinine 0.97 MG/DL 0.81 MG/DL Random Glucose 205 MG/DL 83 MG/DL Total Protein 7.2 GM/DL Albumin 3.6 GM/DL Calcium Level 9.4 MG/DL 9.3 MG/DL Magnesium Level 2.3 MG/DL Alkaline Phosphatase 109 U/L Aspartate Amino Transf (AST/SGOT) 18 U/L Alanine Aminotransferase (ALT/SGPT) 24 U/L Total Bilirubin 0.6 MG/DL Sodium Level 136 MEQ/L 139 MEQ/L Potassium Level 4.6 MEQ/L 4.3 MEQ/L Chloride Level 99 MEQ/L 100 MEQ/L Carbon Dioxide Level 33.2 MEQ/L 33.0 MEQ/L Anion Gap 4 MEQ/L 6 MEQ/L Estimat Glomerular Filtration Rate 76 ML/MIN 94 ML/MIN Total Creatine Kinase 37 U/L Troponin I LESS THAN 0.02 NG/ML Free Thyroxine 0.79 NG/DL Thyroid Stimulating Hormone 3rd Gen 1.800 uIU/ML Digoxin Level 1.1 NG/ML Imaging Last Impressions Chest X-Ray 06/24/17 1503 Signed Impressions: Service Date/Time: Saturday, June 24, 2017 15:20 - CONCLUSION: 1. Post median sternotomy changes. No acute cardiopulmonary findings identified. Napoleon Gage MD Head CT 06/24/17 0000 Signed Impressions: Service Date/Time: Saturday, June 24, 2017 16:13 - CONCLUSION: 1. Stable cortical and central atrophy. 2. Opacification of left sphenoid characteristic of a chronic sinusitis. This is new from the April 2017 exam, however. 3. Otherwise, no acute intracranial process Brian Groves MD Objective Remarks GENERAL: This is a thin, well-developed patient, in no apparent distress. CARDIOVASCULAR: Regular rate and rhythm RESPIRATORY: Clear to auscultation. Breath sounds equal bilaterally. GASTROINTESTINAL: Abdomen soft, non-tender, nondistended. MUSCULOSKELETAL: Extremities without clubbing, cyanosis, or edema. No joint tenderness, effusion, or edema noted. No calf tenderness. Negative Homans sign bilaterally. NEUROLOGICAL: Awake and alert. No focal deficits. Motor and sensory grossly within normal limits. 4-5 out of 5 muscle strength in all muscle groups. Normal speech. Procedures none A/P Problem List: (1) Syncope ICD Codes: R55 - Syncope and collapse Status: Acute Plan: Syncope possible seizure activity Orthostatic hypotension Patient presents to the emergency department yesterday with complaints of recurrent syncopal episodes. The patient reports he has had about 3 or 4 episodes of syncope this past week. These episodes usually occur when the patient goes from sitting to standing position. Patient was recently admitted April 2017 at that time felt to have TIA like symptoms but also there is report of decreased appetite and weight loss. At that time patient was also evaluated by psychiatry who felt patient had dementia with psychosis and visual hallucinations patient was started on Haldol 0.5 mg by mouth daily. Review of outpatient records reveals recent 2-D echocardiogram May 31, 2017 : Normal left ventricular size and wall thickness the left ventricular systolic function is normal with an estimated ejection fraction of 60-65%. Left ventricular diastolic function parameters are normal. Mitral valve mild thickening of the mitral valve leaflets. Mitral annular calcification is present. Mild mitral valve regurgitation. No mitral valve stenosis. Aortic valve trileaflet aortic valve. Aortic valve sclerosis is present. Calcification of the non-coronary cusp. No aortic valve regurgitation and no aortic valve stenosis. Aortic valve mean gradient is 4 mmHg. Tricuspid valve is structurally normal with mild tricuspid valve regurgitation with estimated pulmonary arterial pressure is 34.4 mmHg. Normal estimated pulmonary pressures. Pulmonary valve no pulmonary valve regurgitation or stenosis Patient also had recent previous carotid ultrasound in neck CTA - Carotid US (04/21/17)--> Elevated peak systolic velocities of the internal carotid arteries suggesting 50-69% stenoses although the ICA/CCA ratios are not elevated in this range. Elevation of the peak systolic velocities in the external carotid arteries bilaterally (right worse than left) suggestive of greater than 70% stenosis on the right and 50-69% stenosis on the left. - CTA Neck (04/21/17)--> Noncalcified and calcified plaque in the carotid bifurcations without evidence of hemodynamically significant stenosis. Heavily calcified plaque along the aortic arch without significant stenosis involving the great vessels. Heavily calcified plaque at the origin of the left vertebral artery with suspected significant stenosis. - Orthostatic vital signs positive standing blood pressure 107/71 heart rate 91 , sitting blood pressure 73/51 heart rate 95, standing blood pressure 68/44 heart rate 97 - (06/26) Orthostatic vial signs continue to be positive will give additional liter of fluid - recheck orthostatic vital signs on AM - Patient's does report that patient has had very little appetite for the past three months - will start Remeron (06/25) - Place AKIRA hose - normal saline at 84 cc an hour - Continuous cardiac telemetry - CT of the head reviewed and reveals stable cortical and central atrophy. Opacification of the left sphenoid characteristic of chronic sinusitis. This is new from April 2017 exam however otherwise no acute intracranial process. - Chest x-ray reviewed and reveals post medial sternal changes no acute cardiopulmonary findings identified - Patient's only recent medication change was April 2017 his Plavix was discontinued and patient was placed on Eliquis to aspirin due to TIA symptoms - EEG impression Mildly abnormal study consistent with a mild encephalopathy versus drowsiness. - PT evaluation requested (2) Diabetes ICD Codes: E11.9 - Type 2 diabetes mellitus without complications Status: Chronic Plan: Patient takes Lantus 50 Units SQ BID Levemir 20 units SQ twice a day Check Accu-Cheks before meals at bedtime with medium dose sliding scale insulin coverage Diabetic diet (3) Paroxysmal atrial fibrillation ICD Codes: I48.0 - Paroxysmal atrial fibrillation Status: Acute Plan: Patient's metoprolol 50 mg PO BID on hold due to hypotension. Will decrease down to Metoprolol 12.5 mg PO BID Continue Eliquis and Digoxin Dig level 1.1 Monitor continuous telemetry (4) CAD (coronary artery disease) ICD Codes: I25.10 - Atherosclerotic heart disease of [place] coronary artery without angina pectoris Status: Acute Plan: Continue patient's Eliquis and Atorvastatin (5) PAD (peripheral artery disease) ICD Codes: I73.9 - Peripheral arterial disease Status: Chronic Plan: Continue home Eliquis, Cilostazol, Atorvastatin, Assessment and Plan Patient examined. Assessment and plan formulated with Jerica Vasquez PA-C. I agree with the above. Problem Qualifiers (1) Syncope: Qualified Codes: R55 - Syncope and collapse Jerica Vasquez Jun 26, 2017 13:58 Gumaro Garcia DO Jun 27, 2017 01:11
--- NOTE | 2017-06-26 15:09 | RADRPT ---
EXAM DATE/TIME: 06/26/2017 14:22 [facility] COMPARISON: CHEST SINGLE AP, June 24, 2017, 15:20. INDICATIONS : Shortness of breath. MEDICAL HISTORY : Cardiovascular disease. Hypertension. Hernia hiatal. Diabetes mellitus. GERD. SURGICAL HISTORY : CABG. ENCOUNTER: Subsequent ACUITY: 1 day PAIN SCORE: 0/10 LOCATION: Bilateral chest FINDINGS: A single view of the chest demonstrates the lungs to be symmetrically aerated without evidence of mas s, infiltrate or effusion. The cardiomediastinal contours are unremarkable. Osseous structures are intact. CONCLUSION: Normal examination. Numerous sternal wires Eliecer Long MD on June 26, 2017 at 15:07 Board Certified Radiologist. This report was verified electronically.
[2017-06-26] MEDS: HALOPERIDOL 0.5 MG TAB PO SCH (16:00)
--- NOTE | 2017-06-26 17:00 | ECHRPT ---
Indication: SYNCOPE CONCLUSIONS Normal left ventricular size. Mild concentric left ventricular hypertrophy. The left ventricular systolic function is hyperdynamic with an estimated ejection fraction in the ra nge of 65- 70%. The left atrial size is mildly dilated. The right atrial size is mildly dilated. Mild thickening of the mitral valve leaflets. Mitral annular calcification. Mild mitral valve regurgitation. Aortic sclerosis. The estimated pulmonary arterial pressure is 34 mmHg. There is mild tricuspid valve regurgitation. BP: 106 / 51 HR: 84 Rhythm: Sinus MEASUREMENTS (Male / Female) Normal Values Technical Quality:Fair 2D ECHO LV Diastolic Diameter PLAX 4.4 cm 4.2 - 5.9 / 3.9 - 5.3 cm LV Systolic Diameter PLAX 2.9 cm IVS Diastolic Thickness 1.4 cm 0.6 - 1.0 / 0.6 - 0.9 cm LVPW Diastolic Thickness 1.4 cm 0.6 - 1.0 / 0.6 - 0.9 cm LV Relative Wall Thickness 0.6 RV Internal Dim ED PLAX 2.0 cm LVOT Diameter 2.0 cm Aortic Root Diameter 2.9 cm LA Systolic Diameter LX 3.7 cm 3.0 - 4.0 / 2.7 - 3.8 cm M-MODE AV Cusp Separation MM 2.2 cm DOPPLER AV Peak Velocity 148.6 cm/s AV Peak Gradient 8.8 mmHg AV Mean Gradient 4.8 mmHg AV Velocity Time Integral 25.5 cm LVOT Peak Velocity 73.9 cm/s LVOT Peak Gradient 2.2 mmHg LVOT Velocity Time Integral 13.5 cm AV Area Cont Eq vti 1.7 cm AV Area Cont Eq pk 1.6 cm Mitral E Point Velocity 83.2 cm/s LV E' Lateral Velocity 13.5 cm/s Mitral E to LV E' Lateral Ratio 6.2 LV E' Septal Velocity 4.7 cm/s Mitral E to LV E' Septal Ratio 17.8 TR Peak Velocity 246.0 cm/s TR Peak Gradient 24.2 mmHg Right Atrial Pressure 10.0 mmHg Pulmonary Artery Systolic Pressu 34.2 mmHg Right Ventricular Systolic Press 34.2 mmHg PV Peak Velocity 56.4 cm/s PV Peak Gradient 1.3 mmHg FINDINGS LEFT VENTRICLE Normal left ventricular size. Mild concentric left ventricular hypertrophy. The left ventricular systolic function is hyperdynamic with an estimated ejection fraction in the ra nge of 65- 70%. RIGHT VENTRICLE Normal right ventricular size and systolic function. LEFT ATRIUM The left atrial size is mildly dilated. RIGHT ATRIUM The right atrial size is mildly dilated. ATRIAL SEPTUM No atrial level shunt is demonstrated by color flow Doppler interrogation. AORTA The aortic root and proximal ascending aorta are not well visualized. MITRAL VALVE Mild thickening of the mitral valve leaflets. Mild mitral annular calcification. Mild mitral valve regurgitation. AORTIC VALVE Trileaflet aortic valve. Calcification of the non-coronary cusp. TRICUSPID VALVE The estimated pulmonary arterial pressure is 34.2 mmHg. There is mild tricuspid valve regurgitation. PULMONARY VALVE No pulmonary valve regurgitation or stenosis. VESSELS The inferior vena cava is normal in size. PERICARDIUM No pericardial effusion. Shakila Rodrigues MD, FACC (Electronically Signed) Final Date:26 June 2017 16:59
[2017-06-26] MEDS: DULoxetine HCl DR 60 MG CAP PO SCH (20:00)
[2017-06-26] MEDS: MIRTAZAPINE 15 MG TAB PO SCH (20:00)
[2017-06-26] MEDS: ATORVASTATIN 40 MG TAB PO SCH (20:01)
[2017-06-27] VITALS (10 sets, daily range): BP systolic 87–144; BP diastolic 52–75; PULSE 80–119; RESP 17–20; TEMP 97.3–97.9; O2SAT 94–99
[2017-06-27] MEDS: DIGOXIN 0.125 MG TAB PO SCH (09:25)
[2017-06-27] MEDS: PANTOPRAZOLE SOD 20 MG DELAYED RELEASE TAB PO SCH (09:25)
[2017-06-27] MEDS: CILOSTAZOL 100 MG TAB PO SCH (09:25)
[2017-06-27] MEDS: APIXABAN 5 MG TABLET PO SCH (09:25)
[2017-06-27] MEDS: METOPROLOL TARTRATE 25 MG TAB PO SCH (09:25)
[2017-06-27] MEDS: INSULIN DETEMIR 100 UNITS/ML VIAL SQ SCH (09:27)
[2017-06-27] MEDS: INSULIN ASPART SUPPLEMENTAL SCALE SQ SCH ×3 (09:33→17:13)
[2017-06-27] MEDS: SODIUM CHLORIDE 0.9% FLUSH 10 ML FLUSH IV FLUSH SCH (09:36)
--- NOTE | 2017-06-27 10:58 | HHI.PR ---
Objective Vitals Vital Signs Date Time Temp Pulse Resp B/P (MAP) Pulse Ox O2 Delivery O2 Flow Rate FiO2 06/27/17 08:19 97.4 93 18 135/75 (95) 98 06/27/17 04:00 97.3 80 20 122/58 (79) 96 06/27/17 00:04 104 06/27/17 00:00 97.9 88 20 144/73 (96) 94 06/26/17 20:00 98.2 79 20 116/58 (77) 95 06/26/17 16:05 97.5 92 18 116/61 (79) 98 06/26/17 12:05 97.5 75 18 139/65 (89) 98 Result Diagram: 06/25/17 0811 06/25/17 0811 Other Results Laboratory Tests Test 06/24/17 16:30 06/25/17 08:11 White Blood Count 9.5 TH/MM3 8.9 TH/MM3 Red Blood Count 5.24 MIL/MM3 5.03 MIL/MM3 Hemoglobin 12.3 GM/DL 11.7 GM/DL Hematocrit 38.0 % 36.1 % Mean Corpuscular Volume 72.5 FL 71.8 FL Mean Corpuscular Hemoglobin 23.4 PG 23.2 PG Mean Corpuscular Hemoglobin Concent 32.3 % 32.3 % Red Cell Distribution Width 16.9 % 16.9 % Platelet Count 202 TH/MM3 191 TH/MM3 Mean Platelet Volume 7.5 FL 7.1 FL Neutrophils (%) (Auto) 77.3 % 75.2 % Lymphocytes (%) (Auto) 14.5 % 15.0 % Monocytes (%) (Auto) 6.7 % 7.9 % Eosinophils (%) (Auto) 0.8 % 1.3 % Basophils (%) (Auto) 0.7 % 0.6 % Neutrophils # (Auto) 7.4 TH/MM3 6.7 TH/MM3 Lymphocytes # (Auto) 1.4 TH/MM3 1.3 TH/MM3 Monocytes # (Auto) 0.6 TH/MM3 0.7 TH/MM3 Eosinophils # (Auto) 0.1 TH/MM3 0.1 TH/MM3 Basophils # (Auto) 0.1 TH/MM3 0.1 TH/MM3 CBC Comment DIFF FINAL DIFF FINAL Differential Comment Prothrombin Time 11.4 SEC Prothromb Time International Ratio 1.1 RATIO Activated Partial Thromboplast Time 27.5 SEC Blood Urea Nitrogen 21 MG/DL 19 MG/DL Creatinine 0.97 MG/DL 0.81 MG/DL Random Glucose 205 MG/DL 83 MG/DL Total Protein 7.2 GM/DL Albumin 3.6 GM/DL Calcium Level 9.4 MG/DL 9.3 MG/DL Magnesium Level 2.3 MG/DL Alkaline Phosphatase 109 U/L Aspartate Amino Transf (AST/SGOT) 18 U/L Alanine Aminotransferase (ALT/SGPT) 24 U/L Total Bilirubin 0.6 MG/DL Sodium Level 136 MEQ/L 139 MEQ/L Potassium Level 4.6 MEQ/L 4.3 MEQ/L Chloride Level 99 MEQ/L 100 MEQ/L Carbon Dioxide Level 33.2 MEQ/L 33.0 MEQ/L Anion Gap 4 MEQ/L 6 MEQ/L Estimat Glomerular Filtration Rate 76 ML/MIN 94 ML/MIN Total Creatine Kinase 37 U/L Troponin I LESS THAN 0.02 NG/ML Free Thyroxine 0.79 NG/DL Thyroid Stimulating Hormone 3rd Gen 1.800 uIU/ML Digoxin Level 1.1 NG/ML Imaging Last Impressions Chest X-Ray 06/24/17 1503 Signed Impressions: Service Date/Time: Saturday, June 24, 2017 15:20 - CONCLUSION: 1. Post median sternotomy changes. No acute cardiopulmonary findings identified. Napoleon Gage MD Head CT 06/24/17 0000 Signed Impressions: Service Date/Time: Saturday, June 24, 2017 16:13 - CONCLUSION: 1. Stable cortical and central atrophy. 2. Opacification of left sphenoid characteristic of a chronic sinusitis. This is new from the April 2017 exam, however. 3. Otherwise, no acute intracranial process Brian Groves MD Objective Remarks GENERAL: This is a thin, well-developed patient, in no apparent distress. CARDIOVASCULAR: Regular rate and rhythm RESPIRATORY: Clear to auscultation. Breath sounds equal bilaterally. GASTROINTESTINAL: Abdomen soft, non-tender, nondistended. MUSCULOSKELETAL: Extremities without clubbing, cyanosis, or edema. No joint tenderness, effusion, or edema noted. No calf tenderness. Negative Homans sign bilaterally. NEUROLOGICAL: Awake and alert. No focal deficits. Motor and sensory grossly within normal limits. 4-5 out of 5 muscle strength in all muscle groups. Normal speech. Procedures none A/P Problem List: (1) Syncope ICD Codes: R55 - Syncope and collapse Status: Acute Plan: Syncope possible seizure activity Orthostatic hypotension Patient presents to the emergency department yesterday with complaints of recurrent syncopal episodes. The patient reports he has had about 3 or 4 episodes of syncope this past week. These episodes usually occur when the patient goes from sitting to standing position. Patient was recently admitted April 2017 at that time felt to have TIA like symptoms but also there is report of decreased appetite and weight loss. At that time patient was also evaluated by psychiatry who felt patient had dementia with psychosis and visual hallucinations patient was started on Haldol 0.5 mg by mouth daily. Review of outpatient records reveals recent 2-D echocardiogram May 31, 2017 : Normal left ventricular size and wall thickness the left ventricular systolic function is normal with an estimated ejection fraction of 60-65%. Left ventricular diastolic function parameters are normal. Mitral valve mild thickening of the mitral valve leaflets. Mitral annular calcification is present. Mild mitral valve regurgitation. No mitral valve stenosis. Aortic valve trileaflet aortic valve. Aortic valve sclerosis is present. Calcification of the non-coronary cusp. No aortic valve regurgitation and no aortic valve stenosis. Aortic valve mean gradient is 4 mmHg. Tricuspid valve is structurally normal with mild tricuspid valve regurgitation with estimated pulmonary arterial pressure is 34.4 mmHg. Normal estimated pulmonary pressures. Pulmonary valve no pulmonary valve regurgitation or stenosis Patient also had recent previous carotid ultrasound in neck CTA - Carotid US (04/21/17)--> Elevated peak systolic velocities of the internal carotid arteries suggesting 50-69% stenoses although the ICA/CCA ratios are not elevated in this range. Elevation of the peak systolic velocities in the external carotid arteries bilaterally (right worse than left) suggestive of greater than 70% stenosis on the right and 50-69% stenosis on the left. - CTA Neck (04/21/17)--> Noncalcified and calcified plaque in the carotid bifurcations without evidence of hemodynamically significant stenosis. Heavily calcified plaque along the aortic arch without significant stenosis involving the great vessels. Heavily calcified plaque at the origin of the left vertebral artery with suspected significant stenosis. - Orthostatic vital signs positive standing blood pressure 107/71 heart rate 91 , sitting blood pressure 73/51 heart rate 95, standing blood pressure 68/44 heart rate 97 - (06/26) Orthostatic vial signs continue to be positive will give additional liter of fluid - (06/27) Orthostatic vial signs - Patient's does report that patient has had very little appetite for the past three months - started on Remeron - Place AKIRA hose - normal saline at 84 cc an hour x 2 L - Continuous cardiac telemetry - CT of the head reviewed and reveals stable cortical and central atrophy. Opacification of the left sphenoid characteristic of chronic sinusitis. This is new from April 2017 exam however otherwise no acute intracranial process. - Chest x-ray reviewed and reveals post medial sternal changes no acute cardiopulmonary findings identified - Patient's only recent medication change was April 2017 his Plavix was discontinued and patient was placed on Eliquis to aspirin due to TIA symptoms - EEG interpretation Mildly abnormal study consistent with a mild encephalopathy versus drowsiness - PT evaluation requested (2) Diabetes ICD Codes: E11.9 - Type 2 diabetes mellitus without complications Status: Chronic Plan: Patient takes Lantus 50 Units SQ BID Levemir 20 units SQ twice a day Check Accu-Cheks before meals at bedtime with medium dose sliding scale insulin coverage Diabetic diet (3) Paroxysmal atrial fibrillation ICD Codes: I48.0 - Paroxysmal atrial fibrillation Status: Acute Plan: Patient's metoprolol 50 mg PO BID on hold due to hypotension. Will decrease down to Metoprolol 12.5 mg PO BID Continue Eliquis and Digoxin Dig level 1.1 Monitor continuous telemetry (4) CAD (coronary artery disease) ICD Codes: I25.10 - Atherosclerotic heart disease of [place] coronary artery without angina pectoris Status: Acute Plan: Continue patient's Eliquis and Atorvastatin (5) PAD (peripheral artery disease) ICD Codes: I73.9 - Peripheral arterial disease Status: Chronic Plan: Continue home Eliquis, Cilostazol, Atorvastatin, Assessment and Plan Patient examined. Assessment and plan formulated with Jerica Vasquez PA-C. I agree with the above. Problem Qualifiers (1) Syncope: Qualified Codes: R55 - Syncope and collapse Jerica Vasquez Jun 27, 2017 10:58
--- NOTE | 2017-06-27 14:37 | PD.CONS ---
Consult Service Palliative Care Consult Requested By Christina GUSTAFSON . Primary Care Physician Ismael Gibbons D.O. Reason for Consultation a. To assist with evaluation and management of symptoms including: b. To assist medical decision maker(s) with: better understanding of current medical conditions; weighing benefits/burdens of medical treatment options; making medical treatment decisions. HPI History of Present Illness This 71-year-old male presented to the ED 06/24/17 for evaluation of frequent syncopal episodes. Patient reported to have 3 or 4 episodes that week to occur when he goes from sitting to standing. He then reports becoming lightheaded with darkened vision and then loses consciousness. No fever, chills, cough or recent illness. No chest pain or dyspnea. No hemoptysis no melena or hematochezia. * In the ED noted with bicarbonate 33 glucose 205. CBC unremarkable. Cardiac enzymes negative. Dig level I.1. CT brain with no acute process, stable cortical and central atrophy. CXR notes post median sternotomy changes no acute cardiopulmonary findings. He denies chest pain. He is on Eliquis for A. fib. Orthostatic vital signs noted. He was admitted for further cardiac evaluation and telemetry monitoring and possible echo. * * * Draft/pending/template Past Family Social History Coded Allergies: Sulfa (Sulfonamide Antibiotics) (Unverified Allergy, Severe, Hives, ) Current Medications Medications (Trade) Dose Ordered Sig/Jocelyne Route Start Time Stop Time Status Last Admin (NS Flush) 2 ml UNSCH PRN IV FLUSH 06/24/17 17:45 (NS Flush) 2 ml BID IV FLUSH 06/24/17 21:00 06/27/17 09:36 (Tylenol) 650 mg Q4H PRN PO 06/24/17 17:45 06/26/17 20:01 (Zofran Inj) 4 mg Q6H PRN IVP 06/24/17 17:45 (Narcan Inj) 0.4 mg UNSCH PRN IV PUSH 06/24/17 17:45 (Milk Of Magnesia Liq) 30 ml Q12H PRN PO 06/24/17 17:45 (Eliquis) 5 mg BID PO 06/24/17 21:00 06/27/17 09:25 (Lipitor) 40 mg HS PO 06/24/17 21:00 06/26/17 20:01 (Pletal) 100 mg BID PO 06/24/17 21:00 06/27/17 09:25 (Lanoxin) 0.125 mg DAILY PO 06/25/17 09:00 06/27/17 09:25 (Cymbalta Dr) 60 mg HS PO 06/24/17 21:00 06/26/17 20:00 (Haldol) 0.5 mg DAILY@1600 PO 06/25/17 16:00 06/25/17 16:24 (Protonix) 20 mg DAILY PO 06/25/17 09:00 06/27/17 09:25 (Levemir Inj) 20 units BID SQ 06/24/17 21:00 06/27/17 09:27 (NovoLOG SUPPLEMENTAL SCALE) 1 ACHS SLIDING SCALE SQ 06/24/17 21:00 06/27/17 09:33 (Remeron) 30 mg HS PO 06/25/17 21:00 06/26/17 20:00 (Lopressor) 12.5 mg Q12HR PO 06/25/17 21:00 06/27/17 09:25 (Pill Splitter) 1 ea UNSCH PRN OTHER 06/25/17 13:45 06/25/17 21:31 Substance Use Tobacco: Alcohol: Prescription med abuse: Illicits: Physical Exam Vital Signs Date Time Temp Pulse Resp B/P (MAP) Pulse Ox O2 Delivery O2 Flow Rate FiO2 06/27/17 12:13 97.3 92 17 97 06/27/17 11:00 87/54 (65) 06/27/17 10:47 119/62 (81) 06/27/17 10:45 97/52 (67) 06/27/17 08:19 97.4 93 18 135/75 (95) 98 06/27/17 04:00 97.3 80 20 122/58 (79) 96 06/27/17 00:04 104 06/27/17 00:00 97.9 88 20 144/73 (96) 94 06/26/17 20:00 98.2 79 20 116/58 (77) 95 06/26/17 16:05 97.5 92 18 116/61 (79) 98 06/27/17 06/28/17 19:00 07:00 Intake Total 240 ml Output Total 850 ml Balance -610 ml Intake Oral 240 ml Output Urine Total 850 ml Exam CONSTITUTIONAL/GENERAL: This is an adequately nourished patient, in no apparent distress. TUBES/LINES/DRAINS: SKIN: No jaundice, rashes, or lesions. Ecchymoses on upper extremities. No wounds seen anteriorly. Skin temperature appropriate. Not diaphoretic. HEAD: Atraumatic. Normocephalic. EYES: Pupils equal and round and reactive. Extraocular motions intact. No scleral icterus. No injection or drainage. Fundi not examined. ENT: Hearing grossly normal. Nose without bleeding or purulent drainage. Throat without visible erythema, exudates, masses, or lesions. NECK: Trachea midline. Supple, nontender. No palpable thyroid enlargement or nodularity. CARDIOVASCULAR: Regular rate and rhythm without murmurs, gallops, or rubs. No JVD. Peripheral pulses symmetric. RESPIRATORY/CHEST: Symmetric, unlabored respirations. Clear to auscultation. Breath sounds equal bilaterally. No wheezes, rales, or rhonchi. GASTROINTESTINAL: Abdomen soft, non-tender, nondistended. No hepato-splenomegaly , or palpable masses. No guarding. Bowel sounds present. GENITOURINARY: Without palpable bladder distension. Ochoa catheter in place. MUSCULOSKELETAL: Extremities without clubbing, cyanosis, or edema. No joint tenderness or effusion noted. No calf tenderness. No mottling or clubbing. LYMPHATICS: No palpable cervical or supraclavicular adenopathy. NEUROLOGICAL: Awake and alert. Motor and sensory grossly within normal limits. Follows commands. Cognitively sharp. Moves all extremities. PSYCHIATRIC: No obvious anxiety/depression. no apparent hallucinations or other psychotic thought process. Diagnostic Tests Laboratory Laboratory Tests Test 06/24/17 16:30 06/25/17 08:11 White Blood Count 9.5 TH/MM3 (4.0-11.0) 8.9 TH/MM3 (4.0-11.0) Red Blood Count 5.24 MIL/MM3 (4.50-5.90) 5.03 MIL/MM3 (4.50-5.90) Hemoglobin 12.3 GM/DL (13.0-17.0) 11.7 GM/DL (13.0-17.0) Hematocrit 38.0 % (39.0-51.0) 36.1 % (39.0-51.0) Mean Corpuscular Volume 72.5 FL (80.0-100.0) 71.8 FL (80.0-100.0) Mean Corpuscular Hemoglobin 23.4 PG (27.0-34.0) 23.2 PG (27.0-34.0) Mean Corpuscular Hemoglobin Concent 32.3 % (32.0-36.0) 32.3 % (32.0-36.0) Red Cell Distribution Width 16.9 % (11.6-17.2) 16.9 % (11.6-17.2) Platelet Count 202 TH/MM3 (150-450) 191 TH/MM3 (150-450) Mean Platelet Volume 7.5 FL (7.0-11.0) 7.1 FL (7.0-11.0) Neutrophils (%) (Auto) 77.3 % (16.0-70.0) 75.2 % (16.0-70.0) Lymphocytes (%) (Auto) 14.5 % (9.0-44.0) 15.0 % (9.0-44.0) Monocytes (%) (Auto) 6.7 % (0.0-8.0) 7.9 % (0.0-8.0) Eosinophils (%) (Auto) 0.8 % (0.0-4.0) 1.3 % (0.0-4.0) Basophils (%) (Auto) 0.7 % (0.0-2.0) 0.6 % (0.0-2.0) Neutrophils # (Auto) 7.4 TH/MM3 (1.8-7.7) 6.7 TH/MM3 (1.8-7.7) Lymphocytes # (Auto) 1.4 TH/MM3 (1.0-4.8) 1.3 TH/MM3 (1.0-4.8) Monocytes # (Auto) 0.6 TH/MM3 (0-0.9) 0.7 TH/MM3 (0-0.9) Eosinophils # (Auto) 0.1 TH/MM3 (0-0.4) 0.1 TH/MM3 (0-0.4) Basophils # (Auto) 0.1 TH/MM3 (0-0.2) 0.1 TH/MM3 (0-0.2) CBC Comment DIFF FINAL DIFF FINAL Differential Comment Prothrombin Time 11.4 SEC (9.8-11.6) Prothromb Time International Ratio 1.1 RATIO Activated Partial Thromboplast Time 27.5 SEC (24.3-30.1) Blood Urea Nitrogen 21 MG/DL (7-18) 19 MG/DL (7-18) Creatinine 0.97 MG/DL (0.60-1.30) 0.81 MG/DL (0.60-1.30) Random Glucose 205 MG/DL (74-106) 83 MG/DL (74-106) Total Protein 7.2 GM/DL (6.4-8.2) Albumin 3.6 GM/DL (3.4-5.0) Calcium Level 9.4 MG/DL (8.5-10.1) 9.3 MG/DL (8.5-10.1) Magnesium Level 2.3 MG/DL (1.5-2.5) Alkaline Phosphatase 109 U/L (45-117) Aspartate Amino Transf (AST/SGOT) 18 U/L (15-37) Alanine Aminotransferase (ALT/SGPT) 24 U/L (12-78) Total Bilirubin 0.6 MG/DL (0.2-1.0) Sodium Level 136 MEQ/L (136-145) 139 MEQ/L (136-145) Potassium Level 4.6 MEQ/L (3.5-5.1) 4.3 MEQ/L (3.5-5.1) Chloride Level 99 MEQ/L (98-107) 100 MEQ/L (98-107) Carbon Dioxide Level 33.2 MEQ/L (21.0-32.0) 33.0 MEQ/L (21.0-32.0) Anion Gap 4 MEQ/L (5-15) 6 MEQ/L (5-15) Estimat Glomerular Filtration Rate 76 ML/MIN (>89) 94 ML/MIN (>89) Total Creatine Kinase 37 U/L (39-308) Troponin I LESS THAN 0.02 NG/ML Free Thyroxine 0.79 NG/DL (0.76-1.46) Thyroid Stimulating Hormone 3rd Gen 1.800 uIU/ML (0.358-3.740) Digoxin Level 1.1 NG/ML (0.8-2.0) Result Diagram: 06/25/17 0811 06/25/17 0811 Patient/Family Conference Issues Discussed: * Palliative care role, purpose, approach * Additional medical, psychosocial, and spiritual history * Patients general health, functional status, and cognitive changes in the months leading up to the current hospitalization * Patient/family understanding of the current medical problems * Patient/family understanding of prognosis * Patients goals of care as best understood from advance directives and/or conversations and/or values * Current medical treatment options and benefits/burdens of those options * Likely scenarios comparing ongoing aggressive care with a transition to comfort measures only * Questions answered to the best of my ability * Palliative care contact information provided Assessment and Plan Pertinent Non-Medical Issues Psychosocial: Spiritual: Legal: Ethical issues impacting care: Plan Draft/pending/template Legal decision maker: Goals: CODE STATUS: SYMPTOMS: -- -- Palliative care will continue to follow during hospital course as condition evolves, to assist patient/decision-maker with understanding of medical conditions, weighing benefits/burdens of treatment options, for clarification of goals of treatment. Additionally will assist with any symptoms of palliative concern Thank you for the opportunity to participate in the care of Mr. Rojo. Maira Eastman Jun 27, 2017 14:37
[2017-06-27] MEDS: HALOPERIDOL 0.5 MG TAB PO SCH (17:12)
--- NOTE | 2017-06-27 23:15 | HM ---
Date Performed: 06/25/2017 Time Performed: 12:47:00 HOOKUP DATE: 06/25/17 12:47:00 PM Sat ANALYSIS START TIME: 06/25/2017 12:52:00 PM ANALYSIS END TIME: 06/26/2017 11:38:23 AM PATIENT AGE: 71 PATIENT HEIGHT PATIENT WEIGHT DRUG LIST PATIENT DIAGNOSIS: weakness TEST NARRATIVE: The patient's average heart rate was 98 BPM. Heart rates greater than 120 B PM were noted 12% of the time. No episodes of bradycardia were noted. No pauses exceeding 2.0 se conds were noted. 2843 ventricular ectopics, which represented 2% of the total beat count, were n oted. The highest ventricular ectopic frequency occurred from 08:00 PM to 09:00 PM Sat. During this time 374 VE(s) occurred. Ventricular ectopics were observed as 2766 isolated beat(s), as 30 couplet (s) and as 4 run(s). Some of the ventricular beats occurred in bigeminal cycles. No supraventric ular ectopics were noted. Multiple episodes of ST depression (defined as -1.0 mm or more) were n oted in channel 1. The maximum depression of -2.1 mm occurred at 02:38:07 AM Sun. No episodes of ST depression (defined as -1.0 mm or more) were noted in channel 2. No episodes of ST depression (defi kim as -1.0 mm or more) were noted in channel 3. NO DIARY RETURNED TEST INTERPRETATION: Atrial fibrillation with rapid ventricular response Rare PVCs No pause No V entricular tachycardia reported Si gned by : Edward Zamora
== END 2017-06-27 18:32 | DRG 312 ==
LOC: NEPE 14:25 → NEDA 17:47 → OBSVTOIN 17:47 → N05A 18:39
PROVIDERS: ADMIT Hospitalist; ATTEND Hospitalist
DX: R55 Syncope and collapse (principal); E11.43 Type 2 diabetes mellitus with diabetic autonomic (poly)neuropathy; F03.90 Unspecified dementia, unspecified severity, without behavioral disturbance, psychotic disturbance, mood disturbance, and anxiety; E11.51 Type 2 diabetes mellitus with diabetic peripheral angiopathy without gangrene; Z79.4 Long term (current) use of insulin; I95.1 Orthostatic hypotension; I48.0 Paroxysmal atrial fibrillation; Z79.02 Long term (current) use of antithrombotics/antiplatelets; I25.10 Atherosclerotic heart disease of native coronary artery without angina pectoris; Z95.1 Presence of aortocoronary bypass graft; Z86.73 Personal history of transient ischemic attack (TIA), and cerebral infarction without residual deficits; I10 Essential (primary) hypertension; E78.5 Hyperlipidemia, unspecified; H91.93 Unspecified hearing loss, bilateral; Z87.891 Personal history of nicotine dependence
CPT/HCPCS: 70450; 71045; 80048; 80053; 80162; 82550; 82948; 83735; 84439; 84443; 84484; 85025; 85610; 85730; 93005; 93225; 93226; 93306; 95819; J1815; J7030